=== PATIENT | male | born 1950 | race Caucasian/White ===

== ENCOUNTER 2024-09-19 15:19 | Inpatient (IN) ==
[2024-09-19 16:29] LABS: Basophils # (auto) 0.04 K/uL (0.00-0.20); Basophils % (auto) 0.5 %; Eosinophils # (auto) 0.13 K/uL (0.00-0.50); Eosinophils % (auto) 1.6 %; Hematocrit (blood only) 38.5 % (42.0-52.0); Hemoglobin 12.5 g/dl (14.0-18.0); Immature Granulocytes # (auto) 0.03 K/uL (0.01-0.20); Immature Granulocytes % (auto) 0.4 %; Lymphocytes # (auto) 1.09 K/uL (1.20-3.40); Lymphocytes % (auto) 13.5 %; Mean Corpuscular Hgb Conc 32.5 g/dL (32.0-36.0); Mean Corpuscular Volume 86.1 fL (80.0-100.0); Mean Platelet Volume 10.4 fL (9.4-12.4); Monocytes # (auto) 0.91 K/uL (0.11-0.59); Monocytes % (auto) 11.3 %; Neutrophils # (auto) 5.88 K/uL (1.40-6.50); Neutrophils % (auto) 72.7 %; Platelet Count 258 K/uL (130-400); RDW Coefficient of Variation 14.2 % (11.5-14.5); RDW Standard Deviation 43.7 fL (36.4-46.3); Red Blood Count 4.47 M/uL (4.70-6.10); White Blood Count 8.08 K/ul (4.8-10.8)
--- NOTE | 2024-09-19 16:41 | XRay Report ---
EXAM: Radiograph of the Chest 1 View INDICATION: Dyspnea. TECHNIQUE: Frontal view of the chest. COMPARISON: No relevant prior studies available. FINDINGS: Lungs and pleural spaces: Shallow inspiration with minimal atelectasis in the right lung base. No consolidation or pulmonary edema. No pleural effusion or pneumothorax. Heart: Shape and configuration within normal limits allowing for technique. Mediastinum: Normal contour. Bones/joints: No fracture, erosion or dislocation. Soft tissues: No abnormality noted. No radiopaque foreign body noted. Upper abdomen: No abnormality noted. IMPRESSION: No acute cardiopulmonary disease. ACT 112: Negative or not required by law. Electronically signed by Anay Lawrence 09-19-2024 4:41 PM
[2024-09-19 16:48] LABS: Albumin Globulin Ratio 1.3 (0.9-2); Albumin Level 4.4 gm/dl (3.4-5.0); Bilirubin,Total 0.6 mg/dl (0.2-1.0); Calcium 9.8 mg/dl (8.6-10.3); Creatinine Clr Calc Pharmacy 59.4 ml/min; Globulin 3.5 gm/dl (2.5-4.0); Total Protein 7.9 gm/dl (6.0-8.3)
[2024-09-19 16:51] LABS: Troponin I High Sensitivity 4.9 pg/ml (0-20)
[2024-09-19 16:55] LABS: INR 1.1 (0.9-1.1); Partial Thromboplastin Ratio 1.2; Partial Thromboplastin Time 31 Seconds (21-31); Prothrombin Time 11.4 Seconds (9.0-12.0)
[2024-09-19 17:40] LABS: Adenovirus PCR Not Detected (NotDetected); Bordetella parapertussis PCR Not Detected (NotDetected); Bordetella pertussis PCR Not Detected (NotDetected); Chlamydia pneumoniae PCR Not Detected (NotDetected); Coronavirus 229E PCR Not Detected (NotDetected); Coronavirus CoV-2 (COVID19)PCR Not Detected (NotDetected); Coronavirus HKU1 PCR Not Detected (NotDetected); Coronavirus NL63 PCR Not Detected (NotDetected); Coronavirus OC43PCR Not Detected (NotDetected); Human Metapneumovirus PCR Not Detected (NotDetected); Influenza A PCR Not Detected (NotDetected); Influenza B PCR Not Detected (NotDetected); Mycoplasma pneumoniae PCR Not Detected (NotDetected); Parainfluenza Virus 1 PCR Not Detected (NotDetected); Parainfluenza Virus 2 PCR Not Detected (NotDetected); Parainfluenza Virus 3 PCR Not Detected (NotDetected); Parainfluenza Virus 4 PCR Not Detected (NotDetected); Respiratory Syncytial VirusPCR Not Detected (NotDetected); Rhinovirus/Enterovirus PCR Not Detected (NotDetected)
[2024-09-19 17:59] LABS: Appearance Urine Clear (Clear); Bilirubin Urine Negative (Negative); Blood Urine Negative (Negative); Color Urine Yellow; Glucose Urine UA Trace (Negative); Ketones Urine Negative (Negative); Leukocyte Esterase Urine Negative (Negative); Nitrite Urine Negative (Negative); Protein Urine Negative (Negative); Specific Gravity Urine 1.011 (1.000-1.030); Urobilinogen Urine Negative (Negative); pH Urine 5.5 (4.5-7.5)
[2024-09-19 18:17] LABS: D Dimer 1160 ug/L FEU (0-500)
--- NOTE | 2024-09-19 18:26 | Emergency Department Note ---
History of Present Illness General Chief complaint: Leg Injury/Pain Stated complaint: LT LEG, PAIN, LT HIP PAIN, MAYBE PE Time Seen by Provider: 09/19/24 16:23 History of Present Illness Provider complaint: Right lower extremity pain shortness of breath Onset (ago): week(s) 1 73-year-old male presents emergency department for right lower extremity pain. Patient reports he has been having right lower extremity pain and swelling. He states this is a chronic thing however is been getting worse in the last week. He states he feels "like there is lactic acid buildup in there". Patient reports no trauma. He reports no excessive usage of his legs or repetitive movements or exercises. He reports no hematuria or dysuria. Patient does report some dyspnea on exertion. No chest pain. Patient reportedly has a history of a DVT. Home Medications Medication Instructions Recorded Confirmed Type atorvastatin 10 mg tablet 10 mg PO HS 01/24/19 09/19/24 History duloxetine 60 mg capsule,delayed 60 mg PO BID 01/24/19 09/19/24 History release glipizide 5 mg tablet 5 mg PO BID 01/24/19 09/19/24 History aspirin 81 mg chewable tablet 81 mg PO DAILY 09/19/24 09/19/24 History (Aspirin Childrens) bumetanide 1 mg tablet 1 mg PO DAILY 09/19/24 09/19/24 History diclofenac sodium 50 mg 50 mg PO DAILY 09/19/24 09/19/24 History tablet,delayed release insulin glargine-yfgn 100 unit/mL 32 unit subcut DAILY 09/19/24 09/19/24 History subcutaneous solution (Semglee (insulin glargine-yfgn)) metolazone 2.5 mg tablet 2.5 mg PO DAILY 09/19/24 09/19/24 History Allergies Allergy/AdvReac Type Severity Reaction Status Date / Time No Known Allergies Allergy Verified 09/19/24 21:31 Past Med/Surg History Problem List (Updated 09/19/24 @ 22:30 by Taran Berg DO) Leg edema Venous (peripheral) insufficiency Left leg pain Dyspnea on exertion Medical History Osteoarthritis Diabetes mellitus, type 2 Abnormal EKG Peripheral neuropathy Atrial fibrillation A FIB EPISODE IN THE PAST Hypertension Hyperlipidemia Surgical History History of arthroscopy RT KNEE X 2 LEFT KNEE X 2 Broken jaw REPAIR Social History Smoking Status: Never smoker Hx Alcohol Use: No Hx Substance Use: No Current Living Situation: Other Current Living Situation Comment: [facility] Feels Safe at Home: Yes Physical Exam Vital Signs Vital Signs - 24 hr 09/19/24 15:27 09/19/24 15:50 09/19/24 16:17 Temperature 36.4 C L Temperature Source Temporal Artery Scan Pulse Rate 104 H 101 H 96 H Pulse Rate [Apical] Pulse Rhythm [Apical] Pulse Strength [Apical] Respiratory Rate 18 21 Respiratory Effort / Characteristics Non-Labored Spontaneous Respiratory Depth Normal Respiratory Pattern Regular Blood Pressure 124/68 Blood Pressure [Left Arm] Blood Pressure Mean 86 Blood Pressure Mean [Left Arm] Blood Pressure Position [Left Arm] Pulse Oximetry 100 96 Oxygen Delivery Method Room Air Room Air Sepsis Recent Fever Within 48 Hours No Sepsis New/Unexplained Change in Mental Status N/A Sepsis Action Taken by Nursing No Action Required 09/19/24 17:19 09/19/24 19:00 09/19/24 19:50 Temperature Temperature Source Pulse Rate 125 H Pulse Rate [Apical] 94 H 95 H Pulse Rhythm [Apical] Regular Pulse Strength [Apical] Normal Respiratory Rate 22 18 Respiratory Effort / Characteristics Non-Labored Non-Labored Respiratory Depth Normal Respiratory Pattern Regular Regular Blood Pressure Blood Pressure [Left Arm] 149/92 H 148/84 H Blood Pressure Mean Blood Pressure Mean [Left Arm] 111 105 Blood Pressure Position [Left Arm] Sitting Pulse Oximetry 99 97 Oxygen Delivery Method Room Air Room Air Sepsis Recent Fever Within 48 Hours Sepsis New/Unexplained Change in Mental Status Sepsis Action Taken by Nursing 09/19/24 20:30 09/19/24 20:30 09/19/24 21:30 Temperature Temperature Source Pulse Rate 82 95 H Pulse Rate [Apical] 84 Pulse Rhythm [Apical] Pulse Strength [Apical] Respiratory Rate 22 20 Respiratory Effort / Characteristics Non-Labored Respiratory Depth Normal Respiratory Pattern Regular Blood Pressure 157/86 H Blood Pressure [Left Arm] 153/84 H Blood Pressure Mean 117 Blood Pressure Mean [Left Arm] 107 Blood Pressure Position [Left Arm] Pulse Oximetry 100 96 Oxygen Delivery Method Room Air Room Air Sepsis Recent Fever Within 48 Hours Sepsis New/Unexplained Change in Mental Status Sepsis Action Taken by Nursing 09/19/24 22:15 09/19/24 22:22 Temperature Temperature Source Pulse Rate 96 H Pulse Rate [Apical] 91 H Pulse Rhythm [Apical] Pulse Strength [Apical] Respiratory Rate 20 18 Respiratory Effort / Characteristics Non-Labored Respiratory Depth Normal Respiratory Pattern Regular Blood Pressure 148/85 H Blood Pressure [Left Arm] 148/85 H Blood Pressure Mean Blood Pressure Mean [Left Arm] 106 Blood Pressure Position [Left Arm] Pulse Oximetry 98 98 Oxygen Delivery Method Room Air Room Air Sepsis Recent Fever Within 48 Hours Sepsis New/Unexplained Change in Mental Status Sepsis Action Taken by Nursing Physical Exam GENERAL: Patient is surrounded by correctional officers and handcuffs and ankle cuffs. HENT: Exam performed. - Head: Normocephalic and atraumatic. - Right Ear: External ear normal. No mastoid erythema - Left Ear: External ear normal. No mastoid erythema - Mouth/Throat: The oropharynx is clear and moist. No trismus in the jaw. No dental abscesses or uvula swelling. No oropharyngeal exudate or tonsillar abscesses. EYES: Conjunctivae and EOM are normal. Pupils are equal, round, and reactive to light. Right eye exhibits no discharge. Left eye exhibits no discharge. No scleral icterus. NECK: Normal range of motion. Neck supple. No JVD present. CV: Normal rate, regular rhythm, normal heart sounds and intact distal pulses. Palpable radial pulses bue. PULM/CHEST: Effort normal and breath sounds normal. No respiratory distress. No stridor. He has no wheezes. He has no rales. ABD: The abdomen is soft. There is no tenderness. There is no rebound, no guarding. MUSC/SKEL: 1+ edema of the right lower extremity 2+ edema of the left lower extremity. Compartments of the bilateral lower extremities are soft. Stasis dermatitis bilaterally. Right lower extremity has palpable DP and PT pulses. Left lower extremity has signal present in the DP and PT pulses. NEURO: He is alert and oriented to person, place, and time. He has normal strength. No cranial nerve deficit or sensory deficit. Coordination and gait normal. GCS eye subscore is 4. GCS verbal subscore is 5. GCS motor subscore is 6. Cerebellar tests wnl. SKIN: Skin is warm and dry. He is not diaphoretic. PSYCH: He has a normal mood and affect. Behavior is normal. Judgment and thought content normal. Course Course 1623: The patient was evaluated in room B5. A complete history and physical exam was performed Cardiac monitoring: An order was placed for continuous cardiac monitoring. The monitor shows a rate of 90 with sinus rhythm interpreted by me 1954: Patient had a 9 beat run of V. tach. 2013: Spoke with Dr. Keller from cardiology. He stated to check the patient's magnesium and replete his electrolytes as needed. He states no amiodarone at this time. 2100: Vital signs stable.Labs are significant for a potassium of 3. Magnesium 1.3. Magnesium will be repleted in the emergency department and then potassium will be repleted. D-dimer was elevated. CT of the chest negative for PE. Ultrasound viewed by me showed no DVT. [facility]. Administered Medications Magnesium Sulfate/Dextrose (Magnesium Sulfate / D5w) 1 gm in 100 mls @ 100 mls/hr IV Q1H CANDY Stop: 09/19/24 22:57 Last Admin: 09/19/24 22:12 Dose: 100 mls/hr Documented By: Infusion: 09/19/24 22:09 Dose: Infused Documented By: Admin: 09/19/24 21:09 Dose: 100 mls/hr Documented By: CHRISTA Discontinued Medications Ioversol (Optiray 320 100ml) 118 ml IV ONCE ONE Stop: 09/19/24 18:39 Last Admin: 09/19/24 18:39 Dose: 118 ml Documented By: BOLA Medical Decision Making Laboratory Data Attestation: I reviewed the patient's lab results. 09/19/24 16:01 09/19/24 16:01 Lab Results 09/19/24 09/19/24 09/19/24 Range/Units 16:01 16:44 16:51 WBC 8.08 (4.8-10.8) K/ul RBC 4.47 L (4.70-6.10) M/uL Hgb 12.5 L (14.0-18.0) g/dl Hct 38.5 L (42.0-52.0) % MCV 86.1 (80.0-100.0) fL MCH 28.0 (25.0-34.0) pg MCHC 32.5 (32.0-36.0) g/dL RDW Std Deviation 43.7 (36.4-46.3) fL RDW Coeff of Joselin 14.2 (11.5-14.5) % Plt Count 258 (130-400) K/uL MPV 10.4 (9.4-12.4) fL Immature Gran % (Auto) 0.4 % Neut % (Auto) 72.7 % Lymph % (Auto) 13.5 % Braxton % (Auto) 11.3 % Eos % (Auto) 1.6 % Baso % (Auto) 0.5 % Neut # (Auto) 5.88 (1.40-6.50) K/uL Lymph # (Auto) 1.09 L (1.20-3.40) K/uL Braxton # (Auto) 0.91 H (0.11-0.59) K/uL Eos # (Auto) 0.13 (0.00-0.50) K/uL Baso # (Auto) 0.04 (0.00-0.20) K/uL Immature Gran # (Auto) 0.03 (0.01-0.20) K/uL PT 11.4 (9.0-12.0) Seconds INR 1.1 (0.9-1.1) APTT 31 (21-31) Seconds PTT Ratio 1.2 D-Dimer 1160 H* (0-500) ug/L FEU Sodium 138 (136-145) mmol/L Potassium 3.0 L (3.5-5.1) mmol/L Chloride 96 L (98-107) mmol/L Carbon Dioxide 33 H (21-32) mmol/L Anion Gap 9 (3-11) BUN 34 H (6-23) mg/dl Creatinine 1.36 (0.6-1.4) mg/dl Est Cr Clr Drug Dosing 59.4 ml/min eGFR 55.29 BUN/Creatinine Ratio 25.0 H (10-20) Glucose 158 H (70-99(Fasting)) mg/dl Calcium 9.8 (8.6-10.3) mg/dl Magnesium 1.3 L (1.7-2.4) mg/dl Total Bilirubin 0.6 (0.2-1.0) mg/dl AST 16 (13-39) U/L ALT 13 (7-52) U/L Alkaline Phosphatase 82 (34-104) U/L Total Creatine Kinase 131 (30-223) U/L Troponin I High Sens 4.9 (0-20) pg/ml B-Natriuretic Peptide (0-100) pg/ml Total Protein 7.9 (6.0-8.3) gm/dl Albumin 4.4 (3.4-5.0) gm/dl Globulin 3.5 (2.5-4.0) gm/dl Albumin/Globulin Ratio 1.3 (0.9-2) Urine Color Yellow Urine Appearance Clear (Clear) Urine pH 5.5 (4.5-7.5) Ur Specific [place] 1.011 (1.000-1.030) Urine Protein Negative (Negative) Urine Glucose (UA) Trace H (Negative) Urine Ketones Negative (Negative) Urine Blood Negative (Negative) Urine Nitrite Negative (Negative) Urine Bilirubin Negative (Negative) Urine Urobilinogen Negative (Negative) Ur Leukocyte Esterase Negative (Negative) Adenovirus (PCR) Not Detected (NotDetected) B. pertussis DNA (PCR) Not Detected (NotDetected) B.parapertussis DNA PCR Not Detected (NotDetected) C. pneumoniae DNA (PCR) Not Detected (NotDetected) Coronavirus OC43 (PCR) Not Detected (NotDetected) Coronavirus HKU1 (PCR) Not Detected (NotDetected) Coronavirus 229E (PCR) Not Detected (NotDetected) SARS-CoV-2 (PCR) Not Detected (NotDetected) Coronavirus NL63 (PCR) Not Detected (NotDetected) Human Metapneumovir PCR Not Detected (NotDetected) Influenza Type A (PCR) Not Detected (NotDetected) Influenza Type B (PCR) Not Detected (NotDetected) M. pneumoniae (PCR) Not Detected (NotDetected) Parainfluenza 1 (PCR) Not Detected (NotDetected) Parainfluenza 2 (PCR) Not Detected (NotDetected) Parainfluenza 3 (PCR) Not Detected (NotDetected) Parainfluenza 4 (PCR) Not Detected (NotDetected) RSV (PCR) Not Detected (NotDetected) Entero/Rhino (PCR) Not Detected (NotDetected) 09/19/24 Range/Units 17:27 WBC (4.8-10.8) K/ul RBC (4.70-6.10) M/uL Hgb (14.0-18.0) g/dl Hct (42.0-52.0) % MCV (80.0-100.0) fL MCH (25.0-34.0) pg MCHC (32.0-36.0) g/dL RDW Std Deviation (36.4-46.3) fL RDW Coeff of Joselin (11.5-14.5) % Plt Count (130-400) K/uL MPV (9.4-12.4) fL Immature Gran % (Auto) % Neut % (Auto) % Lymph % (Auto) % Braxton % (Auto) % Eos % (Auto) % Baso % (Auto) % Neut # (Auto) (1.40-6.50) K/uL Lymph # (Auto) (1.20-3.40) K/uL Braxton # (Auto) (0.11-0.59) K/uL Eos # (Auto) (0.00-0.50) K/uL Baso # (Auto) (0.00-0.20) K/uL Immature Gran # (Auto) (0.01-0.20) K/uL PT (9.0-12.0) Seconds INR (0.9-1.1) APTT (21-31) Seconds PTT Ratio D-Dimer (0-500) ug/L FEU Sodium (136-145) mmol/L Potassium (3.5-5.1) mmol/L Chloride (98-107) mmol/L Carbon Dioxide (21-32) mmol/L Anion Gap (3-11) BUN (6-23) mg/dl Creatinine (0.6-1.4) mg/dl Est Cr Clr Drug Dosing ml/min eGFR BUN/Creatinine Ratio (10-20) Glucose (70-99(Fasting)) mg/dl Calcium (8.6-10.3) mg/dl Magnesium (1.7-2.4) mg/dl Total Bilirubin (0.2-1.0) mg/dl AST (13-39) U/L ALT (7-52) U/L Alkaline Phosphatase (34-104) U/L Total Creatine Kinase (30-223) U/L Troponin I High Sens (0-20) pg/ml B-Natriuretic Peptide 25 (0-100) pg/ml Total Protein (6.0-8.3) gm/dl Albumin (3.4-5.0) gm/dl Globulin (2.5-4.0) gm/dl Albumin/Globulin Ratio (0.9-2) Urine Color Urine Appearance (Clear) Urine pH (4.5-7.5) Ur Specific [place] (1.000-1.030) Urine Protein (Negative) Urine Glucose (UA) (Negative) Urine Ketones (Negative) Urine Blood (Negative) Urine Nitrite (Negative) Urine Bilirubin (Negative) Urine Urobilinogen (Negative) Ur Leukocyte Esterase (Negative) Adenovirus (PCR) (NotDetected) B. pertussis DNA (PCR) (NotDetected) B.parapertussis DNA PCR (NotDetected) C. pneumoniae DNA (PCR) (NotDetected) Coronavirus OC43 (PCR) (NotDetected) Coronavirus HKU1 (PCR) (NotDetected) Coronavirus 229E (PCR) (NotDetected) SARS-CoV-2 (PCR) (NotDetected) Coronavirus NL63 (PCR) (NotDetected) Human Metapneumovir PCR (NotDetected) Influenza Type A (PCR) (NotDetected) Influenza Type B (PCR) (NotDetected) M. pneumoniae (PCR) (NotDetected) Parainfluenza 1 (PCR) (NotDetected) Parainfluenza 2 (PCR) (NotDetected) Parainfluenza 3 (PCR) (NotDetected) Parainfluenza 4 (PCR) (NotDetected) RSV (PCR) (NotDetected) Entero/Rhino (PCR) (NotDetected) Imaging Data Attestation: I personally reviewed and interpreted this imaging study as follows: My Impression: Chest x-ray negative. Airway clear. No pneumothorax. No consolidation. No cardiomegaly or cephalization.. No free air under the diaphragm. No fractures of the skeletal structures. Ultrasound bilateral lower extremities: No DVT Radiologist's Impression: Chest X-Ray 09/19/24 16:17 EXAM: Radiograph of the Chest 1 View INDICATION: Dyspnea. TECHNIQUE: Frontal view of the chest. COMPARISON: No relevant prior studies available. FINDINGS: Lungs and pleural spaces: Shallow inspiration with minimal atelectasis in the right lung base. No consolidation or pulmonary edema. No pleural effusion or pneumothorax. Heart: Shape and configuration within normal limits allowing for technique. Mediastinum: Normal contour. Bones/joints: No fracture, erosion or dislocation. Soft tissues: No abnormality noted. No radiopaque foreign body noted. Upper abdomen: No abnormality noted. IMPRESSION: No acute cardiopulmonary disease. ACT 112: Negative or not required by law. Electronically signed by Anay Lawrence 09-19-2024 4:41 PM Venous Doppler Study 09/19/24 17:07 Exam(s): US VENOUS BILATERAL LOWER EXTREMITIES EXAM: US Duplex Bilateral Lower Extremities Veins CLINICAL HISTORY: Reason for exam: ro dvt. TECHNIQUE: Real-time duplex ultrasound scan of the bilateral lower extremity veins integrating B-mode two-dimensional vascular structure, Doppler spectral analysis, color flow Doppler imaging and compression. COMPARISON: No relevant prior studies available. FINDINGS: Right deep veins: Unremarkable. No DVT in the right common femoral, femoral, proximal deep femoral or popliteal veins. The veins demonstrate normal color flow, are normally compressible, with normal phasic flow and/or augmentation response. Right superficial veins: Unremarkable. No thrombus in the visualized right great saphenous vein. Left deep veins: Unremarkable. No DVT in the left common femoral, femoral, proximal deep femoral or popliteal veins. The veins demonstrate normal color flow, are normally compressible, with normal phasic flow and/or augmentation response. Left superficial veins: Unremarkable. No thrombus in the visualized left great saphenous vein. Soft tissues: No acute abnormality. No popliteal cyst. IMPRESSION: No evidence of deep venous thrombosis. Electronically signed by: Saeed Polo M.D. 09/19/24 22:16 PM Chest CTA 09/19/24 18:17 EXAM: CT Angiography Chest With Intravenous Contrast INDICATION: Increased shortness of breath. History of DVT. TECHNIQUE: Axial computed tomographic angiography images of the chest with intravenous contrast. Sagittal and coronal reformatted images were created and reviewed. This CT exam was performed using one or more of the following dose reduction techniques: automated exposure control, adjustment of the mA and/or kV according to patient size, and/or use of iterative reconstruction technique. MIP reconstructed images were created and reviewed. CONTRAST: 118ml of Optiray 320 was administered intravenously. COMPARISON: No relevant prior studies available. FINDINGS: Pulmonary arteries: No abnormality noted. No pulmonary embolism. Aorta: No acute change noted. No thoracic aortic aneurysm or dissection. Great vessels of aortic arch: Normal variant aberrant right subclavian artery. Lungs and pleural spaces: There is mild lower lobe airway thickening and central peribronchial groundglass opacity. There is linear atelectasis in the right middle lobe. No significant effusion. Heart: No abnormality noted. No cardiomegaly. No significant pericardial effusion. No evidence of RV dysfunction. Bones/joints: Degenerative changes noted throughout the spine. No acute osseous abnormality seen. Soft tissues: No abnormality noted. Lymph nodes: No abnormality noted. No enlarged lymph nodes. Kidneys and ureters: Small hypodense nodule right kidney likely a cyst. No further assessment required. IMPRESSION: No pulmonary embolus or aortic dissection. ACT 112: Negative or not required by law. Electronically signed by Anay Lawrence 09-19-2024 7:09 PM ECG Data Attestation: I personally reviewed and interpreted this ECG as follows: Indication: + SOB/dyspnea Rate (beats per minute): 94 Rhythm: + normal sinus ECG Intervals/blocks: + First degree AV block and + Normal QT-c ECG ST segments: + Normal ST segments ECG Findings: + LVH Additional Comments: QRS 78 MDM Narrative 1623: The patient was evaluated in room B5. A complete history and physical exam was performed Cardiac monitoring: An order was placed for continuous cardiac monitoring. The monitor shows a rate of 90 with sinus rhythm interpreted by 1954: Patient had a 9 beat run of V. tach. 2013: Spoke with Dr. Keller from cardiology. He stated to check the patient's magnesium and replete his electrolytes as needed. He states no amiodarone at this time. 2100: Vital signs stable.Labs are significant for a potassium of 3. Magnesium 1.3. Magnesium will be repleted in the emergency department and then potassium will be repleted. D-dimer was elevated. CT of the chest negative for PE. Ultrasound viewed by me showed no DVT. [facility] Impression & Plan Hypomagnesemia, Hypokalemia, V-tach Discharge Plan Visit Data Chief Complaint: Leg Injury/Pain Stated Complaint: LT LEG, PAIN, LT HIP PAIN, MAYBE PE ED Provider: Nabil Avila Discharge Problem: Hypomagnesemia, Hypokalemia, V-tach Patient Disposition: Admitted As Inpatient Discharge Instructions Interventions: ED Discharge Assessment Last Done: 09/19/24 22:22 Forms Stand Alone Forms: [facility] Prescriptions Prescriptions: No Action atorvastatin 10 mg Tablet 10 mg PO HS glipizide 5 mg Tablet 5 mg PO BID duloxetine 60 mg Capsule,Delayed Release(Dr/Ec) 60 mg PO BID aspirin [Aspirin Childrens] 81 mg Tablet,Chewable 81 mg PO DAILY metolazone 2.5 mg Tablet 2.5 mg PO DAILY insulin glargine-yfgn [Semglee(insulin glargine-yfgn)] 100 unit/mL Solution 32 unit SUBCUT DAILY bumetanide 1 mg Tablet 1 mg PO DAILY diclofenac sodium 50 mg Tablet,Delayed Release (Dr/Ec) 50 mg PO DAILY Referrals Referrals: Inessa LEVINE [Primary Care Provider] -
[2024-09-19] MEDS: OPTIRAY 320 100ml IV ONE (18:39)
--- NOTE | 2024-09-19 19:09 | CT Scan Report ---
EXAM: CT Angiography Chest With Intravenous Contrast INDICATION: Increased shortness of breath. History of DVT. TECHNIQUE: Axial computed tomographic angiography images of the chest with intravenous contrast. Sagittal and coronal reformatted images were created and reviewed. This CT exam was performed using one or more of the following dose reduction techniques: automated exposure control, adjustment of the mA and/or kV according to patient size, and/or use of iterative reconstruction technique. MIP reconstructed images were created and reviewed. CONTRAST: 118ml of Optiray 320 was administered intravenously. COMPARISON: No relevant prior studies available. FINDINGS: Pulmonary arteries: No abnormality noted. No pulmonary embolism. Aorta: No acute change noted. No thoracic aortic aneurysm or dissection. Great vessels of aortic arch: Normal variant aberrant right subclavian artery. Lungs and pleural spaces: There is mild lower lobe airway thickening and central peribronchial groundglass opacity. There is linear atelectasis in the right middle lobe. No significant effusion. Heart: No abnormality noted. No cardiomegaly. No significant pericardial effusion. No evidence of RV dysfunction. Bones/joints: Degenerative changes noted throughout the spine. No acute osseous abnormality seen. Soft tissues: No abnormality noted. Lymph nodes: No abnormality noted. No enlarged lymph nodes. Kidneys and ureters: Small hypodense nodule right kidney likely a cyst. No further assessment required. IMPRESSION: No pulmonary embolus or aortic dissection. ACT 112: Negative or not required by law. Electronically signed by Anay Lawrence 09-19-2024 7:09 PM
[2024-09-19 20:33] LABS: Magnesium 1.3 mg/dl (1.7-2.4)
[2024-09-19] MEDS ORDERED: POTASSIUM CHLORIDE 10 MEQ TABCR PO STA (20:57)
[2024-09-19] MEDS: MAGNESIUM SULFATE / D5W 1 GM/100 ML BAG IV SCH (21:09)
--- NOTE | 2024-09-19 21:55 | History & Physical Report ---
Date of Service September 19, 2024 Assessment & Plan (1) Dyspnea on exertion: (2) Left leg pain: (3) Diabetes mellitus, type 2: (4) Hypertension: (5) Hyperlipidemia: (6) Peripheral neuropathy: (7) Venous (peripheral) insufficiency: (8) Osteoarthritis: (9) Leg edema: (10) Atrial fibrillation: Plan 73 yo male PMHx cardiomegaly, T2DM on insulin, HLD, HTN, PVD, venous insufficiency, osteoarthritis, neuropathy who was in his usual state of health until one week ago is admitted with LLE pain and CAMARA. #Dyspnea on exertion CTA negative for PE Had run of Vtach in ED Mg and K low on admission - repleted, repeat labs in am Troponin negative Case discussed with Dr. Keller - no further management needed tonight if patient remains hemodynamically stable Cardiology consult placed Echo with bubble study ordered No history of AR, CHF but significant PVD History of afib - pt states this is paroxysmal, not on anticoagulation, would consider starting if not contraindicated #Left leg pain Has chronic leg pain/arthritis but says this is different from baseline LE dopplers performed, no evidence of DVT CK normal In setting of chronic venous stasis/PVD would consider vascular consult Patient on Bumex and metolazone - will continue Bumex, hold metolazone in setting of electrolyte abnormalities #T2DM Hold home glipizide Insulin ISS Glargine 18U BID #HTN Not currently on medication besides diuretics #HLD Cont atorvastatin #Peripheral neuropathy/arthritis Cont duloxetine Cont diclofenac - Cr acceptable FENGI: heart health/DM2 Code status: full DVT prophylaxis: lovenox Isolation: none Disposition: med-tele History of Present Illness Primary Care Provider: ABNER Wylie 73 yo male PMHx cardiomegaly, T2DM on insulin, HLD, HTN, PVD, venous insufficiency, osteoarthritis, neuropathy who was in his usual state of health until one week ago is admitted with LLE pain and CAMARA. Over the last week the patient states that he has had progressive LLE pain, primarily in the thigh that he describes as "lactic acid buildup" and cramping. He is able to ambulate normally. He has also noted that he has had increasing CAMARA with ambulation of distances of 30-40 feet. He denies chest pain during these episodes, he states that he just becomes "winded." At the time of our encounter he denies CP, SOB, abdominal pain, nausea, vomiting, lightheadedness, dizziness, and diarrhea. ED course: Labs revealed low sodium and mag - these were repleted CTA performed was negative for acute PE LE dopplers were performed - no acute DVT present Allergies Allergy/AdvReac Type Severity Reaction Status Date / Time No Known Allergies Allergy Verified 09/19/24 21:31 Home Medications Medication Instructions Recorded Confirmed Type atorvastatin 10 mg tablet 10 mg PO HS 01/24/19 09/19/24 History duloxetine 60 mg capsule,delayed 60 mg PO BID 01/24/19 09/19/24 History release glipizide 5 mg tablet 5 mg PO BID 01/24/19 09/19/24 History aspirin 81 mg chewable tablet 81 mg PO DAILY 09/19/24 09/19/24 History (Aspirin Childrens) bumetanide 1 mg tablet 1 mg PO DAILY 09/19/24 09/19/24 History diclofenac sodium 50 mg 50 mg PO DAILY 09/19/24 09/19/24 History tablet,delayed release insulin glargine-yfgn 100 unit/mL 32 unit subcut DAILY 09/19/24 09/19/24 History subcutaneous solution (Semglee (insulin glargine-yfgn)) metolazone 2.5 mg tablet 2.5 mg PO DAILY 09/19/24 09/19/24 History Past Med/Surg History Problem List Leg edema Venous (peripheral) insufficiency Left leg pain Dyspnea on exertion Medical History Osteoarthritis Diabetes mellitus, type 2 Abnormal EKG Peripheral neuropathy Atrial fibrillation A FIB EPISODE IN THE PAST Hypertension Hyperlipidemia Surgical History History of arthroscopy RT KNEE X 2 LEFT KNEE X 2 Broken jaw REPAIR Social History Smoking Status: Never smoker Hx Alcohol Use: No Hx Substance Use: No Current Living Situation: Other Current Living Situation Comment: [facility] Feels Safe at Home: Yes Review of Systems Review of Systems: reviewed, per HPI Physical Exam Physical Exam: Constitutional: age appropriate, no acute distress HEENT: NCAT, no conjunctival injection CV: regular rhythm, no murmur appreciated, extremities well-perfused, +trace edema b/l LE Resp: CTABL, no wheezes/rales/rhonchi appreciated, no increased work of breathing GI: non-distended MSK: no gross deformities appreciated Skin: warm, dry, no rash appreciated, venous stasis discoloration L>R in b/l LE - states this is his baseline Neuro: alert, oriented, no focal neurologic deficit appreciated Results & Data Results & Data Vital Signs (Past 12 Hours) Vital Signs Temp Pulse Pulse Resp BP BP Pulse Ox 09/19/24 21:30 95 H 20 157/86 H 96 09/19/24 20:30 82 09/19/24 20:30 84 22 153/84 H 100 09/19/24 19:50 125 H 09/19/24 19:00 95 H 18 148/84 H 97 09/19/24 17:19 94 H 22 149/92 H 99 09/19/24 16:17 96 H 21 96 09/19/24 15:50 101 H 09/19/24 15:27 36.4 C L 104 H 18 124/68 100 O2 Del Method 09/19/24 21:30 Room Air 09/19/24 20:30 09/19/24 20:30 Room Air 09/19/24 19:50 09/19/24 19:00 Room Air 09/19/24 17:19 Room Air 09/19/24 16:17 Room Air 09/19/24 15:50 09/19/24 15:27 Room Air Code Status & VTE Plan VTE Prophylaxis Plan VTE Prophylaxis will be ordered: Yes Supervising Physician Co-Signing Physician Notes Patient seen and examined, chart reviewed, case discussed with Dr. Berg and I agree with the assessment and plan as above. In brief, patient is a 73yo male, currently incarcerated, presenting with LE discomfort and edema a well as CAMARA. Patient with reported brief run of NSVT x 9 beats in the ER On exam he is resting comfortably, NAD Skin - chronic venous stasis changes present on bilateral LE, do not appear to be infected HEENT- MMM, Neck supple Heart - +S1/S2, regular with ectopy, no m/r/g Lungs - CTA, no rales/rhonchi/wheezes Abd - +BS, soft, NT/ND Ext- chronic venous stasis changes present Labs and images reviewed [id number]=[id number] K=3 Mg=1.3 Assessment/plan NSVT - noted in the ER. Electrolytes being repleted (Mg x 2gm, KCl 40mEq ordered again) Check 2D echo Telemetry monitoring - may need outpatient monitoring Remainder as above Resident Activity Tracking Resident Involvement: Resident Care Provided Care Provided: Adult Hospital Medicine (3) Diabetes mellitus, type 2 Diabetes mellitus complication detail: with polyneuropathy Diabetes mellitus complication status: with neurologic complications Diabetes mellitus residential insulin use: with residential use Qualified Code(s): E11.42 - Type 2 diabetes mellitus with diabetic polyneuropathy; Z79.4 - [facility] (current) use of insulin (4) Hypertension Hypertension type: primary hypertension Qualified Code(s): I10 - Essential (primary) hypertension (5) Hyperlipidemia Hyperlipidemia type: unspecified Qualified Code(s): E78.5 - Hyperlipidemia, unspecified (6) Peripheral neuropathy Peripheral neuropathy type: polyneuropathy associated with underlying disease Qualified Code(s): G63 - Polyneuropathy in diseases classified elsewhere (8) Osteoarthritis Osteoarthritis location: multiple joints Osteoarthritis type: primary Qualified Code(s): M15.0 - Primary generalized (osteo)arthritis (10) Atrial fibrillation Atrial fibrillation type: paroxysmal Qualified Code(s): I48.0 - Paroxysmal atrial fibrillation
--- NOTE | 2024-09-19 22:17 | Ultrasound Report ---
Exam(s): US VENOUS BILATERAL LOWER EXTREMITIES EXAM: US Duplex Bilateral Lower Extremities Veins CLINICAL HISTORY: Reason for exam: ro dvt. TECHNIQUE: Real-time duplex ultrasound scan of the bilateral lower extremity veins integrating B-mode two-dimensional vascular structure, Doppler spectral analysis, color flow Doppler imaging and compression. COMPARISON: No relevant prior studies available. FINDINGS: Right deep veins: Unremarkable. No DVT in the right common femoral, femoral, proximal deep femoral or popliteal veins. The veins demonstrate normal color flow, are normally compressible, with normal phasic flow and/or augmentation response. Right superficial veins: Unremarkable. No thrombus in the visualized right great saphenous vein. Left deep veins: Unremarkable. No DVT in the left common femoral, femoral, proximal deep femoral or popliteal veins. The veins demonstrate normal color flow, are normally compressible, with normal phasic flow and/or augmentation response. Left superficial veins: Unremarkable. No thrombus in the visualized left great saphenous vein. Soft tissues: No acute abnormality. No popliteal cyst. IMPRESSION: No evidence of deep venous thrombosis. Electronically signed by: Saeed Polo M.D. 09/19/24 22:16 PM
[2024-09-19] MEDS ORDERED: MAGNESIUM HYDROXIDE SUSP 30 ML UDC PO PRN (23:23)
[2024-09-19] MEDS ORDERED: DEXTROSE 50% 50 ML SYRINGE IV PRN (23:23)
[2024-09-19] MEDS ORDERED: GLUCOSE 10 TAB/TUBE PO PRN (23:23)
[2024-09-19] MEDS ORDERED: CARBOHYDRATES FOR HYPOGLYCEMIA PO PRN (23:23)
[2024-09-19] MEDS ORDERED: POLYETHYLENE (MIRALAX) 17 GM PACK PO PRN (23:23)
[2024-09-19] MEDS ORDERED: ALUMINUM/MAGNESIUM SUSP 30 ML UDC PO PRN (23:23)
[2024-09-19] MEDS ORDERED: GLUCOSE 40% GEL 15 GM TUBE PO PRN (23:23)
[2024-09-19] MEDS ORDERED: ONDANSETRON INJ 2 MG/ML 2 ML VIAL IV PRN (23:23)
[2024-09-19] MEDS ORDERED: ACETAMINOPHEN 325 MG TAB PO PRN (23:23)
[2024-09-19] MEDS ORDERED: GLUCAGON FOR INJ 1 MG VIAL SQ PRN (23:23)
--- NOTE | 2024-09-19 23:58 | Billing Data ---
Date of Service September 19, 2024 Coding Level of Care Code 92337 INT INP/OBS CARE
[2024-09-20] MEDS: POTASSIUM CHLORIDE CRTAB 20 MEQ TABCR PO STA (00:32)
[2024-09-20] MEDS: POTASSIUM CHLORIDE 10 MEQ TABCR PO ONE (02:57)
[2024-09-20 06:26] LABS: Basophils # (auto) 0.04 K/uL (0.00-0.20); Basophils % (auto) 0.4 %; Eosinophils # (auto) 0.15 K/uL (0.00-0.50); Eosinophils % (auto) 1.6 %; Hematocrit (blood only) 37.5 % (42.0-52.0); Hemoglobin 12.6 g/dl (14.0-18.0); Immature Granulocytes # (auto) 0.02 K/uL (0.01-0.20); Immature Granulocytes % (auto) 0.2 %; Lymphocytes # (auto) 1.22 K/uL (1.20-3.40); Lymphocytes % (auto) 13.1 %; Mean Corpuscular Hemoglobin 28.3 pg (25.0-34.0); Mean Corpuscular Hgb Conc 33.6 g/dL (32.0-36.0); Mean Corpuscular Volume 84.3 fL (80.0-100.0); Mean Platelet Volume 10.7 fL (9.4-12.4); Monocytes # (auto) 0.87 K/uL (0.11-0.59); Monocytes % (auto) 9.4 %; Neutrophils % (auto) 75.3 %; Platelet Count 264 K/uL (130-400); RDW Coefficient of Variation 14.1 % (11.5-14.5); RDW Standard Deviation 43.4 fL (36.4-46.3); Red Blood Count 4.45 M/uL (4.70-6.10)
[2024-09-20 07:04] LABS: Albumin Globulin Ratio 1.1 (0.9-2); Albumin Level 3.7 gm/dl (3.4-5.0); Calcium 9.5 mg/dl (8.6-10.3); Creatinine Clr Calc Pharmacy 75.4 ml/min; Globulin 3.5 gm/dl (2.5-4.0); Magnesium 1.6 mg/dl (1.7-2.4); Potassium 3.1 mmol/L (3.5-5.1); Total Protein 7.2 gm/dl (6.0-8.3)
[2024-09-20 07:15] LABS: Estimated Average Glucose 177 mg/dl; Hemoglobin A1C 7.8 % (4.5-5.6)
[2024-09-20] MEDS: ASPIRIN 81 MG ECTAB PO SCH (08:34)
[2024-09-20] MEDS: BUMETANIDE 1 MG TAB PO SCH (08:35)
[2024-09-20] MEDS: DULoxetine HCL 60 MG CAP PO SCH (08:35)
[2024-09-20] MEDS: ENOXAPARIN INJ 40 MG/0.4 ML SYR SQ SCH (08:35)
[2024-09-20] MEDS: DICLOFENAC SODIUM 25 MG TABDR PO SCH (08:35)
[2024-09-20] MEDS: LANTUS PER UNIT CHARGE SQ SCH (08:41)
[2024-09-20] MEDS: INSULIN ASPART PER UNIT CHARGE SC SCH (08:42)
--- NOTE | 2024-09-20 08:50 | Electrocardiogram Report ---
Test Reason : Blood Pressure : */* mmHG Vent. Rate : 94 BPM Atrial Rate : 94 BPM P-R Int : 242 ms QRS Dur : 78 ms QT Int : 372 ms P-R-T Axes : 46 -35 24 degrees QTcB Int : 465 ms Sinus rhythm with 1st degree A-V block Left anterior fascicular block Minimal voltage criteria for LVH, may be normal variant ( R in aVL ) Possible Old Anteroseptal infarct Abnormal ECG No previous ECGs available Confirmed by Pan Keller [id number]) on 09/20/2024 8:50:42 AM Referred By: Inessa LEVINE Confirmed By: Pan Keller
--- NOTE | 2024-09-20 08:56 | Hospitalist Progress Note ---
Date of Service September 20, 2024 Assessment & Plan (1) Dyspnea on exertion: Plan: Presented with LLE pain and CAMARA x 1 week - CXR unremarkable, CTA negative for PE, venous Doppler negative for DVT - Troponin negative - Had 9 beat run of Vtach in ED - suspect secondary to electrolyte derangements - Hypokalemia and hypomagnesemia persist despite repletion > Mag and potassium repleted. Monitor with AM labs - No history of ME, CHF but significant PVD - History of afib - pt states this is paroxysmal, not on anticoagulation - EKG shows NSR with 1st degree AV block - Reviewed telemetry -- NSR in 90s - Echo with bubble study: EF>70%, no interarterial shunt, hyperdynamic LV with mild dynamic LV outflow tract obstruction - Cardiology consulted, appreciate recommendations > Recommend discontinuing diuretics and using compression stockings. Loss of mild progressive lower extremity edema to avoid volume depletion electrolyte derangement > If using PRN diuretic for abrupt weight gain, also prescribe oral K and mag supplements to be taken with diuretic (2) Left leg pain: Plan: Has chronic leg pain/arthritis but says this is different from baseline - Venous Doppler negative for DVT - CK normal - Patient on Bumex and metolazone - cardiology recommends DISCONTINUING diuretics in setting of euvolemia to mild hypovolemia - Suspect lumbar radiculopathy or hip arthritis related (3) Diabetes mellitus, type 2: Plan: Hold home glipizide Glargine 18U BID SSI, adjust as needed: --Goal BSG Range: Low 100 mg/dL, High 140 mg/dL --Correction Factor: 25 mg/dL/unit --Carbohydrate ratio = 8 g/unit --BSGs ACHS if eating, q6h if npo A1c 7.8% (4) Hypertension: Plan: Not currently on medication besides diuretics - Blood pressures stable Plan Repleted potassium and magnesium Reviewed telemetry Discontinued diuretics Chronic stable issues: Hyperlipidemia: Continue atorvastatin Peripheral neuropathy/arthritis: Continue duloxetine and diclofenac, Cr acceptable VTE PPx: Lovenox CODE STATUS: Full code Admission and Anticipated Discharge Date Admission Date: September 19, 2024 Subjective Patient seen and evaluated at bedside with correctional guards present. He reports feeling well at this time. He states his CAMARA began about 1 week ago, denies any precipitating factors. He notes his LLE has a chronic dull achy pain, with intermittent sharp cramping. We discussed repleting his electrolyte abnormalities and his imaging results so far. We also discussed potentially changing his diuretic regimen. Patient was cooperative and respectful throughout visit. He denies any additional complaints or concerns at this time. Physical Exam Physical Exam: General: No acute distress, nondiaphoretic, well-developed, well-nourished. Skin: Venous stasis discoloration L>R in lower extremities bilaterally. No edema noted. Cardiac: Regular rate and rhythm without murmurs gallops or rubs. Pulm: Clear to auscultation bilaterally without wheezes, rales or rhonchi. No respiratory distress. 95% on room air. Abdominal: Soft, nontender, nondistended. Bowel sounds present. Neuro: A&O x3. No focal neurological deficits. Results & Data Results & Data Vital Signs (Past 12 Hours) Vital Signs Temp Pulse Pulse Pulse Resp BP BP 09/20/24 08:00 09/20/24 07:57 97.7 F 97 H 18 134/80 09/20/24 07:00 103 H 09/20/24 04:16 98.2 F 103 H 18 144/84 H 09/19/24 23:40 97 H 09/19/24 23:15 99.3 F 97 H 18 146/82 H 09/19/24 22:22 96 H 18 148/85 H 09/19/24 22:15 91 H 20 148/85 H 09/19/24 21:30 95 H 20 157/86 H Pulse Ox O2 Del Method 09/20/24 08:00 Room Air 09/20/24 07:57 95 Room Air 09/20/24 07:00 09/20/24 04:16 94 Room Air 09/19/24 23:40 09/19/24 23:15 96 Room Air 09/19/24 22:22 98 Room Air 09/19/24 22:15 98 Room Air 09/19/24 21:30 96 Room Air Laboratory Results Reviewed CBC Reviewed chemistries Reviewed UA Reviewed respiratory biofire Diagnostic Findings Reviewed CXR Reviewed chest CTA Reviewed venous dopplers Reviewed echocardiogram Interpretation summary Left ventricle is hyperdynamic. Left ventricular EF=> 70%. Mild dynamic left ventricular outflow tract obstruction. The left ventricular wall motion is normal. There is mild concentric left ventricular hypertrophy. The right ventricular cavity is small. The right ventricular systolic function is normal. Vena cava not visualized, likely reduced diameter. No significant valvular disease. Injection of contrast documented no interarterial shunt. PG Care Time/CCT Total # of Minutes Spent Total Time Spent with Patient: Total time spent is greater than 50% in coordination of care (as documented) at patient's floor/unit and/or counseling patient: Coding Level of Care Code 74699 SUB INP/OBS CARE 3/50MIN Diagnoses Dyspnea on exertion R06.09 Left leg pain M79.605 Type 2 diabetes mellitus with diabetic polyneuropathy, with long-term current use of insulin E11.42; Z79.4 Diabetes mellitus complication detail: with polyneuropathy Diabetes mellitus complication status: with neurologic complications Diabetes mellitus intermodal truck driver insulin use: with intermodal truck driver use Primary hypertension I10 Hypertension type: primary hypertension (3) Diabetes mellitus, type 2 Diabetes mellitus complication detail: with polyneuropathy Diabetes mellitus complication status: with neurologic complications Diabetes mellitus residential insulin use: with intermodal truck driver use Qualified Code(s): E11.42 - Type 2 diabetes mellitus with diabetic polyneuropathy; Z79.4 - [facility] (current) use of insulin (4) Hypertension Hypertension type: primary hypertension Qualified Code(s): I10 - Essential (primary) hypertension
[2024-09-20] MEDS: POTASSIUM CHLORIDE / WTR 10 MEQ/100 ML PLCT IV SCH (09:11)
[2024-09-20] MEDS: POTASSIUM CHLORIDE CRTAB 20 MEQ TABCR PO SCH (09:11)
[2024-09-20] MEDS: MAGNESIUM SULFATE / D5W 1 GM/100 ML BAG IV SCH (09:12)
--- NOTE | 2024-09-20 11:44 | Cardiology Consultation ---
Date of Consultation September 20, 2024 Assessment & Plan (1) Nonsustained ventricular tachycardia: (2) Venous (peripheral) insufficiency: (3) Dyspnea on exertion: (4) Hypokalemia: (5) Hypomagnesemia: (6) Left leg pain: Plan 73-year-old man with no cardiac history on chronic diuretics for leg edema who presented with leg pain but was admitted due to history of recent decline in exercise tolerance and a single 9 beat episode of ventricular tachycardia while in the ER. He currently appears euvolemic (based on neck veins) to mildly hypovolemic (based on hyperdynamic LV with dynamic LVOT obstruction and tachycardic response to upright position/minor activity such as walking to the bathroom) with no evidence of leg edema, as such would discontinue his diuretics. By history he has no orthopnea or PND, his chest x-ray and chest CT showed no pulmonary edema, his BNP is normal, thus no evidence of current or recent heart failure. Would allow some mild permissive leg edema to avoid volume depletion and electrolyte derangement from chronic high-dose diuretics, could use compression stockings and perhaps intermittent/PRN diuretic use for recurrent leg edema if associated with any abrupt weight gain (suggesting generalized volume overload rather than localized fluid redistribution). Most certainly his transient/minor ventricular dysrhythmia was caused or exacerbated by hypokalemia/hypomagnesemia, agree with IV electrolyte replacement. Could add oral potassium/magnesium supplements as well, would also prescribe oral potassium/magnesium supplements to be taken in the future along with diuretics (if and when diuretics resume). No evidence of myocardial ischemia, cardiomyopathy, or any other acute or chronic cardiac issue which would likely predispose him to dysrhythmia. Telemetry is benign overnight and likely will remain benign upon the correction of his electrolyte abnormalities. Suspect his recent decline in exercise tolerance is related to his metabolic/electrolyte derangements. His leg pain seems to be either lumbar radiculopathy or hip arthritis related, excellent pulses and capillary refill way against peripheral arterial disease. Will continue to follow during his current hospitalization. History of Present Illness Reason for Consultation: CAMARA, 9beat run V tach Requesting Physician: Abad Vallejo MD Attending Physician: Abad Vallejo MD History of Present Illness 73-year-old man, resident of [facility], with no cardiac history who was admitted 09/19/2024 after presenting with with left leg pain who had a 9 beat run of ventricular tachycardia and recent decline in exercise tolerance. About 5 years ago he was hospitalized at [facility] for unclear reasons, subsequently he was placed on daily diuretics for leg edema, he denied any history of heart failure or other cardiac problems. He has noted some increased fatigue and decreased exercise tolerance in recent weeks or months, but he denies any orthopnea, PND, chest pain, subjective palpitations (other than a brief fluttering in the ER during his V. tach episode), recent weight gain, or any other potentially cardiac complaints other than chronic leg edema. No recent change in his diuretic dose or diet, he avoids added salt but is not on a sodium restricted diet. His leg edema is essentially resolved currently, his only complaint is chronic left leg discomfort. He had back surgery several years ago for sciatica. His current pain does occur at rest and has a positional component, radiates around the left hip toward the anterior medial aspect of his left thigh, worse with ambulation. Aside from his leg discomfort, no somatic complaints at the time of my evaluation. Telemetry overnight showed sinus rhythm with occasional sinus tachycardia (up to 140 bpm when he walked to the bathroom), no ventricular ectopy or ventricular tachycardia noted. Allergies Allergy/AdvReac Type Severity Reaction Status Date / Time No Known Allergies Allergy Verified 09/19/24 21:31 Home Medications Medication Instructions Recorded Confirmed Type atorvastatin 10 mg tablet 10 mg PO HS 01/24/19 09/19/24 History duloxetine 60 mg capsule,delayed 60 mg PO BID 01/24/19 09/19/24 History release glipizide 5 mg tablet 5 mg PO BID 01/24/19 09/19/24 History aspirin 81 mg chewable tablet 81 mg PO DAILY 09/19/24 09/19/24 History (Aspirin Childrens) bumetanide 1 mg tablet 1 mg PO DAILY 09/19/24 09/19/24 History diclofenac sodium 50 mg 50 mg PO DAILY 09/19/24 09/19/24 History tablet,delayed release insulin glargine-yfgn 100 unit/mL 32 unit subcut DAILY 09/19/24 09/19/24 History subcutaneous solution (Semglee (insulin glargine-yfgn)) metolazone 2.5 mg tablet 2.5 mg PO DAILY 09/19/24 09/19/24 History Patient History Medical History Osteoarthritis Diabetes mellitus, type 2 Abnormal EKG Peripheral neuropathy Atrial fibrillation A FIB EPISODE IN THE PAST Hypertension Hyperlipidemia Surgical History History of arthroscopy RT KNEE X 2 LEFT KNEE X 2 Broken jaw REPAIR Social History Smoking Status: Never smoker Hx Alcohol Use: No Hx Substance Use: No Preferred Language: Welsh Communication Ability: Effective Fieldwork Coordinator Required: No Beliefs That Will Affect Care: None Current Living Situation: Other Current Living Situation Comment: [facility] Feels Safe at Home: Yes Assistive Devices: None Physical Exam Physical Exam: No distress. Afebrile. BP normotensive. Pulse 98 bpm and regular without ectopy. Respirations 18 and unlabored. Skin: no ecchymoses or generalized lesions. HEENT: unremarkable. Neck: JVP at the clavicle at 90 degrees, no carotid bruits. Lungs: clear bilaterally. Cardiac: regular rhythm, normal S1-2, no murmur. Abdomen: benign. Extremities: Pigmentary stasis changes pretibial region, no current edema (skin is wrinkled, suggesting prior edema), brisk posterior tibial pulses, excellent pedal capillary refill (1 to 2 seconds). Neurologic: normal affect and conversation, nonfocal. Results & Data Vital Signs (Past 12 Hours) Vital Signs Temp Pulse Pulse Resp BP Pulse Ox O2 Del Method 09/20/24 08:00 Room Air 09/20/24 07:57 97.7 F 97 H 18 134/80 95 Room Air 09/20/24 07:00 103 H 09/20/24 04:16 98.2 F 103 H 18 144/84 H 94 Room Air Laboratory Results Hemoglobin 12.6 with normal white count platelet count. Initial potassium 3.0, 3.1 today, BUN 27, creatinine 1.04, initial magnesium 1.3 up to 1.6 today. Hemoglobin A1c 7.8%. Normal transaminases. BNP 25. Diagnostic Findings ECG showed sinus rhythm with first-degree AV block, left anterior fascicular block, minimal voltage for LVH, possible old anteroseptal infarct. No prior study available. Chest x-ray unremarkable. Chest CT with no pulmonary embolism or other significant pathology. Lower extremity venous Dopplers negative for DVT. Echocardiogram today showed hyperdynamic LV function (EF greater than 70%) with mild dynamic left ventricular outflow tract obstruction, decreased RV size, and diminished IVC diameter, all suggestive of volume depletion. PG Care Time/CCT Total # of Minutes Spent Total Time Spent with Patient: Total time spent is greater than 50% in coordination of care (as documented) at patient's floor/unit and/or counseling patient: Coding Level of Care Code 58770 IN/OBS CONSULT LVL 4,60M Diagnoses Nonsustained ventricular tachycardia I47.29 Venous (peripheral) insufficiency I87.2 Dyspnea on exertion R06.09 Hypokalemia E87.6 Hypomagnesemia E83.42 Left leg pain M79.605
--- NOTE | 2024-09-20 12:06 | XCELERA ---
[id number]
[2024-09-20] MEDS: ATORVASTATIN 10 MG TAB PO SCH (20:24)
[2024-09-21 06:23] LABS: Basophils # (auto) 0.03 K/uL (0.00-0.20); Basophils % (auto) 0.4 %; Eosinophils # (auto) 0.18 K/uL (0.00-0.50); Eosinophils % (auto) 2.1 %; Hematocrit (blood only) 36.4 % (42.0-52.0); Hemoglobin 12.1 g/dl (14.0-18.0); Immature Granulocytes # (auto) 0.02 K/uL (0.01-0.20); Immature Granulocytes % (auto) 0.2 %; Lymphocytes # (auto) 1.41 K/uL (1.20-3.40); Lymphocytes % (auto) 16.7 %; Mean Corpuscular Hemoglobin 28.5 pg (25.0-34.0); Mean Corpuscular Hgb Conc 33.2 g/dL (32.0-36.0); Mean Corpuscular Volume 85.6 fL (80.0-100.0); Mean Platelet Volume 11.1 fL (9.4-12.4); Monocytes # (auto) 0.85 K/uL (0.11-0.59); Monocytes % (auto) 10.1 %; Neutrophils # (auto) 5.96 K/uL (1.40-6.50); Neutrophils % (auto) 70.5 %; Platelet Count 250 K/uL (130-400); RDW Coefficient of Variation 14.4 % (11.5-14.5); RDW Standard Deviation 44.8 fL (36.4-46.3); Red Blood Count 4.25 M/uL (4.70-6.10); White Blood Count 8.45 K/ul (4.8-10.8)
[2024-09-21 06:45] LABS: Albumin Globulin Ratio 1.1 (0.9-2); Albumin Level 3.6 gm/dl (3.4-5.0); BUN Creatinine Ratio 24.2 (10-20); Bilirubin,Total 0.9 mg/dl (0.2-1.0); Calcium 9.1 mg/dl (8.6-10.3); Creatinine Clr Calc Pharmacy 59.4 ml/min; Globulin 3.3 gm/dl (2.5-4.0); Magnesium 1.7 mg/dl (1.7-2.4); Potassium 3.8 mmol/L (3.5-5.1); Total Protein 6.9 gm/dl (6.0-8.3)
[2024-09-21 07:41] VITALS: RESP 16; O2SAT 94
--- NOTE | 2024-09-21 10:12 | Cardiology Progress Note ---
Date of Service September 21, 2024 Assessment & Plan (1) Nonsustained ventricular tachycardia: (2) Venous (peripheral) insufficiency: (3) Dyspnea on exertion: (4) Hypokalemia: (5) Hypomagnesemia: (6) Left leg pain: Plan As noted in consultation, would have him remain off diuretics for now, if leg edema recurs could use occasional/PRN diuretic with concurrent potassium/magnesium supplement. Recommend low-sodium diet upon his return to halfway. Could explore venous ablation for his chronic venous insufficiency as a future outpatient procedure. His episodic sinus tachycardia may still be related to some degree of volume depletion, if so this should paola now that he is off diuretics. No further ventricular dysrhythmias. His leg pain seems to be either lumbar radiculopathy or hip arthritis related, excellent pulses and capillary refill weigh against peripheral arterial disease. Admission and Anticipated Discharge Date Admission Date: September 19, 2024 Subjective His only ongoing somatic implant is left leg pain. He did note brief tachypalpitations this morning, resolved without intervention. He denies chest pain, dyspnea, or orthostatic lightheadedness. His diuretic (bumetanide) was discontinued as of this morning (last dose yesterday). Telemetry showed only sinus rhythm, with occasional PVCs and brief episodes of sinus tachycardia (up to 130 bpm). No ventricular dysrhythmias subsequent to the single 9 beat run of ventricular tachycardia in the ER 2 days ago. Physical Exam Physical Exam: No distress. Afebrile. BP normotensive. Pulse 105 bpm and regular without ectopy. Respirations 16 and unlabored. Skin: no ecchymoses or generalized lesions. HEENT: unremarkable. Neck: JVP at the clavicle at 90 degrees, no carotid bruits. Lungs: clear bilaterally. Cardiac: regular rhythm, normal S1-2, no murmur. Abdomen: benign. Extremities: Pigmentary stasis changes pretibial region, no current edema (skin is wrinkled, suggesting prior edema), brisk posterior tibial pulses, excellent pedal capillary refill (1 to 2 seconds). Neurologic: normal affect and conversation, nonfocal. Results & Data Vital Signs (Past 12 Hours) Vital Signs Temp Pulse Pulse Resp BP Pulse Ox O2 Del Method 09/21/24 08:00 Room Air 09/21/24 07:40 98.4 F 105 H 16 134/81 94 Room Air 12/08/24 07:00 98 H 09/21/24 03:45 97.7 F 96 H 18 107/64 93 Room Air 09/21/24 03:30 Room Air 09/21/24 03:30 90 09/20/24 23:35 97.9 F 94 H 16 108/64 97 Room Air PG Care Time/CCT Total # of Minutes Spent Total Time Spent with Patient: Total time spent is greater than 50% in coordination of care (as documented) at patient's floor/unit and/or counseling patient: Coding Level of Care Code 56223 SUB INP/OBS CARE 2/35MIN Diagnoses Nonsustained ventricular tachycardia I47.29 Venous (peripheral) insufficiency I87.2 Dyspnea on exertion R06.09 Hypokalemia E87.6 Hypomagnesemia E83.42 Left leg pain M79.605
[2024-09-21 10:58] VITALS: TEMP 98.2
[2024-09-21 11:11] VITALS: BP 134/67; PULSE 91
--- NOTE | 2024-09-21 11:33 | Discharge Summary ---
Discharge Summary Date of Service September 21, 2024 Principal Dx & Hospital Course #1 = Principal Diagnosis (1) Dyspnea on exertion: Presented with LLE pain and CAMARA x 1 week - CXR unremarkable, CTA negative for PE, venous Doppler negative for DVT - Troponin negative - No history of SC, CHF but significant PVD - History of afib - pt states this is paroxysmal, not on anticoagulation - Had 9 beat run of Vtach in ED - suspect secondary to electrolyte derangements - Hypokalemia and hypomagnesemia repleted and augmented appropriately - EKG shows NSR with 1st degree AV block - Reviewed telemetry -- NSR in 90s - Echo with bubble study: EF>70%, no interarterial shunt, hyperdynamic LV with mild dynamic LV outflow tract obstruction - Cardiology consulted, appreciate recommendations > Recommend discontinuing diuretics and using compression stockings. Allow some mild progressive lower extremity edema to avoid volume depletion electrolyte derangement > Use PRN diuretic for abrupt weight gain, with concurrent oral K and mag supplements to be taken with diuretic (2) Left leg pain: Has chronic leg pain/arthritis but says this is different from baseline - Venous Doppler negative for DVT - CK normal - Patient on Bumex and metolazone - cardiology recommends DISCONTINUING diuretics in setting of euvolemia to mild hypovolemia - Suspect lumbar radiculopathy or hip arthritis related - Recommend following up with spine surgeon for ongoing symptoms - Use Tylenol or ibuprofen as needed - Consider venous ablation for chronic venous insufficiency outpatient (3) Diabetes mellitus, type 2: Hold home glipizide while inpatient Glargine 18U BID SSI, adjust as needed A1c 7.8% Resume home regimen on discharge (4) Hypertension: Not currently on medication besides diuretics Blood pressures stable Plan Chronic stable issues: Hyperlipidemia: Continue atorvastatin Peripheral neuropathy/arthritis: Continue duloxetine and diclofenac, Cr acceptable VTE PPx: Lovenox CODE STATUS: Full code Notes For Next Care Provider Medication Changes From Visit Discontinue daily diuretics Use PRN diuretic for abrupt weight gain with concurrent potassium and magnesium oral supplementation Tylenol or ibuprofen as needed for leg pain Admission HPI Per Admitting Provider 73 yo male PMHx cardiomegaly, T2DM on insulin, HLD, HTN, PVD, venous insufficiency, osteoarthritis, neuropathy who was in his usual state of health until one week ago is admitted with LLE pain and CAMARA. Over the last week the patient states that he has had progressive LLE pain, primarily in the thigh that he describes as "lactic acid buildup" and cramping. He is able to ambulate normally. He has also noted that he has had increasing CAMARA with ambulation of distances of 30-40 feet. He denies chest pain during these episodes, he states that he just becomes "winded." At the time of our encounter he denies CP, SOB, abdominal pain, nausea, vomiting, lightheadedness, dizziness, and diarrhea. ED course: Labs revealed low sodium and mag - these were repleted CTA performed was negative for acute PE LE dopplers were performed - no acute DVT present Discharge Exam General: No acute distress, nondiaphoretic, well-developed, well-nourished. Skin: Venous stasis discoloration L>R in lower extremities bilaterally. No edema noted. Cardiac: Regular rate and rhythm without murmurs gallops or rubs. Pulm: Clear to auscultation bilaterally without wheezes, rales or rhonchi. No respiratory distress. 94% on room air. Abdominal: Soft, nontender, nondistended. Bowel sounds present. Neuro: A&O x3. No focal neurological deficits. Discharge Plan Discharge Items [facility] Reason For Visit: LLE PAIN, DYSPNEA ON EXERTION Discharge Diagnosis: Dyspnea on exertion, electrolyte derangements now replete, left leg pain Activity: Resume your previous activity Non-emergency contact: Primary Care Provider Call non-emergency contact if: you have any medication questions and your symptoms worsen Follow-up/Referrals: SCI,Ricardo [Primary Care Provider] - Diet: Carb Consistent or DM2, Heart Healthy and Low Sodium (2gm) Addtl Attending Provider Instructions: FOR SCI RICARDO: CXR unremarkable, CTA negative for PE, venous Doppler negative for DVT, troponin negative, CK normal. Echo showed EF > 70%, no interarterial shunt, hyperdynamic LV with mild dynamic LV outflow track obstruction. Hypokalemia and hypomagnesemia repleted and augmented appropriately. Recommend discontinuing scheduled diuretics and using compression stockings. Allow some mild progressive lower extremity edema to avoid volume depletion electrolyte derangement. Use as needed diuretic for abrupt weight gain. Provide potassium and magnesium supplementation with diuretic. Recommend low-sodium diet. Use Tylenol 650 mg Q6H PRN or ibuprofen 600 mg Q8H PRN for leg pain. Recommend follow-up with spine surgeon to reevaluate ongoing lumbar radiculopathy. Consider venous ablation for chronic venous insufficiency outpatient. Pending Studies at Discharge: No Stand-Alone Forms: My [facility] Skilled Items Patient informed of condition?: Yes Discharge Level of Care: Other Communicable Disease: No Discharge Prognosis: Stable Lines: None Urinary Catheter: No Medications and DC Order Prescriptions: New bumetanide 1 mg tablet 1 mg PO DAILY PRN (Reason: edema) Qty: 30 0RF potassium chloride 20 mEq tablet extended release 20 meq PO UD Qty: 30 0RF Rx Instructions: Give concurrently with diuretic magnesium 200 mg tablet 200 mg PO UD Qty: 30 0RF Rx Instructions: Give concurrently with diuretic acetaminophen 650 mg tablet extended release 650 mg PO Q6H PRN (Reason: pain) Qty: 30 0RF ibuprofen 600 mg tablet 600 mg PO Q8H PRN (Reason: pain) Qty: 30 0RF Continued atorvastatin 10 mg Tablet 10 mg PO HS glipizide 5 mg Tablet 5 mg PO BID duloxetine 60 mg Capsule,Delayed Release(Dr/Ec) 60 mg PO BID aspirin [Aspirin Childrens] 81 mg Tablet,Chewable 81 mg PO DAILY insulin glargine-yfgn [Semglee(insulin glargine-yfgn)] 100 unit/mL Solution 32 unit SUBCUT DAILY diclofenac sodium 50 mg Tablet,Delayed Release (Dr/Ec) 50 mg PO DAILY Discontinued metolazone 2.5 mg Tablet 2.5 mg PO DAILY bumetanide 1 mg Tablet 1 mg PO DAILY Discharge Orders: Discharge Order (Routine); Ordered 09/21/24 Ordered By: Kristie Harper/Other Patient Handouts: Managing Type 2 Diabetes, CAD, Medicine for Pain, ED Leg Swelling in Both Legs Admission Data Admit Date/Time: 09/19/24 21:50 Attending Provider: Abad Vallejo Admit Provider: Taran Berg Primary Care Provider: Ricardo LEVINE Other Providers: Suzanne Dunn; Pan Keller Other Interventions: Discharge Summary Assessment (RN) Last Done: 09/21/24 11:08 Hospital Stay Data Consultations 09/19/24 20:57 ED Decision to Admit Stat 09/19/24 23:23 Consult Cardiology Routine Diagnostic Imagining Performed Chest X-Ray 09/19/24 16:17 EXAM: Radiograph of the Chest 1 View INDICATION: Dyspnea. TECHNIQUE: Frontal view of the chest. COMPARISON: No relevant prior studies available. FINDINGS: Lungs and pleural spaces: Shallow inspiration with minimal atelectasis in the right lung base. No consolidation or pulmonary edema. No pleural effusion or pneumothorax. Heart: Shape and configuration within normal limits allowing for technique. Mediastinum: Normal contour. Bones/joints: No fracture, erosion or dislocation. Soft tissues: No abnormality noted. No radiopaque foreign body noted. Upper abdomen: No abnormality noted. IMPRESSION: No acute cardiopulmonary disease. ACT 112: Negative or not required by law. Electronically signed by Anay Lawrence 09-19-2024 4:41 PM Venous Doppler Study 09/19/24 17:07 Exam(s): US VENOUS BILATERAL LOWER EXTREMITIES EXAM: US Duplex Bilateral Lower Extremities Veins CLINICAL HISTORY: Reason for exam: ro dvt. TECHNIQUE: Real-time duplex ultrasound scan of the bilateral lower extremity veins integrating B-mode two-dimensional vascular structure, Doppler spectral analysis, color flow Doppler imaging and compression. COMPARISON: No relevant prior studies available. FINDINGS: Right deep veins: Unremarkable. No DVT in the right common femoral, femoral, proximal deep femoral or popliteal veins. The veins demonstrate normal color flow, are normally compressible, with normal phasic flow and/or augmentation response. Right superficial veins: Unremarkable. No thrombus in the visualized right great saphenous vein. Left deep veins: Unremarkable. No DVT in the left common femoral, femoral, proximal deep femoral or popliteal veins. The veins demonstrate normal color flow, are normally compressible, with normal phasic flow and/or augmentation response. Left superficial veins: Unremarkable. No thrombus in the visualized left great saphenous vein. Soft tissues: No acute abnormality. No popliteal cyst. IMPRESSION: No evidence of deep venous thrombosis. Electronically signed by: Saeed Polo M.D. 09/19/24 22:16 PM Chest CTA 09/19/24 18:17 EXAM: CT Angiography Chest With Intravenous Contrast INDICATION: Increased shortness of breath. History of DVT. TECHNIQUE: Axial computed tomographic angiography images of the chest with intravenous contrast. Sagittal and coronal reformatted images were created and reviewed. This CT exam was performed using one or more of the following dose reduction techniques: automated exposure control, adjustment of the mA and/or kV according to patient size, and/or use of iterative reconstruction technique. MIP reconstructed images were created and reviewed. CONTRAST: 118ml of Optiray 320 was administered intravenously. COMPARISON: No relevant prior studies available. FINDINGS: Pulmonary arteries: No abnormality noted. No pulmonary embolism. Aorta: No acute change noted. No thoracic aortic aneurysm or dissection. Great vessels of aortic arch: Normal variant aberrant right subclavian artery. Lungs and pleural spaces: There is mild lower lobe airway thickening and central peribronchial groundglass opacity. There is linear atelectasis in the right middle lobe. No significant effusion. Heart: No abnormality noted. No cardiomegaly. No significant pericardial effusion. No evidence of RV dysfunction. Bones/joints: Degenerative changes noted throughout the spine. No acute osseous abnormality seen. Soft tissues: No abnormality noted. Lymph nodes: No abnormality noted. No enlarged lymph nodes. Kidneys and ureters: Small hypodense nodule right kidney likely a cyst. No further assessment required. IMPRESSION: No pulmonary embolus or aortic dissection. ACT 112: Negative or not required by law. Electronically signed by Anay Lawrence 09-19-2024 7:09 PM Pending Results Patient Have Any Pending Studies at Discharge: No Discharge Instructions Given to Patient (Per Discharging Provider) FOR SCI RICARDO: CXR unremarkable, CTA negative for PE, venous Doppler negative for DVT, troponin negative, CK normal. Echo showed EF > 70%, no interarterial shunt, hyperdynamic LV with mild dynamic LV outflow track obstruction. Hypokalemia and hypomagnesemia repleted and augmented appropriately. Recommend discontinuing scheduled diuretics and using compression stockings. Allow some mild progressive lower extremity edema to avoid volume depletion electrolyte derangement. Use as needed diuretic for abrupt weight gain. Provide potassium and magnesium supplementation with diuretic. Recommend low-sodium diet. Use Tylenol 650 mg Q6H PRN or ibuprofen 600 mg Q8H PRN for leg pain. Recommend follow-up with spine surgeon to reevaluate ongoing lumbar radiculopathy. Consider venous ablation for chronic venous insufficiency outpatient. Total Time Total Time Spent Total Time Spent (In Minutes): Greater than 30 minutes spent completing this discharge process including direct patient care, medication reconciliation, documentation, review of labs and images, and coordination of care. Coding Level of Care Code 07440 INP/OBS DISCH >30 MIN Diagnoses Dyspnea on exertion R06.09 Left leg pain M79.605 Type 2 diabetes mellitus with diabetic polyneuropathy, with long-term current use of insulin E11.42; Z79.4 Diabetes mellitus mcfp insulin use: with mcfp use Diabetes mellitus complication status: with neurologic complications Diabetes mellitus complication detail: with polyneuropathy Primary hypertension I10 Hypertension type: primary hypertension
--- NOTE | 2024-09-22 10:16 | Electrocardiogram Report ---
Test Reason : Blood Pressure : */* mmHG Vent. Rate : 90 BPM Atrial Rate : 90 BPM P-R Int : 226 ms QRS Dur : 86 ms QT Int : 384 ms P-R-T Axes : 43 -36 41 degrees QTcB Int : 469 ms Sinus rhythm with 1st degree A-V block Left axis deviation Possible Old Anteroseptal infarct (cited on or before 19-Sep-2024) Abnormal ECG When compared with ECG of 19-Sep-2024 16:42, No significant change Confirmed by Pan Keller ([id number]) on 09/22/2024 10:16:17 AM Referred By: Inessa SCI Confirmed By: Pan Keller
== END 2024-09-21 13:30 | DRG 310 ==
LOC: ED 15:19 → 2W 21:50 → SUATTDRO 21:50 → 2W 22:22

== ENCOUNTER 2025-02-06 10:14 | Inpatient (IN) ==
--- NOTE | 2025-02-06 11:06 | Emergency Department Note ---
Impression & Plan Cellulitis, Leukocytosis ED Provider Note NAME: BRANDAN [id number] DORA AGE: 74 SEX: M : 1950 ARRIVES VIA: Walk-In INFORMANT: [Patient] ED PROVIDER(S): [Andrea Loera MD] CHIEF COMPLAINT: Infection HISTORY OF PRESENT ILLNESS: The patient is a 74-year-old male with diabetes. He states that today, he took off his compression stocking on the left leg and saw erythema, warmth and increased swelling. He was seen by the medical staff at the [facility] and sent to the hospital for evaluation. The patient does have some leg pain, there is some increased leg swelling, he has not had fever. No cough or congestion, no vomiting or diarrhea, no chest pain. PMHx/PSHx/Social Hx: See Below PHYSICAL EXAM: GENERAL: Patient is in no acute distress. HEENT: No acute trauma, normocephalic atraumatic, mucous membranes moist, no nasal congestion. NECK: No stridor, no adenopathy, no meningismus, trachea is midline. LUNGS: Clear to auscultation bilaterally, no wheeze, no rhonchi, breath sounds equal. HEART: Without murmurs gallops or rubs, regular rate and rhythm. ABDOMEN: Soft, nontender, no peritonitis. EXTREMITIES: No cyanosis. Patient has significant left-sided lower extremity edema. There is erythema from the toes to just above the knee, there is erythema extending up the medial aspect of the left thigh. No drainage. NEUROLOGIC: Oriented x 3, no acute motor or sensory deficits, no focal weakness. SKIN: No jaundice, no diaphoresis. DIFFERENTIAL DIAGNOSIS: Cellulitis, DVT, electrolyte imbalance, anemia, among others. EMERGENCY DEPARTMENT PROCEDURES: MEDICAL DECISION MAKING: There is a significant leukocytosis at 22,000, this would be consistent with infection. A very subtle anemia was seen. No issue with the platelet count. A bandemia was present on the CBC differential. No coagulopathy. No renal failure or significant electrolyte abnormality. Lactic acid level was not elevated making severe sepsis less likely. Left leg ultrasound did not show findings of DVT. Procalcitonin level was elevated consistent with a bacterial source for his infection. MRSA nasal screen was negative. On exam, the patient did have a cellulitis of the left lower extremity with some streaking up to his left groin. He was not febrile or toxic. The patient was given IV vancomycin, he received IV Zosyn. The patient has cellulitis and is going to require hospitalization and IV antibiotic therapy. I spoke with the patient and the fdc staff, the on-call hospitalist was consulted. Case management has been involved Prior/Outside records/notes reviewed: Outpatient fdc notes describing his presentation, their concerns and the need for hospital evaluation. Imaging/x-ray results per my interpretation: Chronic Medical/Social conditions affecting care: Currently incarcerated. Care/Management discussed with: Case management, the on-call hospitalist. Level of care consideration(s): After review of the information above and other included data: --I believe the patient requires escalation of care to admission DISPOSITION: Admission Past Med/Surg History Problem List (Updated 02/06/25 @ 17:09 by Andrea Loera MD) Leukocytosis (Acute) Cellulitis (Acute) Left leg cellulitis Nonsustained ventricular tachycardia Leg edema Venous (peripheral) insufficiency Left leg pain Dyspnea on exertion Medical History Hypomagnesemia Hypokalemia Osteoarthritis Diabetes mellitus, type 2 Abnormal EKG Peripheral neuropathy Atrial fibrillation A FIB EPISODE IN THE PAST Hypertension Hyperlipidemia Surgical History History of arthroscopy RT KNEE X 2 LEFT KNEE X 2 Broken jaw REPAIR Social History Smoking Status: Former smoker Hx Alcohol Use: No Hx Substance Use: No Preferred Language: Azerbaijani Communication Ability: Effective Portable Canteen Operator Required: No Beliefs That Will Affect Care: None Current Living Situation: Other Current Living Situation Comment: [facility] Feels Safe at Home: Yes Assistive Devices: None Allergies Allergies Allergy/AdvReac Type Severity Reaction Status Date / Time No Known Allergies Allergy Verified 02/06/25 15:02 Home Meds Home Medications Medication Instructions Recorded Confirmed atorvastatin 10 mg tablet 10 mg PO HS 01/24/19 02/06/25 duloxetine 60 mg capsule,delayed 60 mg PO BID 01/24/19 02/06/25 release glipizide 5 mg tablet 5 mg PO BID 01/24/19 02/06/25 aspirin 81 mg chewable tablet 81 mg PO DAILY 09/19/24 02/06/25 (Aspirin Childrens) diclofenac sodium 50 mg 50 mg PO DAILY 09/19/24 02/06/25 tablet,delayed release insulin glargine-yfgn 100 unit/mL 32 unit subcut DAILY 09/19/24 02/06/25 subcutaneous solution (Semglee (insulin glargine-yfgn)) ferrous sulfate 324 mg (65 mg 324 mg PO Q OTHER DAY 02/06/25 02/06/25 iron) tablet,delayed release insulin regular human 100 unit/mL 1 sliding scale dose subcut 02/06/25 02/06/25 injection solution (Novolin R USEASDIRECTD Regular U-100 Insulin) Results & Data (ED) Vital Signs Vital Signs - 24 hr 02/06/25 10:27 02/06/25 11:30 02/06/25 11:43 Temperature 37.0 C Temperature Source Temporal Artery Scan Pulse Rate 108 H 100 H 100 H Respiratory Rate 18 28 H Respiratory Effort / Characteristics Non-Labored Spontaneous Respiratory Depth Normal Respiratory Pattern Regular Blood Pressure 127/76 153/87 H Blood Pressure Mean 93 99 Pulse Oximetry 100 97 Oxygen Delivery Method Room Air Sepsis Recent Fever Within 48 Hours No Sepsis New/Unexplained Change in Mental Status N/A Sepsis Action Taken by Nursing No Action Required Home Medications Current Medication List: was personally reviewed by me Laboratory Data Attestation: I reviewed the patient's lab results. 02/06/25 11:08 02/06/25 11:53 Lab Results 02/06/25 02/06/25 02/06/25 Range/Units 11:08 11:47 11:53 WBC 22.89 H (4.8-10.8) K/ul RBC 4.97 (4.70-6.10) M/uL Hgb 13.8 L (14.0-18.0) g/dl Hct 40.8 L (42.0-52.0) % MCV 82.1 (80.0-100.0) fL MCH 27.8 (25.0-34.0) pg MCHC 33.8 (32.0-36.0) g/dL RDW Std Deviation 46.0 (36.4-46.3) fL RDW Coeff of Joselin 15.4 H (11.5-14.5) % Plt Count 199 (130-400) K/uL MPV 11.0 (9.4-12.4) fL Immature Gran % (Auto) 1.0 % Neut % (Auto) 89.1 % Lymph % (Auto) 2.4 % Cloud % (Auto) 7.0 % Eos % (Auto) 0.2 % Baso % (Auto) 0.3 % Neut # (Auto) 20.39 H (1.40-6.50) K/uL Lymph # (Auto) 0.54 L (1.20-3.40) K/uL Cloud # (Auto) 1.61 H (0.11-0.59) K/uL Eos # (Auto) 0.05 (0.00-0.50) K/uL Baso # (Auto) 0.07 (0.00-0.20) K/uL Immature Gran # (Auto) 0.23 H (0.01-0.20) K/uL PT Cancelled 11.4 INR Cancelled 1.1 APTT Cancelled 36 H PTT Ratio Cancelled 1.3 Sodium TNP 133 L Potassium TNP 3.8 Chloride 98 (98-107) mmol/L Carbon Dioxide 29 (21-32) mmol/L Anion Gap TNP BUN 24 H (6-23) mg/dl Creatinine 1.15 (0.6-1.4) mg/dl Est Cr Clr Drug Dosing 68.8 ml/min eGFR 67.20 BUN/Creatinine Ratio 20.9 H (10-20) Glucose 156 H (70-99(Fasting)) mg/dl Lactate 2.0 (0.4-2.0) mmol/L Calcium 9.1 (8.6-10.3) mg/dl Magnesium TNP 1.8 Total Bilirubin 1.3 H (0.2-1.0) mg/dl AST TNP 41 H ALT 48 (7-52) U/L Alkaline Phosphatase 89 (34-104) U/L Total Protein 7.6 (6.0-8.3) gm/dl Albumin 3.7 (3.4-5.0) gm/dl Globulin 3.9 (2.5-4.0) gm/dl Albumin/Globulin Ratio 0.9 (0.9-2) Procalcitonin Cancelled 1.69 H Nasal Screen MRSA (PCR) Negative (Negative) Administered Medications Sodium Chloride (Nss) 1,000 mls @ 80 mls/hr IV .[id number] [facility] Stop: 02/07/25 01:19 Last Admin: 02/06/25 14:39 Dose: 80 mls/hr Documented By: JUANA Piperacillin Sod/Tazobactam Sod (Zosyn) 4.5 gm in 100 mls @ 25 mls/hr IV Q8H [facility]; Protocol Stop: 02/13/25 16:29 Last Admin: 02/06/25 16:27 Dose: 25 mls/hr Documented By: JUANA Discontinued Medications Piperacillin Sod/Tazobactam Sod (Zosyn) 4.5 gm in 100 mls @ 200 mls/hr IV NOW ONE Stop: 02/06/25 11:13 Last Infusion: 02/06/25 11:59 Dose: Infused Documented By: Admin: 02/06/25 11:21 Dose: 200 mls/hr Documented By: JUANA Vancomycin HCl 2,500 mg/ (Sodium Chloride) 550 mls @ 200 mls/hr IV NOW ONE Stop: 02/06/25 14:27 Last Infusion: 02/06/25 16:27 Dose: Infused Documented By: Admin: 02/06/25 13:12 Dose: 200 mls/hr Documented By: Imaging Data Radiologist's Impression: Venous Doppler Study 02/06/25 10:45 LEFT LOWER EXTREMITY VENOUS DOPPLER CLINICAL HISTORY: Left lower extremity pain and swelling. COMPARISON STUDY: Bilateral lower extremity venous Doppler ultrasound September 19, 2024. TECHNIQUE: Sonography of the deep venous system of the left lower extremity was performed. Compression and augmentation were evaluated. FINDINGS: The left common femoral, superficial femoral and popliteal veins were compressible. Augmentation was normal. Flow was shown within the deep calf vessels. Prominent left inguinal lymph node contains a fatty hilum and is elongated. This is likely benign. Left calf edema is noted. IMPRESSION: 1. No evidence of deep venous thrombus within the left lower extremity. 2. Left calf edema. ACT 112: Negative or not required by law. Electronically signed by: Honorio Santa M.D. 02/06/2025 1:22 PM Discharge Plan Visit Data Chief Complaint: Infection Stated Complaint: EDEMA, REDNESS, WARM TO TOUCH AND PAIN IN LT LEG ED Provider: Andrea Loera Discharge Problem: Cellulitis, Leukocytosis Patient Disposition: Admitted As Inpatient Condition: Fair Discharge Instructions Interventions: ED Discharge Assessment Last Done: 02/06/25 14:30 Discharge Problem: Cellulitis Qualifiers: Site of cellulitis: extremity Site of cellulitis of extremity: lower extremity Laterality: left Qualified Code(s): L03.116 - Cellulitis of left lower limb Leukocytosis Qualifiers: Leukocytosis type: unspecified Qualified Code(s): D72.829 - Elevated white blood cell count, unspecified
[2025-02-06] MEDS: PIPERACILLIN/TAZOBACTAM 4.5 GM/100 ML BAG IV ONE (11:21)
[2025-02-06 11:30] LABS: Hematocrit (blood only) 40.8 % (42.0-52.0); Hemoglobin 13.8 g/dl (14.0-18.0); Mean Corpuscular Hemoglobin 27.8 pg (25.0-34.0); Mean Corpuscular Hgb Conc 33.8 g/dL (32.0-36.0); Mean Corpuscular Volume 82.1 fL (80.0-100.0); Platelet Count 199 K/uL (130-400); RDW Coefficient of Variation 15.4 % (11.5-14.5); Red Blood Count 4.97 M/uL (4.70-6.10); White Blood Count 22.89 K/ul (4.8-10.8)
[2025-02-06] MEDS ORDERED: VANCOMYCIN CONSULT ACTIVE PRN (11:43)
[2025-02-06 11:46] LABS: Basophils # (auto) 0.07 K/uL (0.00-0.20); Basophils % (auto) 0.3 %; Eosinophils # (auto) 0.05 K/uL (0.00-0.50); Eosinophils % (auto) 0.2 %; Immature Granulocytes # (auto) 0.23 K/uL (0.01-0.20); Lymphocytes # (auto) 0.54 K/uL (1.20-3.40); Lymphocytes % (auto) 2.4 %; Monocytes # (auto) 1.61 K/uL (0.11-0.59); Neutrophils # (auto) 20.39 K/uL (1.40-6.50); Neutrophils % (auto) 89.1 %
[2025-02-06 11:55] LABS: Alanine Aminotransferase 48 U/L (7-52); Albumin Globulin Ratio 0.9 (0.9-2); Albumin Level 3.7 gm/dl (3.4-5.0); Alkaline Phosphatase 89 U/L (34-104); BUN Creatinine Ratio 20.9 (10-20); Bilirubin,Total 1.3 mg/dl (0.2-1.0); Blood Urea Nitrogen 24 mg/dl (6-23); Calcium 9.1 mg/dl (8.6-10.3); Carbon Dioxide 29 mmol/L (21-32); Chloride 98 mmol/L (98-107); Creatinine Clr Calc Pharmacy 68.8 ml/min; Globulin 3.9 gm/dl (2.5-4.0); Glucose 156 mg/dl (70-99(Fasting)); Total Protein 7.6 gm/dl (6.0-8.3)
[2025-02-06] MEDS ORDERED: POLYETHYLENE (MIRALAX) 17 GM PACK PO PRN (12:26)
[2025-02-06 12:36] LABS: INR 1.1 (0.9-1.1); Partial Thromboplastin Ratio 1.3; Partial Thromboplastin Time 36 Seconds (21-31); Prothrombin Time 11.4 Seconds (9.0-12.0)
[2025-02-06 12:38] LABS: Magnesium 1.8 mg/dl (1.7-2.4); Potassium 3.8 mmol/L (3.5-5.1)
--- NOTE | 2025-02-06 12:44 | History & Physical Report ---
Date of Service February 06, 2025 Assessment & Plan (1) Left leg cellulitis: (2) Diabetes mellitus, type 2: (3) Hyperlipidemia: Plan This is a 74 year old gentleman with past medical history of Type 2 diabetes, lower extremity edema who presented to the emergency department from [facility] on 02/06/2025 with left lower extremity cellulitis. While in the emergency department he was found to have leukocytosis with a WBC of 22.89. His sodium was mildly low at 133, creatinine WNL. His total bilirubin was mildly elevated at 1.3, AST mildly elevated at 41. Procalcitonin elevated at 1.69. MRSA screen was pending. Blood cultures were obtained and pending. Left lower extremity DVT ordered and pending. He was given Vancomycin and Zosyn in the ED. #Left leg cellulitis Left leg w/ erythema & edema. Warm to touch. streaking up interior leg up to groin region. CBC w/ WBC of 22.89, Procal elevated at 1.69 BC pending, LLE US pending. s/p Vancomycin & Zosyn in ED MRSA screen pending Continue Vanco & Zosyn upon admission. AM CBC, BMP, Procal #Type 2 DM Outpatient regimen: Glipizide BID, Glargine 32 units daily. Hold Glipizide while inpatient SSI coverage, adjust as needed Consult pharmacy to aide with glycemic management. A1c 7.8 in 09/2024, update in AM Chronic conditions: Mental health: Duloxetine HLD: statin Code: full DVT prophylaxis: pending LLE US results Case discussed w/ Dr. Cook at time of admission. History of Present Illness [facility] a 74 year [facility] gentleman with past medical history of Type 2 diabetes, lower extremity edema who presented to the emergency department from [facility] on 02/06/2025 with left lower extremity cellulitis. The patient was seen and examined. Shelter guards present. He states that this morning he took his compression stocking off and noticed that his left lower leg was severely swollen and red. He also states that it was painful and tender to touch. He went to the [facility] at the present and the nurse had recommended that he report to the ER for further evaluation. He states that about 6 to 7 m onths ago he had a similar issue with his left lower leg and was treated for course of cellulitis. Prior to this he had been doing well. He denies any fevers or chills recently. He states that he does have lower extremity edema baseline but his left leg is more swollen than usual. He denies any nausea, vomiting, chest pain, shortness of breath, changes in bowel habits. He denies any urinary complaints. While in the emergency department he was found to have leukocytosis with a WBC of 22.89. His sodium was mildly low at 133, creatinine WNL. His total bilirubin was mildly elevated at 1.3, AST mildly elevated at 41. Procalcitonin elevated at 1.69. MRSA screen was pending. Blood cultures were obtained and pending. Left lower extremity DVT ordered and pending. He was given Vancomycin and Zosyn in the ED. Allergies Allergy/AdvReac Type Severity Reaction Status Date / Time No Known Allergies Allergy Verified 09/19/24 21:31 Home Medications Medication Instructions Recorded Confirmed Type atorvastatin 10 mg tablet 10 mg PO HS 01/24/19 09/19/24 History duloxetine 60 mg capsule,delayed 60 mg PO BID 01/24/19 09/19/24 History release glipizide 5 mg tablet 5 mg PO BID 01/24/19 09/19/24 History aspirin 81 mg chewable tablet 81 mg PO DAILY 09/19/24 09/19/24 History (Aspirin Childrens) diclofenac sodium 50 mg 50 mg PO DAILY 09/19/24 09/19/24 History tablet,delayed release insulin glargine-yfgn 100 unit/mL 32 unit subcut DAILY 09/19/24 09/19/24 History subcutaneous solution (Semglee (insulin glargine-yfgn)) acetaminophen 650 mg 650 mg PO Q6H PRN pain #30 tabs 09/21/24 Rx tablet,extended release bumetanide 1 mg tablet 1 mg PO DAILY PRN edema #30 tabs 09/21/24 Rx ibuprofen 600 mg tablet 600 mg PO Q8H PRN pain #30 tabs 09/21/24 Rx magnesium 200 mg tablet 200 mg PO UD #30 tabs 09/21/24 Rx potassium chloride 20 mEq 20 meq PO UD #30 tabs 09/21/24 Rx tablet,extended release Past Med/Surg History Problem List (Updated 02/06/25 @ 12:57 by Natalee Eugene PA-C) Left leg cellulitis Nonsustained ventricular tachycardia Leg edema Venous (peripheral) insufficiency Left leg pain Dyspnea on exertion Medical History Osteoarthritis Diabetes mellitus, type 2 Abnormal EKG Peripheral neuropathy Atrial fibrillation A FIB EPISODE IN THE PAST Hypertension Hyperlipidemia Surgical History History of arthroscopy RT KNEE X 2 LEFT KNEE X 2 Broken jaw REPAIR Social History Smoking Status: Never smoker Hx Alcohol Use: No Hx Substance Use: No Preferred Language: Vincentian Communication Ability: Effective Union Laborer Required: No Beliefs That Will Affect Care: None Current Living Situation: Other Current Living Situation Comment: [facility] Feels Safe at Home: Yes Assistive Devices: None Physical Exam Constitutional: WD/WN, vitals as above Eyes: PERRL, conjunctivae normal, anicteric sclerae ENMT: external ear and nose normal, oropharynx normal Respiratory: normal respiratory effort, lungs clear to auscultation Cardiovascular: RRR, no murmur, no edema Gastrointestinal (Abdomen): normal bowel sounds, soft, nontender, no hepatosplenomegaly Skin: +erythema, warmth, edema to LLE. Erythem a streaking on interior of leg up to groin. No erythema noted in region/abdomen. Neurologic: PERRL, EOMI, accommodation nl, no face palsy, no dysarthria Psychiatric: A+Ox3, euthymic affect Results & Data Results & Data Vital Signs (Past 12 Hours) Vital Signs Temp Pulse Resp BP Pulse Ox O2 Del Method 02/06/25 11:43 100 H 02/06/25 10:27 37.0 C 108 H 18 127/76 100 Room Air Supervising Physician Co-Signing Physician Notes I have personally seen, evaluated and examined the patient. I have also personally discussed the management of the patient with the resident physician/PRITI and I agree with the exam findings documented in the history and physical examination and the documented assessment and plan unless otherwise stated below. Brief Exam: In general very pleasant 74-year-old male was alert oriented x 3 at time of exam. His only complaint is his left leg pain. He is accompanied by 2 armed guards at the time my evaluation. HEENT: Normocephalic atraumatic. Heart: Regular rate and rhythm I do not appreciate a murmur ectopy or rub. Lungs: Clear bilaterally. Abdomen: Soft nontender with positive bowel sounds no pressure organomegaly. Extremities: Intact no clubbing cyanosis or edema with the exception of the left lower extremity. He has profound edema and erythema of the left lower extremity extending from the toes up to his groin area. Is tender to the touch is warm to the touch. But neurovascularly the extremities intact. Neurologically: Alert and oriented x 3 with no focal deficit on exam very pleasant to interact with. Assessment/plan: As described above. Will continue the vancomycin and Zosyn currently for broad-spectrum coverage of both MRSA and Pseudomonas given his diabetes mellitus and the extent of the cellulitis. Ultrasound of the lower extremities pending at the time of this dictation to rule out DVT. Certainly if positive will anticoagulate the patient. Blood cultures have been obtained. We do feel this patient will need at least 2 to 3 days of IV antibiotics prior to converting to oral antibiotics given the extent and degree of his cellulitis. Please refer to orders for further planning. PG Care Time/CCT Total # of Minutes Spent Total Time Spent with Patient: Total time spent is greater than 50% in coordination of care (as documented) at patient's floor/unit and/or counseling patient: Coding Level of Care Code 18876 INT INP/OBS CARE MIN Diagnoses Left leg cellulitis L03.116 Type 2 diabetes mellitus with diabetic polyneuropathy, with long-term current use of insulin E11.42; Z79.4 Diabetes mellitus complication detail: with polyneuropathy Diabetes mellitus complication status: with neurologic complications Diabetes mellitus correction insulin use: with shredder operator use Hyperlipidemia, unspecified hyperlipidemia type E78.5 Hyperlipidemia type: unspecified (2) Diabetes mellitus, type 2 Diabetes mellitus complication detail: with polyneuropathy Diabetes mellitus complication status: with neurologic complications Diabetes mellitus shredder operator insulin use: with shredder operator use Qualified Code(s): E11.42 - Type 2 diabetes mellitus with diabetic polyneuropathy; Z79.4 - assisted (current) use of insulin (3) Hyperlipidemia Hyperlipidemia type: unspecified Qualified Code(s): E78.5 - Hyperlipidemia, unspecified
[2025-02-06] MEDS ORDERED: PHARMACY GLYCEMIC MGMT CONSULT PRN (12:55)
[2025-02-06] MEDS: VANCOMYCIN HCL 2,500 MG in SODIUM CHLORIDE 0.9% 500 ML IV ONE (13:12)
--- NOTE | 2025-02-06 13:23 | Ultrasound Report ---
LEFT LOWER EXTREMITY VENOUS DOPPLER CLINICAL HISTORY: Left lower extremity pain and swelling. COMPARISON STUDY: Bilateral lower extremity venous Doppler ultrasound September 19, 2024. TECHNIQUE: Sonography of the deep venous system of the left lower extremity was performed. Compressi on and augmentation were evaluated. FINDINGS: The left common femoral, superficial femoral and popliteal veins were compressible. Augmen tation was normal. Flow was shown within the deep calf vessels. Prominent left inguinal lymph node co ntains a fatty hilum and is elongated. This is likely benign. Left calf edema is noted. IMPRESSION: 1. No evidence of deep venous thrombus within the left lower extremity. 2. Left calf edema. ACT 112: Negative or not required by law. Electronically signed by: Honorio Santa M.D. 02/06/2025 1:22 PM
--- NOTE | 2025-02-06 14:23 | Pharmacy Report ---
Pharmacy Glycemic Short Note 2 - Date of Service February 06, 2025 - Glycemic Short BSG Results (Last 24 hours): 02/06/25 11:08 Glucose 156 H OUTPATIENT ANTIDIABETIC REGIMEN: * Semglee 32 units SQ daily * glipizide 5mg po BID HBA1c: 7.8% on 09-20-24, updated value ordered for 02/07 ASSESSMENT: * 74year old male admitted today for LLE cellulitis. Pharmacy has been consulted for glycemic management while he is admitted. * BSG was 156mg/dL on admit. A weight based bolus insulin regimen with a stress of ~2 has been ordered. No additional basal insulin will be ordered today, but need will be reassessed tomorrow morning. PLAN FOR INPATIENT GLYCEMIC CONTROL: * Hold outpatient diabetes medications * Basal insulin * no additional today--reassess tomorrow morning * Bolus insulin * NovoLog per scale ACHS or Q6hrs while NPO * Goal Range: Low 110 mg/dL - High 140 mg/dL * Correction Factor: 25 mg/dL/unit * Nutritional / Prandial insulin per carb ratio of 1 unit per 10 grams CHO consumed
--- OUTSIDE RECORDS SUMMARY | 2025-02-06 14:31 | External Medical Summary | Continuity of Care Document ---
Author Name Unknown Organization [facility] [address] [place], [place] [id number] Care Team Providers Care Fraternity House Cook Name Role Phone Jaqueline Jesus Primary Care Physician [phone] [id number] Date(s): 12/24/24 - 12/24/24 [facility] [address] [facility] [address], [address] [place] [address] [phone] Encounter Diagnosis Edema of leg(Discharge Diagnosis) - 12/24/24 Discharge Disposition: Home or Self Care Attending Physician: MD Holley Eugene J Referring Physician: MARCELLO Jesus Taylor Marie Encounter Type: Clinic Allergies, Adverse Reactions, Alerts No Known Allergies Assessment and Plan Extracted from: Title:Clinical Document Author:MARCELLO Gan Lynn Date:12/24/24 I OUTPATIENT NOTE Name: BRANDAN THOMAS Patient Number: [id number] : 1950 Date of Service: 12/24/2024 Chief Complaint: _New patient consultation for bilateral lower extremity edema, possible PAD HPI: _Mr. Thomas is an incarcerated middle-age male presents to Dr. Holley's vascular surgery clinic today as a new patient in consultation for severe bilateral extremity edema and possible PAD. Patient states that he has had severe edema in the bilateral lower extremities for a number of years. He feels that is getting worse over time. There are times that the skin will actually open and ooze out watery fluid, and even develop ulcerations. When that happens, the infirmmorrow will use Unna boots on his leg until the wounds heal. He has been prescribed compression stockings, but states that he is unable to get them on his legs due to the size of his legs even in the morning. He states the swelling does go down slightly by morning, but not much. He has been using Quique wrap's to his feet and legs to keep the swelling down the best he can. He states that he has a reddish/purple discoloration of the bilateral lower extremities which has been chronic for many years. He states that his legs feel heavy and achy, worse at the end of the day than in the morning. He denies headache, fever, chest pain, shortness of breath, abdominal pain, nausea, vomiting, rest pain, claudication, nonhealing wounds or ulcers recently, other complaints. He did state that he has had 2 arthroscopic knee surgeries in the right knee, and 1 in the left. He denies any trauma to the lower extremities, or major surgeries. He denies any known history of CHF. Review of systems: A total of 14 systems were reviewed and are negative aside from what is related in his HPI. Imaging: Venous imaging of the bilateral extremities demonstrated no DVT. Arterial imaging demonstrated mild distal disease, but multiphasic flow otherwise. Current Home Meds: (Last Updated 12/24 08:06) DULoxetine (DULoxetine 60 mg oral delayed release capsule) 60 mg PO bid acetaminophen (acetaminophen 650 mg oral tablet, extended release) 650 mg PO q8h aspirin (aspirin 81 mg oral tablet, chewable) 81 mg PO Daily atorvastatin (atorvastatin 10 mg oral tablet) 10 mg PO Daily cyanocobalamin (Vitamin B12 100 mcg oral tablet) 100 mcg PO Daily diclofenac (diclofenac sodium 50 mg oral delayed release tablet) 50 mg PO Daily PRN: as needed for pain docusate (docusate sodium 100 mg oral capsule) 100 mg PO Daily PRN: as needed for constipation ferrous sulfate (ferrous sulfate 324 mg (65 mg elemental iron) oral delayed release tablet) 324 mg PO Daily glipiZIDE (glipiZIDE 5 mg oral tablet) 5 mg PO bid ibuprofen (ibuprofen 200 mg oral tablet) PRN: as needed for pain 3 tab PO q6h insulin glargine (insulin glargine 100 units/mL subcutaneous solution) 32 unit subQ Daily insulin regular (NovoLIN R FlexPen 100 units/mL injectable solution) per sliding scale at 7 am and 4 pm Allergies and Sensitivities: NKA Past Medical History: Problems: Edema of leg Type 2 diabetes mellitus Hypercholesterolemia Anemia Depression Anxiety Surgical history: Positive for tonsillectomy, jaw fracture repair, and arthroscopic knee surgeries Family history: Positive for coronary disease, hypertension, diabetes. Social history: Patient is a lifelong non-smoker. He denies alcohol or illicit drug use. He is currently [facility] local [facility]. OBJECTIVE Vitals: Last Updated 12/24/24 08:18 Date Temp BP Location Pulse RR SpO2 Pain 12/24/24 166/78 Right Arm 12/24/24 172/92 Left Arm 97 97 0 Vital Signs are the last 3 documented. No Orthostatic Data Available Height and Weight: Last Updated 12/24/24 08:15 Date BMI Wt(kg) Wt(lb) Method Ht(cm) (ft-in) Method 12/24/24 99.79 220 Standing Scale Heights and Weights are the last 3 documented. Physical Exam Constitutional: In general patient is a obese but healthy-appearing well- nourished well-developed middle-age male in no distress. Is alert and oriented but in focal deficits. Carotids do not demonstrate a bruit. Trachea is midline. Heart is regular with an occasional PVC. Lungs are decreased but clear. Abdomen is protuberant due to body habitus but is soft and nontender with normoactive bowel sounds in 4 quadrants. Brachial and radial pulses are +3. Femoral pulse are +3. Lower EXTR distal pulses are +3. He has brisk capillary refill and no sign of distal ischemia. His bilateral lower extremities do demonstrate +4 pitting edema with thin skin and skin changes consistent with chronic venous insufficiency including venous stasis. There are no open ulcerations presently. He has a few scattered varicosities. Edema does continue onto his feet bilaterally. ASSESSMENT: _ PLAN: _ 1 ) _edema bilateral lower extremities, The swelling in his bilateral lower extremities was consistent with venous insufficiency, but there may be some element of lymphedema as well. Both diagnoses are treated similarly in a conservative fashion with elevation of the legs when he is able, regular exercise such as ambulation, and wearing at least knee-high graduated compression therapy. Patient does have severe difficulty in getting the compression stockings on his legs in the morning, and for this reason we recommend that he consider a zippered stockings versus using a Lymphapress machine, depending on availability at this facility. This was discussed at length with the patient. He does not appear to have any significant peripheral arterial disease by physical exam. At this point patient will return here on an as-needed basis. Unfortunately there are no indications for surgical intervention presently, nor are there surgical options from which the patient would benefit. Thank you for letting us participate in the care of this patient. I have personally spent _37__ minutes performing [id number] and [id number]-face activities on this date of service. Time does not include separately reported services. Activities Include: x__ review of the medical record _x_ obtaining a history x__ physical exam/evaluation __ review labs x__ review radiology reports _x_ counseling/educating patient/family/caregiver __ discussion/referral to other healthcare professional _x_ documenting care in the medical record __ independent interpretation of results _x_ communication of results to patient/family/caregiver _x_ coordination of care Medications acetaminophen 650 mg oral tablet, extended release Start: 12/23/24 3:40:00 PM EDT, 1 tab, PO, q8h Start Date: 12/23/24 Status: Ordered Repeat number: 1 aspirin 81 mg oral tablet, chewable Start: 12/23/24 3:43:00 PM EDT, 1 tab, PO, Daily Start Date: 12/23/24 Status: Ordered Repeat number: 1 atorvastatin 10 mg oral tablet Start: 12/23/24 3:42:00 PM EDT, 1 tab, PO, Daily Start Date: 12/23/24 Status: Ordered Repeat number: 1 diclofenac sodium 50 mg oral delayed release tablet Start: 12/23/24 3:47:00 PM EDT, 1 tab, PO, Daily, PRN: as needed for pain Start Date: 12/23/24 Status: Ordered Repeat number: 1 docusate sodium 100 mg oral capsule Start: 12/24/24 8:05:00 AM EDT, 1 cap, PO, Daily, PRN: as needed for constipation Start Date: 12/24/24 Status: Ordered Repeat number: 1 DULoxetine 60 mg oral delayed release capsule Start: 12/23/24 3:43:00 PM EDT, 1 cap, PO, bid Start Date: 12/23/24 Status: Ordered Repeat number: 1 ferrous sulfate 324 mg (65 mg elemental iron) oral delayed release tablet Start: 12/24/24 8:05:00 AM EDT, 1 tab, PO, Daily Start Date: 12/24/24 Status: Ordered Repeat number: 1 glipiZIDE 5 mg oral tablet Start: 12/23/24 3:42:00 PM EDT, 1 tab, PO, bid Start Date: 12/23/24 Status: Ordered Repeat number: 1 ibuprofen 200 mg oral tablet Start: 12/23/24 3:41:00 PM EDT, See Instructions, 3 tab PO q6h, PRN: as needed for pain Start Date: 12/23/24 Status: Ordered Repeat number: 1 insulin glargine 100 units/mL subcutaneous solution Start: 12/23/24 3:43:00 PM EDT, 32 unit =, subQ, Daily Start Date: 12/23/24 Status: Ordered Repeat number: 1 NovoLIN R FlexPen 100 units/mL injectable solution Start: 12/24/24 8:04:00 AM EDT, per sliding scale at 7 am and 4 pm Start Date: 12/24/24 Status: Ordered Repeat number: 1 Vitamin B12 100 mcg oral tablet Start: 12/24/24 8:05:00 AM EDT, 1 tab, PO, Daily Start Date: 12/24/24 Status: Ordered Repeat number: 1 Mental Status 12/24/24 Barriers to Learning one year None evide nt Mandatory Health Literacy Documentation Yes Health Literacy Communication Barriers N ever Primary Language Samoan Problem List Condition Confirmation Course Effective Dates Status Health St atus Informant Edema of leg Confirmed Active Diagnosis Diagnosis Type Effective Dates Health Status Cl inical Service Informant Edema of leg Discharge Diagnosis 12/24/24 Vital Signs Most recent to oldest [Reference Range]: 1 2 Patient Weight 99.79 kg (12/24/24 8:15 AM) Heart Rate 97 bpm (12/24/24 8:15 AM) Blood Pressure 166/78mmHg (12/24/24 8:18 AM) 172/92mmHg (12/24/24 8:15 AM) BP Location # 1 Right Arm (12/24/24 8:18 AM) Left Arm (12/24/24 8:15 AM) Social History Social History Type Response Smoking Status Never smoked cigaret radha Sex Sex Representation Male (finding) [facility] Outpt Note * MARCELLO Gan Lynn: PERFORM Event Display: [facility] Outpt Note Authored Date: [id number] [facility] OUTPATIENT NOTE Name: BRANDAN THOMAS Patient Number: [id number] : 1950 Date of Service: 12/24/2024 Chief Complaint: _New patient consultation for bilateral lower extremity edema, possible PAD HPI: _Mr. Thomas is an incarcerated middle-age male presents to Dr. Holley's vascular surgery clinic today as a new patient in consultation for severe bilateral extremity edema and possible PAD. Patient states that he has had severe edema in the bilateral lower extremities for a number of years.He feels that is getting worse over time. There are times that the skin will actually open and oozeout watery fluid, and even develop ulcerations. When that happens, [facility] use Unna boots on his leg until the wounds heal. He has been prescribed compression stockings, but states that heis unable to get them on his legs due to the size of his legs even in the morning. He states the swelling does go down slightly by morning, but not much. He has been using Quique wrap's to his feet and legs to keep the swelling down the best he can. He states that he has a reddish/purple discolorationof the bilateral lower extremities which has been chronic for many years. He states that his legs feel heavy and achy, worse at the end of the day than in the morning. He denies headache, fever, chest pain, shortness of breath, abdominal pain, nausea, vomiting, rest pain, claudication, nonhealing wounds or ulcers recently, other complaints. He did state that he has had 2 arthroscopic knee surgeries in the right knee, and 1 in the left. He denies any trauma to the lower extremities, or major surgeries. He denies any known history of CHF. Review of systems: A total of 14 systems were reviewed and are negative aside from what is related in his HPI. Imaging: Venous imaging of the bilateral extremities demonstrated no DVT. Arterial imaging demonstrated mild distal disease, but multiphasic flow otherwise. Current Home Meds: (Last Updated 12/24 08:06) DULoxetine (DULoxetine 60 mg oral delayed release capsule) 60 mg PO bid acetaminophen (acetaminophen 650 mg oral tablet, extended release) 650 mg PO q8h aspirin (aspirin 81 mg oral tablet, chewable) 81 mg PO Daily atorvastatin (atorvastatin 10 mg oral tablet) 10 mg PO Daily cyanocobalamin (Vitamin B12 100 mcg oral tablet) 100 mcg PO Daily diclofenac (diclofenac sodium 50 mg oral delayed release tablet) 50 mg PO Daily PRN: as needed for pain docusate (docusate sodium 100 mg oral capsule) 100 mg PO Daily PRN: as needed for constipation ferrous sulfate (ferrous sulfate 324 mg (65 mg elemental iron) oral delayed release tablet) 324 mg PO Daily glipiZIDE (glipiZIDE 5 mg oral tablet) 5 mg PO bid ibuprofen (ibuprofen 200 mg oral tablet) PRN: as needed for pain 3 tab PO q6h insulin glargine (insulin glargine 100 units/mL subcutaneous solution) 32 unit subQ Daily insulin regular (NovoLIN R FlexPen 100 units/mL injectable solution) per sliding scale at 7 am and 4 pm Allergies and Sensitivities: NKA Past Medical History: Problems: Edema of leg Type 2 diabetes mellitus Hypercholesterolemia Anemia Depression Anxiety Surgical history: Positive for tonsillectomy, jaw fracture repair, and arthroscopic knee surgeries Family history: Positive for coronary disease, hypertension, diabetes. Social history: Patient is a lifelong non-smoker. He denies alcohol or illicit drug use. He is currently incarcerated at local senior care. OBJECTIVE Vitals: Last Updated 12/24/24 08:18 Date Temp BP Location Pulse RR SpO2 Pain 12/24/24 166/78 Right Arm 12/24/24 172/92 Left Arm 97 97 0 Vital Signs are the last 3 documented. No Orthostatic Data Available Height and Weight: Last Updated 12/24/24 08:15 Date BMI Wt(kg) Wt(lb) Method Ht(cm) (ft-in) Method 12/24/24 99.79 220 Standing Scale Heights and Weights are the last 3 documented. Physical Exam Constitutional: In general patient is a obese but healthy-appearing well- nourished well-developed middle-age male in no distress. Is alert and oriented but in focal deficits. Carotids do not demonstrate a bruit. Trachea is midline. Heart is regular with an occasional PVC. Lungs are decreased but clear. Abdomen is protuberant due to body habitus but is soft and nontender with normoactive bowel sounds in 4 quadrants. Brachial and radial pulses are +3. Femoral pulse are +3. Lower EXTR distal pulses are +3. He has brisk capillary refill and no sign of distal ischemia. His bilateral lower extremities do demonstrate +4 pitting edema with thin skin and skin changes consistent with chronic venous in sufficiency including venous stasis. There are no open ulcerations presently. He has a few scattered varicosities. Edema does continue onto his feet bilaterally. ASSESSMENT: _ PLAN: _ 1 ) _edema bilateral lower extremities, The swelling in his bilateral lower extremities was consistent with venous insufficiency, but theremay be some element of lymphedema as well. Both diagnoses are treated similarly in a conservative fashion with elevation of the legs when he is able, regular exercise such as ambulation, and wearing at least knee-high graduated compression therapy. Patient does have severe difficulty in getting thecompression stockings on his legs in the morning, and for this reason we recommend that he considera zippered stockings versus using a Lymphapress machine, depending on availability at this facility. This was discussed at length with the patient. He does not appear to have any significant peripheral arterial disease by physical exam. At this point patient will return here on an as-needed basis. Unfortunately there are no indications for surgical intervention presently, nor are there surgical options from which the patient would benefit. Thank you for letting us participate in the care of this patient. I have personally spent _37__ minutes performing [id number] and yuf-[id number]-face activities on this date of service. Time does not include separately reported services. Activities Include: x__ review of the medical record _x_ obtaining a history x__ physical exam/evaluation __ review labs x__ review radiology reports _x_ counseling/educating patient/family/caregiver __ discussion/referral to other healthcare professional _x_ documenting care in the medical record __ independent interpretation of results _x_ communication of results to patient/family/caregiver _x_ coordination of care Electronic Signature on File CC: Sam Mason MD [address] [id number] * Electronically Reviewed/Signed by: Virgen Gan PA-C Author Signature Dt/Tm:12/24/2024 11:09 AM [facility] [place] [address], [address] [place] [address] [place] Patient Care team information Care Team Personnel Name: MARCELLO Gan Lynn Position: Physician Public Welfare Director Exempt - Vasc Surg Member Role: Lifetime Relationship Address: [facility] [address] [place] [address] [place] Telecom: [phone] Name: MARCELLO Jesus, Jaqueline Hyde Position: Referring Member Role: Primary Care Provider Address: [facility] [address] [place] [address] [place] [address] Telecom: [phone] Care Team Related Persons Name: [facility] Insurance Providers Guarantor name: PASCUAL Health Plan Information #: 1 Payer: [employer] Member Number: [id number] Policy Number: NA Group Number: NA Health Plan Information #: 2 Payer: [employer] Member Number: [id number] Policy Number: NA Group Number: NA Health Plan Information #: 3 Payer: SELF PAY Member Number: NA Policy Number: NA Group Number: NA
[2025-02-06] MEDS: SODIUM CHLORIDE 0.9% 1,000 ML IV SCH (14:39)
--- NOTE | 2025-02-06 14:43 | Pharmacy Report ---
Pharmacy PK ABX Note - Date of Service February 06, 2025 - Assessment and Plan Assessment 74 year old M receiving VANCOMYCIN/ZOSYN for treatment of left leg cellulitis. Pertinent microbiologic data includes: Blood cultures pending WBC 22, procal 1.69. Plan Vancomycin * Loading dose: 2500 mg IV x 1 * Maintenance dose: 1000 mg IV every 12 hours * Regimen is predicted to achieve target AUC/TEZ of 400-600 mg/L.hr * Random level 02/08 @ 1100 Pharmacy will continue to follow and will adjust dose/frequency as necessary. Thank you. Pharmacy has transitioned to AUC monitoring for vancomycin. AUC/TEZ is the preferred PK/PD target and is associated with decreased risk of nephrotoxicity compared to traditional trough targets.
[2025-02-06] MEDS: PIPERACILLIN/TAZOBACTAM 4.5 GM/100 ML BAG IV SCH (16:27)
[2025-02-06] MEDS: INSULIN ASPART PER UNIT CHARGE SC SCH (20:21)
[2025-02-06] MEDS: DULoxetine HCL 60 MG CAP PO SCH (20:51)
[2025-02-06] MEDS: ATORVASTATIN 10 MG TAB PO SCH (20:51)
[2025-02-06] MEDS: ENOXAPARIN INJ 40 MG/0.4 ML SYR SQ SCH (20:51)
[2025-02-07] MEDS: VANCOMYCIN HCL 1,000 MG/270 ML BAG IV SCH (00:02)
[2025-02-07 06:24] LABS: Hematocrit (blood only) 35.8 % (42.0-52.0); Hemoglobin 11.8 g/dl (14.0-18.0); Mean Corpuscular Hemoglobin 27.6 pg (25.0-34.0); Mean Corpuscular Volume 83.8 fL (80.0-100.0); Mean Platelet Volume 11.3 fL (9.4-12.4); Platelet Count 191 K/uL (130-400); RDW Coefficient of Variation 15.4 % (11.5-14.5); RDW Standard Deviation 47.3 fL (36.4-46.3); Red Blood Count 4.27 M/uL (4.70-6.10); White Blood Count 17.73 K/ul (4.8-10.8)
[2025-02-07 07:00] LABS: BUN Creatinine Ratio 17.3 (10-20); Calcium 8.4 mg/dl (8.6-10.3); Creatinine Clr Calc Pharmacy 62.3 ml/min; Potassium 3.3 mmol/L (3.5-5.1)
[2025-02-07 07:22] LABS: Estimated Average Glucose 148 mg/dl; Hemoglobin A1C 6.8 % (4.5-5.6)
[2025-02-07] MEDS: DICLOFENAC SODIUM 25 MG TABDR PO SCH (08:02)
[2025-02-07] MEDS: ASPIRIN 81 MG CHEW PO SCH (08:02)
[2025-02-07] MEDS: LANTUS PER UNIT CHARGE SC SCH (08:05)
--- NOTE | 2025-02-07 08:53 | Hospitalist Progress Note ---
Date of Service February 07, 2025 Assessment & Plan (1) Left leg cellulitis: (2) Diabetes mellitus, type 2: (3) Hyperlipidemia: Plan This is a 74 year old gentleman with past medical history of Type 2 diabetes, hyperlipidemia, venous insufficiency, lower extremity edema, depression/anxiety. He presented to the ED from [facility] on 02/06/2025 with left lower extremity cellulitis, with associated warmth, erythema and edema, and streaking into groin region. He had a significant leukocytosis of 22 and procalcitonin of 1.6 venous Doppler was negative for DVT. Started on vancomycin and Zosyn on admission. MRSA screen negative. Erythema reducing, now extends from toes to knee without streaking into groin; no perineal involvement. #Left leg cellulitis Leukocytosis improving but remains elevated at 17, procalcitonin remains elevated at 1.9 Blood cultures pending Transitioned antibiotics to Ancef 2 g IV Q8H Trend CBC, procal with AM labs #Hypokalemia Mild at 3.3, repleted with KCl 40 mEq p.o. x 1 Repeat BMP in AM #Type 2 DM Outpatient regimen: Glipizide BID, Glargine 32 units daily Pharmacy glycemic consult in place and managing A1c 6.8% (improved from 7.8% in 09/2024) #Hyperlipidemia - Continue atorvastatin 10 mg HS #Anxiety/depression - Continue duloxetine 60 mg BID DVT prophylaxis: Lovenox 40 mg Dispo: Anticipated needing a few days of IV antibiotics prior to transition to oral antibiotics. Repleted potassium Discontinued Vancomycin and Zosyn Started Ancef IV Admission and Anticipated Discharge Date Admission Date: February 06, 2025 Subjective Patient seen and evaluated at bedside with 2 senior care guards present. He reports feeling ok at this time. He notes that overnight he had some sharp stabbing pains in his LLE, which resolved after medication. He denies any pain in his LLE at this time. He notes this cellulitis infection began a few days ago, denies an inciting event to his knowledge. His erythema has reduced from his groin to his knee. He denies any nausea, vomiting, diarrhea, fever, or chills. We discussed adjusting his antibiotics and that he will likely remain inpatient for a few days due to needing multiple days worth of IV antibiotics. Patient wa s pleasant and respectful throughout our encounter. No additional complaints or concerns at this time. Physical Exam Physical Exam: General: No acute distress, nondiaphoretic, well-developed, well-nourished. Pleasant and respectful. Skin: Left foot with 4+ pitting edema. LLE with 3+ pitting edema. LLE with warmth and erythema extending from his toes to his knee. No erythema, streaking, noted proximal to the L knee; no groin or perineal involvement. No lymphangitis, abscess formation, crepitus noted. Cardiac: Mildly tachycardic rate in 90s and regular rhythm without murmurs gallops or rubs. Pulm: Clear to auscultation bilaterally without wheezes, rales or rhonchi. Normal respiratory effort. 93% on room air. Abdominal: Soft, nontender, nondistened. Bowel sounds present. Neuro: A&O x3. No focal neurological deficits. Results & Data Results & Data Vital Signs (Past 12 Hours) Vital Signs Temp Pulse Pulse Resp BP Pulse Ox O2 Del Method 02/07/25 08:13 98.6 F 96 H 18 129/81 95 Room Air 02/07/25 04:21 99.5 F 100 H 18 135/75 95 Room Air 02/06/25 23:56 99.7 F H 56 L 18 127/72 98 Room Air 02/06/25 22:00 110 H 02/06/25 20:55 Room Air Laboratory Results Reviewed CBC with differential Reviewed BMP, chemistries Reviewed blood cultures Diagnostic Findings Reviewed venous Doppler Venous Doppler Study 02/06/25 10:45 LEFT LOWER EXTREMITY VENOUS DOPPLER CLINICAL HISTORY: Left lower extremity pain and swelling. COMPARISON STUDY: Bilateral lower extremity venous Doppler ultrasound September 19, 2024. TECHNIQUE: Sonography of the deep venous system of the left lower extremity was performed. Compression and augmentation were evaluated. FINDINGS: The left common femoral, superficial femoral and popliteal veins were compressible. Augmentation was normal. Flow was shown within the deep calf vessels. Prominent left inguinal lymph node contains a fatty hilum and is elongated. This is likely benign. Left calf edema is noted. IMPRESSION: 1. No evidence of deep venous thrombus within the left lower extremity. 2. Left calf edema. ACT 112: Negative or not required by law. Electronically signed by: Honorio Santa M.D. 02/06/2025 1:22 PM PG Care Time/CCT Total # of Minutes Spent Total Time Spent with Patient: Total time spent is greater than 50% in coordination of care (as documented) at patient's floor/unit and/or counseling patient: Coding Level of Care Code 56096 SUB INP/OBS CARE 350MIN Diagnoses Left leg cellulitis L03.116 Type 2 diabetes mellitus with diabetic polyneuropathy, with long-term current use of insulin E11.42; Z79.4 Diabetes mellitus complication detail: with polyneuropathy Diabetes mellitus complication status: with neurologic complications Diabetes mellitus penitentiary insulin use: with penitentiary use Hyperlipidemia, unspecified hyperlipidemia type E78.5 Hyperlipidemia type: unspecified (2) Diabetes mellitus, type 2 Diabetes mellitus complication detail: with polyneuropathy Diabetes mellitus complication status: with neurologic complications Diabetes mellitus termite control servicer insulin use: with penitentiary use Qualified Code(s): E11.42 - Type 2 diabetes mellitus with diabetic polyneuropathy; Z79.4 - [facility] (current) use of insulin (3) Hyperlipidemia Hyperlipidemia type: unspecified Qualified Code(s): E78.5 - Hyperlipidemia, unspecified
[2025-02-07] MEDS ORDERED: INSULIN GLARGINE YFGN SQ SCH (09:00)
[2025-02-07] MEDS ORDERED: [UNRECOGNIZED DRUG - OTHER] SQ SCH (09:00)
[2025-02-07] MEDS: POTASSIUM CHLORIDE CRTAB 20 MEQ TABCR PO STA (10:06)
[2025-02-08 06:41] LABS: Basophils # (auto) 0.02 K/uL (0.00-0.20); Basophils % (auto) 0.2 %; Eosinophils # (auto) 0.37 K/uL (0.00-0.50); Eosinophils % (auto) 3.5 %; Hematocrit (blood only) 36.8 % (42.0-52.0); Hemoglobin 12.2 g/dl (14.0-18.0); Immature Granulocytes # (auto) 0.14 K/uL (0.01-0.20); Immature Granulocytes % (auto) 1.3 %; Lymphocytes # (auto) 1.06 K/uL (1.20-3.40); Lymphocytes % (auto) 10.2 %; Mean Corpuscular Hemoglobin 27.7 pg (25.0-34.0); Mean Corpuscular Hgb Conc 33.2 g/dL (32.0-36.0); Mean Corpuscular Volume 83.6 fL (80.0-100.0); Mean Platelet Volume 10.8 fL (9.4-12.4); Monocytes # (auto) 0.72 K/uL (0.11-0.59); Monocytes % (auto) 6.9 %; Neutrophils # (auto) 8.13 K/uL (1.40-6.50); Neutrophils % (auto) 77.9 %; Platelet Count 215 K/uL (130-400); RDW Coefficient of Variation 15.5 % (11.5-14.5); RDW Standard Deviation 47.3 fL (36.4-46.3); White Blood Count 10.44 K/ul (4.8-10.8)
[2025-02-08 07:03] LABS: BUN Creatinine Ratio 24.4 (10-20); Calcium 8.3 mg/dl (8.6-10.3); Creatinine Clr Calc Pharmacy 64.3 ml/min; Potassium 3.4 mmol/L (3.5-5.1)
[2025-02-08] MEDS: POTASSIUM CHLORIDE CRTAB 20 MEQ TABCR PO STA (08:55)
--- NOTE | 2025-02-08 09:52 | Hospitalist Progress Note ---
Date of Service February 08, 2025 Assessment & Plan (1) Left leg cellulitis: (2) Diabetes mellitus, type 2: (3) Hyperlipidemia: Plan This is a 74 year old gentleman with past medical history of Type 2 diabetes, hyperlipidemia, venous insufficiency, lower extremity edema, depression/anxiety. He presented to the ED from [facility] on 02/06/2025 with left lower extremity cellulitis, with associated warmth, erythema and edema, and streaking into groin region. He had a significant leukocytosis of 22 and procalcitonin of 1.6 venous Doppler was negative for DVT. Started on vancomycin and Zosyn on admission. MRSA screen negative. #Left leg cellulitis Unfortunately when antibiotics were adjusted by pharmacy 02/07, the Ancef was not started. Discussed with pharmacy 02/08 and Ancef now started Continue Ancef 2 g IV Q8H Despite lapse in antibiotics, leukocytosis now resolved Blood cultures negative x 24 hours Trend CBC, procal with AM labs #Hypokalemia Mild at 3.4, repleted with KCl 20 mEq p.o. x 1 Repeat BMP in AM #Type 2 DM Outpatient regimen: Glipizide BID, Glargine 32 units daily Pharmacy glycemic consult in place and managing A1c 6.8% (improved from 7.8% in 09/2024) #Hyperlipidemia - Continue atorvastatin 10 mg HS #Anxiety/depression - Continue duloxetine 60 mg BID DVT prophylaxis: Lovenox 40 mg Dispo: Anticipate discharge in the next 24-72 hours Repleted potassium Discussed case with pharmacy Admission and Anticipated Discharge Date Admission Date: February 06, 2025 Subjective Patient seen and evaluated at bedside with 2 guards present. He reports feeling well overall. He reports "some twinges of sharp pain overnight" in his LLE but denies pain at this time. He denies N, V, D, headache, abdominal pain. No additional complaints or concerns at this time. Physical Exam Physical Exam: General: No acute distress, nondiaphoretic, well-developed, well-nourished. Pleasant and respectful. Skin: Left foot with 4+ pitting edema. LLE with 3+ pitting edema. LLE with warmth and erythema extending from his toes to his mid-yost. No erythema, streaking, noted proximal to the L mid-yost; no groin or perineal involvement. No lymphangitis, abscess formation, crepitus noted. Cardiac: Regular rate and rhythm without murmurs gallops or rubs. Pulm: Clear to auscultation bilaterally without wheezes, rales or rhonchi. Normal respiratory effort. 97% on room air. Abdominal: Soft, nontender, nondistened. Bowel sounds present. Neuro: A&O x3. No focal neurological deficits. Results & Data Results & Data Vital Signs (Past 12 Hours) Vital Signs Temp Pulse Pulse Resp BP Pulse Ox O2 Del Method 02/08/25 07:36 97.5 F L 73 18 129/81 97 Room Air 02/08/25 07:09 68 02/08/25 03:39 97.3 F L 72 18 154/85 H 97 Room Air 02/08/25 02:48 97 H 02/07/25 23:24 98.2 F 92 H 18 148/83 H 97 Room Air Laboratory Results Reviewed CBC with differential Reviewed BMP, procalcitonin Reviewed blood cultures PG Care Time/CCT Total # of Minutes Spent Total Time Spent with Patient: Total time spent is greater than 50% in coordination of care (as documented) at patient's floor/unit and/or counseling patient: Coding Level of Care Code 27732 SUB INP/OBS CARE 3/50MIN Diagnoses Left leg cellulitis L03.116 Type 2 diabetes mellitus with diabetic polyneuropathy, with long-term current use of insulin E11.42; Z79.4 Diabetes mellitus complication detail: with polyneuropathy Diabetes mellitus complication status: with neurologic complications Diabetes mellitus technician terminal and repeater insulin use: with technician terminal and repeater use Hyperlipidemia, unspecified hyperlipidemia type E78.5 Hyperlipidemia type: unspecified (2) Diabetes mellitus, type 2 Diabetes mellitus complication detail: with polyneuropathy Diabetes mellitus complication status: with neurologic complications Diabetes mellitus intermediate insulin use: with technician terminal and repeater use Qualified Code(s): E11.42 - Type 2 diabetes mellitus with diabetic polyneuropathy; Z79.4 - medical terminologist (current) use of insulin (3) Hyperlipidemia Hyperlipidemia type: unspecified Qualified Code(s): E78.5 - Hyperlipidemia, unspecified
[2025-02-08] MEDS ORDERED: VANCOMYCIN LEVEL ONE (11:00)
[2025-02-08] MEDS: ceFAZolin 2000MG 2,000 MG/15 ML SYR IV SCH (11:49)
[2025-02-09 07:04] LABS: Hematocrit (blood only) 37.3 % (42.0-52.0); Hemoglobin 12.4 g/dl (14.0-18.0); Mean Corpuscular Hemoglobin 27.6 pg (25.0-34.0); Mean Corpuscular Hgb Conc 33.2 g/dL (32.0-36.0); Mean Corpuscular Volume 83.1 fL (80.0-100.0); Mean Platelet Volume 10.7 fL (9.4-12.4); Platelet Count 282 K/uL (130-400); RDW Coefficient of Variation 15.4 % (11.5-14.5); Red Blood Count 4.49 M/uL (4.70-6.10); White Blood Count 11.61 K/ul (4.8-10.8)
[2025-02-09 07:22] LABS: BUN Creatinine Ratio 25.5 (10-20); Calcium 8.4 mg/dl (8.6-10.3); Creatinine Clr Calc Pharmacy 74.3 ml/min; Potassium 3.6 mmol/L (3.5-5.1)
--- NOTE | 2025-02-09 08:51 | Hospitalist Progress Note ---
Date of Service February 09, 2025 Assessment & Plan (1) Left leg cellulitis: (2) Diabetes mellitus, type 2: (3) Hyperlipidemia: Plan This is a 74 year old gentleman with past medical history of Type 2 diabetes, hyperlipidemia, venous insufficiency, lower extremity edema, depression/anxiety. He presented to the ED from [facility] on 02/06/2025 with left lower extremity cellulitis, with associated warmth, erythema and edema, and streaking into groin region. He had a significant leukocytosis of 22 and procalcitonin of 1.6 venous Doppler was negative for DVT. Started on vancomycin and Zosyn on admission. MRSA screen negative. Unfortunately when antibiotics were adjusted by pharmacy on 02/07, the Ancef was not started. Discussed with pharmacy on 02/08 and Ancef was started. #Left leg cellulitis Blood cultures negative x 48 hours Continue Ancef 2 g IV Q8H Minor increase in leukocytosis - ?from lapse in antibiotics - monitor in AM. Afebrile. LLE appears unchanged from 02/08 CRP elevated at 23.36 - Trend CRP in AM #Nausea/Vomiting New onset nausea with vomiting began evening of 02/08. Nausea resolves with Zofran. Abdominal exam benign Start Protonix 40 mg BID, Famotidine 20 mg BID IV fluids with NSS @ 125/hr #Type 2 DM Outpatient regimen: Glipizide BID, Glargine 32 units daily Pharmacy glycemic consult in place and managing A1c 6.8% (improved from 7.8% in 09/2024) #Hypokalemia - repleted orally and augmented appropriately; K now WNL at 3.6 #Hyperlipidemia - Continue atorvastatin 10 mg HS #Anxiety/depression - Continue duloxetine 60 mg BID DVT prophylaxis: Lovenox 40 mg Dispo: No improvement in appearance of cellulitis compared to yesterday 02/08. Now with associated nausea and vomiting. Anticipate discharge in the next 24-48 hours if cellulitis improves and N/V resolves. Started Protonix, Famotidine Started IV fluids Admission and Anticipated Discharge Date Admission Date: February 06, 2025 Subjective Patient seen and evaluated at bedside with 2 guards present. He reports having multiple episodes of emesis since last night - he estimates ~ 5 episodes. He has been feeling nauseated since last night but denies abdominal pain or diarrhea. He also reports that the tenderness in his LLE has improved, but feels the swelling is the same. He denies nausea at this time, stating he received Zofran recently. He denies having an appetite at this time. He denies headache, shortness of breath, chest pain. He asked for a jerson tiara but denied any further needs at this time. Physical Exam Physical Exam: General: No acute distress, nondiaphoretic, well-developed, well-nourished. Pleasant and respectful. Skin: Left foot with 4+ pitting edema. LLE with 3+ pitting edema. LLE with warmth and erythema extending from his toes to his mid-yost. No erythema, streaking, noted proximal to the L mid-yost; no groin or perineal involvement. No lymphangitis, abscess formation, crepitus noted. Scaling of LE noted bilaterally. Appears unchanged from yesterday 02/08. Cardiac: Regular rate and rhythm without murmurs gallops or rubs. Pulm: Clear to auscultation bilaterally without wheezes, rales or rhonchi. Normal respiratory effort. 94% on room air. Abdominal: Soft, nontender, nondistened. Bowel sounds present. Neuro: A&O x3. No focal neurological deficits. Results & Data Results & Data Vital Signs (Past 12 Hours) Vital Signs Temp Pulse Pulse Resp BP BP Pulse Ox 02/09/25 08:08 97.7 F 97 H 20 159/80 H 97 02/09/25 07:24 96 H 02/09/25 04:05 97.7 F 92 H 18 173/83 H 95 02/08/25 23:36 98.1 F 78 20 183/92 H 94 02/08/25 23:00 101 H O2 Del Method 02/09/25 08:08 Room Air 02/09/25 07:24 02/09/25 04:05 Room Air 02/08/25 23:36 Room Air 02/08/25 23:00 Laboratory Results Reviewed CBC Reviewed BMP Reviewed blood cultures PG Care Time/CCT Total # of Minutes Spent Total Time Spent with Patient: Total time spent is greater than 50% in coordination of care (as documented) at patient's floor/unit and/or counseling patient: Coding Level of Care Code 02177 SUB INP/OBS CARE 3/50MIN Diagnoses Left leg cellulitis L03.116 Type 2 diabetes mellitus with diabetic polyneuropathy, with long-term current use of insulin E11.42; Z79.4 Diabetes mellitus complication detail: with polyneuropathy Diabetes mellitus complication status: with neurologic complications Diabetes mellitus shelter insulin use: with shelter use Hyperlipidemia, unspecified hyperlipidemia type E78.5 Hyperlipidemia type: unspecified (2) Diabetes mellitus, type 2 Diabetes mellitus complication detail: with polyneuropathy Diabetes mellitus complication status: with neurologic complications Diabetes mellitus shelter insulin use: with shelter use Qualified Code(s): E11.42 - Type 2 diabetes mellitus with diabetic polyneuropathy; Z79.4 - custodial (current) use of insulin (3) Hyperlipidemia Hyperlipidemia type: unspecified Qualified Code(s): E78.5 - Hyperlipidemia, unspecified
--- NOTE | 2025-02-09 10:38 | Pharmacy Report ---
Pharmacy Glycemic Short Note 2 - Date of Service February 09, 2025 - Glycemic Short BSG Results (Last 24 hours): 02/08/25 02/08/25 02/08/25 11:50 16:59 20:11 Glucose POC Glucose 131 H 135 H 118 H 02/09/25 02/09/25 06:41 07:59 Glucose 197 H POC Glucose 187 H OUTPATIENT ANTIDIABETIC REGIMEN: * Semglee 32 units SQ daily * glipizide 5mg po BID HBA1c: 7.8% on 09-20-24, updated value ordered for 02/07 ASSESSMENT: 02/09: * Edward received 37 units of insulin yesterday (25 were basal) * Fasting BSG this AM elevated, yesterday fasting was below goal range, no changes to basal insulin at this time, will continue to trend * No changes to NovoLog at this time, he continues on Ancef. 02/06: * 74year old male admitted today for LLE cellulitis. Pharmacy has been consulted for glycemic management while he is admitted. * BSG was 156mg/dL on admit. A weight based bolus insulin regimen with a stress of ~2 has been ordered. No additional basal insulin will be ordered today, but need will be reassessed tomorrow morning. PLAN FOR INPATIENT GLYCEMIC CONTROL: * Hold outpatient diabetes medications * Basal insulin * Lantus 25 units SQ QAM * Bolus insulin * NovoLog per scale ACHS or Q6hrs while NPO * Goal Range: Low 110 mg/dL - High 140 mg/dL * Correction Factor: 30 mg/dL/unit * Nutritional / Prandial insulin per carb ratio of 1 unit per 10 grams CHO consumed
[2025-02-09] MEDS: ONDANSETRON INJ 2 MG/ML 2 ML VIAL IV PRN (11:12)
[2025-02-09] MEDS: SODIUM CHLORIDE 0.9% 1,000 ML IV SCH (15:04)
[2025-02-09 15:14] LABS: C Reactive Protein 23.36 mg/dl (0-0.5)
[2025-02-09] MEDS: FAMOTIDINE 20 MG TAB PO SCH (21:12)
[2025-02-09] MEDS: PANTOprazole 40 MG TAB PO SCH (21:13)
[2025-02-10 06:30] LABS: Hematocrit (blood only) 33.6 % (42.0-52.0); Mean Corpuscular Hemoglobin 27.8 pg (25.0-34.0); Mean Corpuscular Hgb Conc 32.7 g/dL (32.0-36.0); Mean Corpuscular Volume 84.8 fL (80.0-100.0); Mean Platelet Volume 11.1 fL (9.4-12.4); Platelet Count 288 K/uL (130-400); RDW Coefficient of Variation 15.5 % (11.5-14.5); RDW Standard Deviation 47.9 fL (36.4-46.3); Red Blood Count 3.96 M/uL (4.70-6.10); White Blood Count 10.77 K/ul (4.8-10.8)
[2025-02-10 06:49] LABS: BUN Creatinine Ratio 24.2 (10-20); C Reactive Protein 16.23 mg/dl (0-0.5); Creatinine Clr Calc Pharmacy 86.9 ml/min; Potassium 3.7 mmol/L (3.5-5.1)
--- NOTE | 2025-02-10 07:17 | Hospitalist Progress Note ---
Date of Service February 10, 2025 Assessment & Plan (1) Left leg cellulitis: (2) Diabetes mellitus, type 2: (3) Hyperlipidemia: Plan This is a 74 year old gentleman with past medical history of Type 2 diabetes, hyperlipidemia, venous insufficiency, lower extremity edema, depression/anxiety. He presented to the ED from [facility] on 02/06/2025 with left lower extremity cellulitis, with associated warmth, erythema and edema, and streaking into groin region. He had a significant leukocytosis of 22 and procalcitonin of 1.6 venous Doppler was negative for DVT. Started on vancomycin and Zosyn on admission. MRSA screen negative. Unfortunately when antibiotics were adjusted by pharmacy on 02/07, the Ancef was not started. Discussed with pharmacy on 02/08 and Ancef was started. #Left leg cellulitis Initially on Vanco/Zosyn--> de-escalated to Ancef (noting gap on 02/07-02/08 and worsened appearance on 02/09). No hx MRSA that he is aware of Continues on Ancef WBC improved on repeat as well as on exam Blood cultures remain NGTD CRP 23.36--> 16.23 Elevation extremity ordered Continue to monitor w/ markings Lasix 40mg PO x 1 to assist with edema (?reports baseline diuretic use, will need to confirm w/ med rec), IVF @ 125cc/hr has been discontinued Monitor for another 24hr IV abx, if continued improvement can consider dc on Keflex to complete course #Nausea/Vomiting New onset nausea with vomiting PM 02/08, resolved with zofran and reported benign abd exam but had been ordered protonix 40mg BID, pepcid BID and IVF @ 125cc/hr Will continue PPI/H2 lisa however tolerating PO and IVF have been DISCONTINUED Antiemetics available, colace BID added and will check KUB to eval for stool burden as do not see any documented BM since admission in system Monitor #Type 2 DM A1c 6.8, improved from prior 7.8. On Glipizide BID, Glargine 32 units daily as outpatient and pharmacy consulted and managing while inpatient and BSGs have been acceptable #Hypokalemia Repleted orally and augmented appropriately; K now WNL at 3.6 and additional PO x 1 w/ lasix 40mg PO for edema #Hyperlipidemia Continue atorvastatin 10 mg HS #Anxiety/depression Continue duloxetine 60 mg BID DVT prophylaxis: Lovenox 40 mg Dispo: continued inpatient stay on IV abx for another ~24 hrs, if significant improvement consider dc on Keflex in next 24-48 hrs and blood cxs have been negative Admission and Anticipated Discharge Date Admission Date: February 06, 2025 Supervising Physician Co-Signing Physician Notes The patient was not seen by me. The chart was reviewed. Case discussed with KEN Simmons. Agree with assessment and plan Subjective Eval this morning, less nausea, no further vomiting. Ate some eggs this morning. Cellulitis improving but discussed continued IV abx, no hx MRSA that he is aware of. Does have some increased edema on exam today, discussed ?water pill at baseline. Do not see on medication list, will order lasix PO x 1, monitor response. Possible dc tomorrow. Physical Exam 2 Physical Exam: General: 74yo male sitting up in bed, 2 guards in room HEENT: head atraumatic, normocephalic, mmm Resp: even/unlabored, slight diminished in the bases but no wheezing/rales, 96% on RA CV: NSR on telemetry, no significant m/r/g, 3+ pitting edema to LLE, less on the RLE. Erythema/cellulitis appears improved (see below), pulses present, cap refill acceptable GI: +BS, +distension but soft/nontender MSK/Neuro: nonfocal, moves extremities as able Skin: LLE cellulitis within markings, less warmth/tenderness, IMPROVED from yesterday, no active drainage but does have some scaling/dryness Psych: AOx3, cooperative with exam Results & Data Results & Data Vital Signs (Past 12 Hours) Vital Signs Temp Pulse Pulse Resp BP Pulse Ox O2 Del Method 02/10/25 06:55 85 02/10/25 02:52 36.6 C 90 18 177/94 H 96 Room Air 02/10/25 00:18 90 02/09/25 22:31 36.5 C 84 18 161/80 H 98 Room Air 02/09/25 20:06 36.5 C 88 18 170/90 H 97 Room Air Laboratory Results 02/10/25 05:19 02/10/25 05:19 CRP 16.23 PG Care Time/CCT Total # of Minutes Spent Total Time Spent with Patient: Total time spent is greater than 50% in coordination of care (as documented) at patient's floor/unit and/or counseling patient: Coding Level of Care Code 38872 SUB INP/OBS CARE 350MIN Diagnoses Left leg cellulitis L03.116 Type 2 diabetes mellitus with diabetic polyneuropathy, with long-term current use of insulin E11.42; Z79.4 Diabetes mellitus complication detail: with polyneuropathy Diabetes mellitus complication status: with neurologic complications Diabetes mellitus exterminator helper insulin use: with nursing home use Hyperlipidemia, unspecified hyperlipidemia type E78.5 Hyperlipidemia type: unspecified (2) Diabetes mellitus, type 2 Diabetes mellitus complication detail: with polyneuropathy Diabetes mellitus complication status: with neurologic complications Diabetes mellitus nursing home insulin use: with exterminator helper use Qualified Code(s): E11.42 - Type 2 diabetes mellitus with diabetic polyneuropathy; Z79.4 - termite control representative (current) use of insulin (3) Hyperlipidemia Hyperlipidemia type: unspecified Qualified Code(s): E78.5 - Hyperlipidemia, unspecified
[2025-02-10] MEDS: LANTUS PER UNIT CHARGE SC SCH (08:52)
[2025-02-10] MEDS: POTASSIUM CHLORIDE CRTAB 20 MEQ TABCR PO STA (09:50)
[2025-02-10] MEDS: FUROSEMIDE 40 MG TAB PO ONE (09:51)
[2025-02-10] MEDS: DOCUSATE SODIUM 100 MG CAP PO SCH (11:36)
--- NOTE | 2025-02-11 07:42 | Hospitalist Progress Note ---
Date of Service February 11, 2025 Assessment & Plan (1) Left leg cellulitis: (2) Diabetes mellitus, type 2: (3) Hyperlipidemia: Plan 74 year old gentleman with past medical history of Type 2 diabetes, hyperlipidemia, venous insufficiency, lower extremity edema, depression/anxiety presented to the ED from [facility] on 02/06/2025 with left lower extremity cellulitis, with associated warmth, erythema and edema, and streaking into groin region. Significant leukocytosis w/ WBC 22k, procal 1.6 on admission. Venous Doppler US NEGATIVE for DVT Started on vancomycin and Zosyn on admission. MRSA screen negative. Unfortunately when antibiotics were adjusted by pharmacy on 02/07, the Ancef was not started. Discussed with pharmacy on 02/08 and Ancef was started. #Left leg cellulitis WBC 10.7k, afebrile. CRP 23.36--> 16.23. Blood cultures negative x 5 days. Blood cultures negative x 5 days. Remains on Ancef however and obtained CT for further eval given not much change CT L tib/fib w/ Extensive dermal thickening with subcutaneous edema throughout the lower leg, ankle and imaged hindfoot. Differential considerations include cellulitis, venous stasis or lymphedema but no fluid/abscess noted Does have small fluid collection at knee, will check lyme as well If not having improvement on AM exam, may need to broaden coverage given DM to cover for pseudomonas. No hx MRSA and MRSA screening nares negative Did discuss w/ admitting PA and reports significant improvement compared to admission but was on Vanco/Zosyn Continue elevation, pain control as needed, diuretics ---Lasix 40mg PO x 1 on 02/10, review prior dc summary September was on 2.5mg metolazone and bumex 1mg daily but ECHO w/ LVOT obstruction and were discontinued w/ instruction to take bumex for weight gain and weight 103kg from 98kg at that time and resumed bumex 1mg BID and would avoid further IVF given +JVD on exam Monitor exam/labs on repeat, will monitor procal/inflammatory markers to ensure continued improvement. If improvement w/ diuretics can dc on Keflex but as discussed if worsening will need broader coverage #Nausea/Vomiting New onset nausea with vomiting PM 02/08, resolved with zofran and reported benign abd exam but had been ordered protonix 40mg BID, pepcid BID and IVF @ 125cc/hr Will continue PPI/H2 lisa however tolerating PO and IVF have been DISCONTINUED given volume status KUB not obstruction, moving his bowels Antiemetics available, ?2nd to hepatic congestion/volume overload, monitor response w/ diuretics Edema/weight gain - suspect 2nd to cellulitis above but also recently OFF his metolazone/bumex since September w/ evidence for need for diuretics on exam. Avoid aggressive IVF/bumex resumed as given lasix day prior and will monitor response. Again has LVOT but does have neck vein distension on exam and suspect benefit for edema as well. Monitor response/adjustment as needed #Type 2 DM A1c 6.8, improved from prior 7.8. On Glipizide BID, Glargine 32 units daily as outpatient and pharmacy consulted and managing while inpatient and BSGs have been acceptable #Hypokalemia replaced/normalized and staying replete however will order 20meq w/ bumex BID as above #Hyperlipidemia Continue atorvastatin 10 mg HS #Anxiety/depression Continue duloxetine 60 mg BID DVT prophylaxis: Lovenox 40 mg SQ daily Dispo: continued inpatient stay on IV abx, CT obtained as above. Possible need to escalate abx broader coverage if not improved w/ additional diuretics. Check lyme w/ joint effusion for completeness Admission and Anticipated Discharge Date Admission Date: February 06, 2025 Supervising Physician Co-Signing Physician Notes The patient was not seen by me. The chart was reviewed. Case discussed with KEN Simmons. Agree with assessment and plan Subjective Eval this morning, had some emesis last evening. Discussed diuretics, weight gain and edema. Nausea this morning but no further vomiting. KUB w/o obstruction and reports moving his bowels. +JVD on exam but labs not yet back but discussed he feels full in abdomen and suspect from being off diuretics. Erythema/cellulitis does NOT appear much improved, jessi plan for additional imaging for evaluation. No CP/SOB at this time. Afebrile. Questions/concerns addressed at this time. Physical Exam 2 Physical Exam: General: 74yo male sitting up in bed, 2 guards in room HEENT: head atraumatic, normocephalic, mmm, +hepatojugular reflex Resp: even/unlabored, slight diminished in the bases but no wheezing/rales, 96% on RA CV: NSR on telemetry, no significant m/r/g, 3+ pitting edema to LLE, less on the RLE. Erythema/cellulitis appears UNCHANGED, pulses present but diminished but acceptable cap refill GI: +BS, +distension but soft/nontender MSK/Neuro: nonfocal, moves extremities as able Skin: LLE cellulitis within markings but remains RED/erythematous (unchanged, +warmth), less tenderness/stable, no active drainage. +scaling/dryness Psych: AOx3, cooperative with exam Results & Data Results & Data Vital Signs (Past 12 Hours) Vital Signs Temp Pulse Pulse Resp BP BP Pulse Ox 02/11/25 07:00 83 02/11/25 03:31 36.6 C 97 H 18 158/74 H 92 02/10/25 23:36 36.8 C 90 16 181/86 H 96 02/10/25 22:50 84 02/10/25 20:00 36.6 C 83 18 171/82 H 97 O2 Del Method 02/11/25 07:00 02/11/25 03:31 Room Air 02/10/25 23:36 Room Air 02/10/25 22:50 02/10/25 20:00 Room Air Laboratory Results 02/11/25 10:48 02/11/25 10:48 Mag 1.7 Diagnostic Findings KUB X-Ray 02/11/25 08:38 KUB HISTORY: n/v COMPARISON STUDY: None FINDINGS: 3 supine views of the abdomen are nonspecific. There is no evidence of bowel obstruction. There is no gastric distention. Stool burden is not pronounced. The properitoneal fat lines are maintained. Psoas margins are sharp. There are no concerning calcifications. There is severe degenerative disc disease at L2-3. IMPRESSION: No acute findings in the abdomen. ACT 112: Negative or not required by law. The above report was generated using voice recognition software. It may contain grammatical, syntax or spelling errors. Electronically signed by: Luisana Perera M.D. 02/11/2025 10:[address] 02/11/25 10:42 CT tib/fib LT wo/w con HISTORY: 74 years-old Male cellulitis, worsening, eval deeper infection/other acute soft tissue infection of the left lower leg COMPARISON: None TECHNIQUE: Multiple axial CT images of the left tibia and fibula were obtained with and without IV contrast. A dose lowering technique was used consistent with the principals of VINNIE. FINDINGS: Chondrocalcinosis with severe osteoarthritis of the knee. Moderate osteoarthritis of the ankle and hindfoot. No acute fracture, dislocation or osseous erosion. Moderate to extensive cutaneous thickening with subcutaneous edema. Arterial calcifications. Small joint effusion of the knee with synovial thickening. No discrete fluid collections. Tendons and ligaments are not well seen by CT. IMPRESSION: 1. Extensive dermal thickening with subcutaneous edema throughout the lower leg, ankle and imaged hindfoot. Differential considerations include cellulitis, venous stasis or lymphedema. 2. No discrete fluid collections. 3. No acute osseous abnormality. 4. Severe osteoarthritis of the knee with chondrocalcinosis and joint effusion. ACT 112: Negative or not required by law. The above report was generated using voice recognition software. It may contain grammatical, syntax or spelling errors. Electronically signed by: Aureliano Brambila M.D. 02/11/2025 1:23 PM PG Care Time/CCT Total # of Minutes Spent Total Time Spent with Patient: Total time spent is greater than 50% in coordination of care (as documented) at patient's floor/unit and/or counseling patient: Coding Level of Care Code 01706 SUB INP/OBS CARE 3/50MIN Diagnoses Left leg cellulitis L03.116 Type 2 diabetes mellitus with diabetic polyneuropathy, with long-term current use of insulin E11.42; Z79.4 Diabetes mellitus complication detail: with polyneuropathy Diabetes mellitus complication status: with neurologic complications Diabetes mellitus nursing home insulin use: with intermodal customer service use Hyperlipidemia, unspecified hyperlipidemia type E78.5 Hyperlipidemia type: unspecified (2) Diabetes mellitus, type 2 Diabetes mellitus complication detail: with polyneuropathy Diabetes mellitus complication status: with neurologic complications Diabetes mellitus intermodal customer service insulin use: with intermodal customer service use Qualified Code(s): E11.42 - Type 2 diabetes mellitus with diabetic polyneuropathy; Z79.4 - watermelon inspector (current) use of insulin (3) Hyperlipidemia Hyperlipidemia type: unspecified Qualified Code(s): E78.5 - Hyperlipidemia, unspecified
[2025-02-11] MEDS: ACETAMINOPHEN 325 MG TAB PO PRN (08:39)
[2025-02-11] MEDS: BUMETANIDE 1 MG TAB PO SCH ×2 (09:10→20:51)
--- NOTE | 2025-02-11 10:27 | XRay Report ---
KUB HISTORY: n/v COMPARISON STUDY: None FINDINGS: 3 supine views of the abdomen are nonspecific. There is no evidence of bowel obstruction. T here is no gastric distention. Stool burden is not pronounced. The properitoneal fat lines are mainta ined. Psoas margins are sharp. There are no concerning calcifications. There is severe degenerative d isc disease at L2-3. IMPRESSION: No acute findings in the abdomen. ACT 112: Negative or not required by law. The above report was generated using voice recognition software. It may contain grammatical, syntax o r spelling errors. Electronically signed by: Luisana Perera M.D. 02/11/2025 10:25 AM
--- NOTE | 2025-02-11 11:22 | Pharmacy Report ---
Pharmacy Glycemic Short Note 2 - Date of Service February 11, 2025 - Glycemic Short BSG Results (Last 24 hours): 02/10/25 02/10/25 02/10/25 12:11 17:05 20:21 POC Glucose 137 H 130 H 103 H 02/11/25 08:00 POC Glucose 155 H OUTPATIENT ANTIDIABETIC REGIMEN: * Semglee 32 units SQ daily * glipizide 5mg po BID HBA1c: 7.8% on 09-20-24, updated value ordered for 02/07 ASSESSMENT: 02/11: * Manjit received 30 units of insulin yesterday (20 were basal) * Fasting BSG this AM acceptable, x2 fasting BSGs below goal range, decreased basal insulin by 20%, will continue to monitor * Tightened carbohydrate coverage due to elevated post-prandials, will continue to monitor. He continues on Ancef. 02/09: * Manjit received 37 units of insulin yesterday (25 were basal) * Fasting BSG this AM elevated, yesterday fasting was below goal range, no changes to basal insulin at this time, will continue to trend * No changes to NovoLog at this time, he continues on Ancef. 02/06: * 74year old male admitted today for LLE cellulitis. Pharmacy has been consulted for glycemic management while he is admitted. * BSG was 156mg/dL on admit. A weight based bolus insulin regimen with a stress of ~2 has been ordered. No additional basal insulin will be ordered today, but need will be reassessed tomorrow morning. PLAN FOR INPATIENT GLYCEMIC CONTROL: * Hold outpatient diabetes medications * Basal insulin * Lantus 20 units SQ QAM * Bolus insulin * NovoLog per scale ACHS or Q6hrs while NPO * Goal Range: Low 110 mg/dL - High 140 mg/dL * Correction Factor: 30 mg/dL/unit * Nutritional / Prandial insulin per carb ratio of 1 unit per 9 grams CHO consumed
[2025-02-11 11:31] LABS: Hemoglobin 11.5 g/dl (14.0-18.0); Mean Corpuscular Hemoglobin 27.6 pg (25.0-34.0); Mean Corpuscular Hgb Conc 32.9 g/dL (32.0-36.0); Mean Corpuscular Volume 84.1 fL (80.0-100.0); Mean Platelet Volume 10.8 fL (9.4-12.4); Platelet Count 317 K/uL (130-400); RDW Coefficient of Variation 15.5 % (11.5-14.5); RDW Standard Deviation 47.5 fL (36.4-46.3); Red Blood Count 4.16 M/uL (4.70-6.10); White Blood Count 10.74 K/ul (4.8-10.8)
[2025-02-11 11:47] LABS: BUN Creatinine Ratio 19.1 (10-20); Calcium 8.2 mg/dl (8.6-10.3); Creatinine Clr Calc Pharmacy 84.3 ml/min; Magnesium 1.7 mg/dl (1.7-2.4); Potassium 3.7 mmol/L (3.5-5.1)
[2025-02-11] MEDS: OPTIRAY 320 100ml IV ONE (12:43)
--- NOTE | 2025-02-11 13:24 | CT Scan Report ---
CT tib/fib LT wo/w con HISTORY: 74 years-old Male cellulitis, worsening, eval deeper infection/other acute soft tissue infe ction of the left lower leg COMPARISON: None TECHNIQUE: Multiple axial CT images of the left tibia and fibula were obtained with and without IV co ntrast. A dose lowering technique was used consistent with the principals of VINNIE. FINDINGS: Chondrocalcinosis with severe osteoarthritis of the knee. Moderate osteoarthritis of the ankle and hi ndfoot. No acute fracture, dislocation or osseous erosion. Moderate to extensive cutaneous thickening with subcutaneous edema. Arterial calcifications. Small hugh int effusion of the knee with synovial thickening. No discrete fluid collections. Tendons and ligamen ts are not well seen by CT. IMPRESSION: 1. Extensive dermal thickening with subcutaneous edema throughout the lower leg, ankle and imaged hin dfoot. Differential considerations include cellulitis, venous stasis or lymphedema. 2. No discrete fluid collections. 3. No acute osseous abnormality. 4. Severe osteoarthritis of the knee with chondrocalcinosis and joint effusion. ACT 112: Negative or not required by law. The above report was generated using voice recognition software. It may contain grammatical, syntax o r spelling errors. Electronically signed by: Aureliano Brambila M.D. 02/11/2025 1:23 PM
[2025-02-11] MEDS: POTASSIUM CHLORIDE CRTAB 20 MEQ TABCR PO SCH (18:10)
[2025-02-12 07:24] LABS: Basophils # (auto) 0.03 K/uL (0.00-0.20); Basophils % (auto) 0.3 %; Eosinophils # (auto) 0.22 K/uL (0.00-0.50); Hematocrit (blood only) 35.6 % (42.0-52.0); Hemoglobin 11.7 g/dl (14.0-18.0); Immature Granulocytes % (auto) 0.9 %; Lymphocytes # (auto) 1.02 K/uL (1.20-3.40); Lymphocytes % (auto) 9.5 %; Mean Corpuscular Hemoglobin 27.1 pg (25.0-34.0); Mean Corpuscular Hgb Conc 32.9 g/dL (32.0-36.0); Mean Corpuscular Volume 82.4 fL (80.0-100.0); Mean Platelet Volume 10.6 fL (9.4-12.4); Monocytes # (auto) 0.74 K/uL (0.11-0.59); Monocytes % (auto) 6.9 %; Neutrophils # (auto) 8.66 K/uL (1.40-6.50); Neutrophils % (auto) 80.4 %; Platelet Count 327 K/uL (130-400); RDW Coefficient of Variation 15.8 % (11.5-14.5); RDW Standard Deviation 47.5 fL (36.4-46.3); Red Blood Count 4.32 M/uL (4.70-6.10); White Blood Count 10.77 K/ul (4.8-10.8)
--- NOTE | 2025-02-12 07:41 | Hospitalist Progress Note ---
Date of Service February 12, 2025 Assessment & Plan (1) Left leg cellulitis: (2) Diabetes mellitus, type 2: (3) Hyperlipidemia: Plan 74 year old gentleman with past medical history of Type 2 diabetes, hyperlipidemia, venous insufficiency, lower extremity edema, depression/anxiety presented to the ED from [facility] on 02/06/2025 with left lower extremity cellulitis, with associated warmth, erythema and edema, and streaking into groin region. Significant leukocytosis w/ WBC 22k, procal 1.6 on admission. Venous Doppler US NEGATIVE for DVT Started on vancomycin and Zosyn on admission. MRSA screen negative. Unfortunately when antibiotics were adjusted by pharmacy on 02/07, the Ancef was not started. Discussed with pharmacy on 02/08 and Ancef was started. CT left tib/fib obtained, extensive dermal thickening w/ subcu edema throughout lower leg, ankle, hindfoot. Ddx cellulitis, venous stasis or lymphedema. No fluid/abscess collection noted. Did have SMALL fluid collection at knee (lyme checked, negative) #Left leg cellulitis, lymphedema, venous stasis -stable, slight improvement but ongoing. Remains with redness/erythema but from knee down, no longer w/ extension to the groin Concerns for possible need for escalation in abx but remains within the markings, WBC 10.7k and has been AFEBRILE. Blood cx NGTD x 5 days CRP/procal checked for comparison and are IMPROVING CRP 23.3--> 16.2--> 12.6 Procal 1.9--> 1.5--> now 0.26 Discussed w/ supervising provider and would continue on ANCEF for now Continue elevation, pain control -- gabapentin 100mg PO x 1 and can continue if effective/titrate Mag 1.5, IV replacement ordered. Also suspect could be contributing to the cramping/discomfort as well as fatigue and will monitor. K 3.4, PO ordered w/ bumex use this morning Re diuretics- was placed on bumex 1mg PO BID for weight gain/edema and prior use metolazone/bumex w/ good response and stable renal function. Less hepatojugular reflex on exam and appears DRY today and will place on HOLD and monitor weights/exam. Weight back to 99kg w/ standing scale similar to "dry weight" w/ his mild LVOT obstruction on prior echo Good cap refill but monitor for need for arterial studies. Suspect benefit from outpt vasc f/u for venous ablation at some point for chronic venous stasis PT consult placed while inpatient DVT proph: lovenox SQ Labs/exam in AM #Nausea/Vomiting -resolved -reported 02/08, abd exam reported benign but placed on PPI BID, H2 BID and IVF @ 125cc/hr and was given ~2L IVF w/ hx need for diuretics and +JVD on exam. ?2nd to volume overload/hepatic congestion, worse w/ IVF but improved following diuretics KUB w/o obstruction, +BM Continue PPI/H2 but IVF have been STOPPED, bumex as above and improved/placed on hold as outlined Electrolyte replacement, antiemetics as needed #Type 2 DM- A1c 6.8, improved from prior 7.8. On Glipizide BID, Glargine 32 units daily as outpatient Pharmacy consulted and managing while inpatient and BSGs have been acceptable Continues on cymbalta for anxiety/depression but suspect also for neuropathic pain from DM and have added gabapentin 100mg/monitor response #Hypokalemia , now w/ hypomagnesemia as well replaced/normalized and staying replete 3.4 today w/ bumex use. Mag checked and LOW 1.5. Prior VT in september (none on telemetry) K/Mag IV replacement ordered Monitor levels in AM #Hyperlipidemia - continue atorvastatin 10 mg HS, placed on hold for now to see if any improvement in discomfort DVT proph: Lovenox 40 mg SQ continued Dispo: continued inpatient stay on IV abx, likely need extended course but WBC wnl/afebrile and inflammatory markers trending down and will continue on current course. Cap refill acceptable but can monitor for arterial studies if deemed appropriate. PT consult placed Hopeful dc back to [facility] in next 24-48hr on PO but if any worsening consideration for broader coverage (no hx MRSA noted but prisoner/group living, inc risk, no hx pseudomonas but is DM) Admission and Anticipated Discharge Date Admission Date: February 06, 2025 Supervising Physician Co-Signing Physician Notes The patient was not seen by me. The chart was reviewed. Case discussed with KEN Simmons. Agree with assessment and plan Subjective Eval after lunch, improved appetite w/ diuretics but reports feeling fatigued today, some sharp/shooting nerve type pain -will trial gabapentin PO x w/monitor. WBC stable, erythema within markings but remains red/tender. Inflammatory markers improved. Having wrinkling of the skin/less edema since diuretics as well as weights and slightly dry today, will hold off further diuretics for now but avoid additional IVF for meantime. No CP/SOB. Questions/concerns addressed at this time. Possible dc tomorrow if improvement w/ potential switch in abx . Physical Exam 2 Physical Exam: General: 74yo male sitting up in bed, 2 guards in room, NAD but reports fatigued feeling HEENT: head atraumatic, normocephalic, mmm, +hepatojugular reflex Resp: even/unlabored, slight diminished in the bases but no wheezing/rales, 96% on RA CV: NSR on telemetry, no significant m/r/g, 3+ pitting edema to LLE, less on the RLE. Erythema/cellulitis appears UNCHANGED, pulses present but diminished but acceptable cap refill GI: +BS, +distension but soft/nontender MSK/Neuro: nonfocal, moves extremities as able Skin: LLE cellulitis within markings but remains RED/erythematous (unchanged, +warmth), less tenderness/stable, no active drainage. +scaling/dryness Psych: AOx3, cooperative with exam Results & Data Results & Data Vital Signs (Past 12 Hours) Vital Signs Temp Pulse Pulse Resp BP Pulse Ox O2 Del Method 02/12/25 03:30 36.7 C 98 H 16 160/78 H 95 Room Air 02/11/25 23:37 72 02/11/25 23:21 36.7 C 98 H 16 154/82 H 96 Room Air 02/11/25 19:42 36.5 C 86 16 157/80 H 99 Room Air Laboratory Results 02/12/25 06:51 02/12/25 06:51 PG Care Time/CCT Total # of Minutes Spent Total Time Spent with Patient: Total time spent is greater than 50% in coordination of care (as documented) at patient's floor/unit and/or counseling patient: Coding Level of Care Code 99561 SUB INP/OBS CARE 3/50MIN Diagnoses Left leg cellulitis L03.116 Type 2 diabetes mellitus with diabetic polyneuropathy, with long-term current use of insulin E11.42; Z79.4 Diabetes mellitus complication detail: with polyneuropathy Diabetes mellitus complication status: with neurologic complications Diabetes mellitus long term care social worker insulin use: with long term care social worker use Hyperlipidemia, unspecified hyperlipidemia type E78.5 Hyperlipidemia type: unspecified (2) Diabetes mellitus, type 2 Diabetes mellitus complication detail: with polyneuropathy Diabetes mellitus complication status: with neurologic complications Diabetes mellitus assisted insulin use: with long term care social worker use Qualified Code(s): E11.42 - Type 2 diabetes mellitus with diabetic polyneuropathy; Z79.4 - lobsterman (current) use of insulin (3) Hyperlipidemia Hyperlipidemia type: unspecified Qualified Code(s): E78.5 - Hyperlipidemia, unspecified
[2025-02-12 07:46] LABS: Albumin Globulin Ratio 0.7 (0.9-2); Albumin Level 2.7 gm/dl (3.4-5.0); BUN Creatinine Ratio 14.7 (10-20); Bilirubin,Total 0.5 mg/dl (0.2-1.0); C Reactive Protein 12.62 mg/dl (0-0.5); Calcium 8.1 mg/dl (8.6-10.3); Creatinine Clr Calc Pharmacy 81.7 ml/min; Globulin 3.9 gm/dl (2.5-4.0); Magnesium 1.5 mg/dl (1.7-2.4); Potassium 3.4 mmol/L (3.5-5.1); Total Protein 6.6 gm/dl (6.0-8.3)
[2025-02-12] MEDS: POTASSIUM CHLORIDE CRTAB 20 MEQ TABCR PO STA (08:14)
[2025-02-12] MEDS: MAGNESIUM SULFATE / D5W 1 GM/100 ML BAG IV SCH (08:14)
[2025-02-12] MEDS: LANTUS PER UNIT CHARGE SC SCH (09:15)
[2025-02-12] MEDS: GABAPENTIN 100 MG CAP PO SCH (15:06)
[2025-02-13 07:28] LABS: Basophils # (auto) 0.03 K/uL (0.00-0.20); Basophils % (auto) 0.3 %; Eosinophils # (auto) 0.29 K/uL (0.00-0.50); Eosinophils % (auto) 2.9 %; Hematocrit (blood only) 36.7 % (42.0-52.0); Hemoglobin 12.2 g/dl (14.0-18.0); Immature Granulocytes # (auto) 0.07 K/uL (0.01-0.20); Immature Granulocytes % (auto) 0.7 %; Lymphocytes # (auto) 1.11 K/uL (1.20-3.40); Lymphocytes % (auto) 11.1 %; Mean Corpuscular Hemoglobin 27.6 pg (25.0-34.0); Mean Corpuscular Hgb Conc 33.2 g/dL (32.0-36.0); Mean Platelet Volume 10.7 fL (9.4-12.4); Monocytes # (auto) 0.83 K/uL (0.11-0.59); Monocytes % (auto) 8.3 %; Neutrophils # (auto) 7.67 K/uL (1.40-6.50); Neutrophils % (auto) 76.7 %; Platelet Count 339 K/uL (130-400); RDW Coefficient of Variation 15.5 % (11.5-14.5); RDW Standard Deviation 46.6 fL (36.4-46.3); Red Blood Count 4.42 M/uL (4.70-6.10)
--- NOTE | 2025-02-13 07:44 | Hospitalist Progress Note ---
Date of Service February 13, 2025 Assessment & Plan (1) Left leg cellulitis: (2) Diabetes mellitus, type 2: (3) Hyperlipidemia: Plan 74 year old gentleman with past medical history of Type 2 diabetes, hyperlipidemia, venous insufficiency, lower extremity edema, depression/anxiety presented to the ED from [facility] [place] on 02/06/2025 with left lower extremity cellulitis, with associated warmth, erythema and edema, and streaking into groin region. Significant leukocytosis w/ WBC 22k, procal 1.6 on admission. Venous Doppler US NEGATIVE for DVT Started on vancomycin and Zosyn on admission. MRSA screen negative. Unfortunately when antibiotics were adjusted by pharmacy on 02/07, the Ancef was not started. Discussed with pharmacy on 02/08 and Ancef was started. CT left tib/fib obtained, extensive dermal thickening w/ subcu edema throughout lower leg, ankle, hindfoot. Ddx cellulitis, venous stasis or lymphedema. No fluid/abscess collection noted. Did have SMALL fluid collection at knee (lyme checked, negative) #Left leg cellulitis, lymphedema, venous stasis -stable, slight improvement but ongoing. Remains with redness/erythema but from knee down, no longer w/ extension to the groin and slightly better 5/2 WBC stable 10k, afebrile. CRP/procal prior noted trending down, CRP 23--> 12.6. Procal 1.9--> 0.26 Possible may have just needed extended course IV abx initially, day 7 ancef given gap and if continue improvement can transition to keflex and plan for 14 day course Bumex 1mg BID stopped given weight back ~ baseline, slightly dry. Edema MUCH improved. Wound RN consulted/amlactin cream to be provided Continue elevation, pain control. Gabapentin 100mg daily added w/ improvement PT consult pending DVT proph: lovenox SQ Hopeful dc 5/3 on PO Keflex to complete course #Nausea/Vomiting - occured 02/08 w/ vomiting. ~2L IVF provided but appeared overloaded on exam and bumex BID until back to baseline w/ improvement and continued on PPI/H2 No vomiting reported, but poor appetitie/nausea and DIARRHEA ON ABX HOLD FURTHER PPI given new med/can cause cdiff Continue pepcid BID for now, zofran available CHECK CDIFF #Type 2 DM- A1c 6.8, improved from prior 7.8. On Glipizide BID, Glargine 32 units daily as outpatient which have been held and pharmacy managing, BSGs stable Continue cymbalta, added gabapentin for pain control w/ good results #Hypokalemia , now w/ hypomagnesemia as well replaced/normalized however low likely from bumex use and 20meq daily continued. Mag stable/improved to 1.9 (Hx VT in september, non on telemetry). Bumex on hold and monitor BMP AM for stability *If needs prn bumex at dc should have prn mag/K given hx in past #Hyperlipidemia - continue atorvastatin 10 mg HS, placed on hold for now to see if any improvement in discomfort and edema improved DVT proph: Lovenox 40 mg SQ continued Dispo: continued inpatient stay on Ancef, likely needed extended IV abx given severity of cellulitis. Possible transition to PO in am and dc w/ plan 10-14 day course Monitor for prn bumex, check cdiff given loose stools/nausea on abx. Amlactin BID for dry skin as using at [facility], wound RN consult placed Consider outpt ref for ablation studies Admission and Anticipated Discharge Date Admission Date: February 06, 2025 Supervising Physician Co-Signing Physician Notes The patient was not seen by me. The chart was reviewed. Case discussed with KEN Simmons. Agree with assessment and plan Subjective Eval this afternoon, pain stable w/ gabapentin, does not feel needs increase. Ongoing nausea/poor appetitie but no overt abd pain. Endorses liquid diarrhea/mucus appearance. RN to collect cdiff w/ next sample. Leg w slight improvement in edema/erythema, much improved as far as edema however. Typically uses ammonium lactate BID -- has been using moisurizer per nursing Will order amlactin, wound RN consult Discussed continued IV abx for infection and WBC improved and will continue current ancef for now. Possible transition to keflex tomorrow if continued improvement Bumex on hold, volume status acceptable. No CP/SOB at this time, only nausea but again no vomiting or abd pain but diarrhea as discussed. Physical Exam Physical Exam: General: 74yo male sitting up in bed, 2 guards in room, NAD but reports fatigued feeling HEENT: head atraumatic, normocephalic, mmm, +hepatojugular reflex Resp: even/unlabored, slight diminished in the bases but no wheezing/rales, 96% on RA CV: NSR on telemetry, no significant m/r/g, 3+ pitting edema to LLE, less on the RLE. Erythema/cellulitis appears UNCHANGED, pulses present but diminished but acceptable cap refill GI: +BS, +distension but soft/nontender MSK/Neuro: nonfocal, moves extremities as able Skin: LLE cellulitis within markings but remains RED/erythematous (EDEMA IMPROVED, erythema slightly improved) nchanged, +warmth), less tenderness/stable, no active drainage. +scaling/dryness Psych: AOx3, cooperative with exam Results & Data Results & Data Vital Signs (Past 12 Hours) Vital Signs Temp Pulse Pulse Resp BP Pulse Ox O2 Del Method 02/13/25 07:00 101 H 02/13/25 03:50 36.9 C 104 H 16 144/78 H 96 Room Air 02/13/25 00:05 36.7 C 103 H 18 156/88 H 94 Room Air 02/12/25 21:44 102 H PG Care Time/CCT Total # of Minutes Spent Total Time Spent with Patient: Total time spent is greater than 50% in coordination of care (as documented) at patient's floor/unit and/or counseling patient: Coding Level of Care Code 02634 SUB INP/OBS CARE 3/50MIN Diagnoses Left leg cellulitis L03.116 Type 2 diabetes mellitus with diabetic polyneuropathy, with long-term current use of insulin E11.42; Z79.4 Diabetes mellitus complication detail: with polyneuropathy Diabetes mellitus complication status: with neurologic complications Diabetes mellitus museum technician insulin use: with long-term use Hyperlipidemia, unspecified hyperlipidemia type E78.5 Hyperlipidemia type: unspecified (2) Diabetes mellitus, type 2 Diabetes mellitus complication detail: with polyneuropathy Diabetes mellitus complication status: with neurologic complications Diabetes mellitus museum technician insulin use: with museum technician use Qualified Code(s): E11.42 - Type 2 diabetes mellitus with diabetic polyneuropathy; Z79.4 - die repairer trimmer dies (current) use of insulin (3) Hyperlipidemia Hyperlipidemia type: unspecified Qualified Code(s): E78.5 - Hyperlipidemia, unspecified
[2025-02-13 07:56] LABS: BUN Creatinine Ratio 15.6 (10-20); Calcium 8.1 mg/dl (8.6-10.3); Creatinine Clr Calc Pharmacy 80.5 ml/min; Magnesium 1.9 mg/dl (1.7-2.4); Potassium 3.4 mmol/L (3.5-5.1)
--- NOTE | 2025-02-13 12:22 | Pharmacy Report ---
Pharmacy Glycemic Short Note 2 - Date of Service February 13, 2025 - Glycemic Short BSG Results (Last 24 hours): 02/12/25 02/12/25 02/13/25 16:45 20:14 06:48 Glucose 141 H POC Glucose 164 H 137 H 02/13/25 02/13/25 08:00 12:11 Glucose POC Glucose 135 H 120 H OUTPATIENT ANTIDIABETIC REGIMEN: * Semglee 32 units SQ daily * glipizide 5mg po BID HBA1c: 7.8% on 09-20-24, updated value ordered for 02/07 ASSESSMENT: 02/13: * Patient received a total of 21 units of insulin yesterday (18 units were basal and 3 units were bolus). * Lantus was decreased to 18 units yesterday as his BSG was dropping below the goal range in the evening. BSG last evening was 137mg/dL. * Fasting BSG was in goal range this morning. Basal and bolus insulin regimens will be continued without change. 02/11: * Manjit received 30 units of insulin yesterday (20 were basal) * Fasting BSG this AM acceptable, x2 fasting BSGs below goal range, decreased basal insulin by 20%, will continue to monitor * Tightened carbohydrate coverage due to elevated post-prandials, will continue to monitor. He continues on Ancef. 02/09: * Manjit received 37 units of insulin yesterday (25 were basal) * Fasting BSG this AM elevated, yesterday fasting was below goal range, no changes to basal insulin at this time, will continue to trend * No changes to NovoLog at this time, he continues on Ancef. 02/06: * 74year old male admitted today for LLE cellulitis. Pharmacy has been consulted for glycemic management while he is admitted. * BSG was 156mg/dL on admit. A weight based bolus insulin regimen with a stress of ~2 has been ordered. No additional basal insulin will be ordered today, but need will be reassessed tomorrow morning. PLAN FOR INPATIENT GLYCEMIC CONTROL: * Hold outpatient diabetes medications * Basal insulin * Lantus 18 units SQ QAM * Bolus insulin * NovoLog per scale ACHS or Q6hrs while NPO * Goal Range: Low 110 mg/dL - High 140 mg/dL * Correction Factor: 30 mg/dL/unit * Nutritional / Prandial insulin per carb ratio of 1 unit per 9 grams CHO consumed
[2025-02-13] MEDS: FAMOTIDINE 20 MG TAB PO SCH (21:25)
[2025-02-13] MEDS: AMMONIUM LACTATE 12% LOTION 225 GM BTL EXT SCH (23:39)
[2025-02-14 07:25] LABS: Basophils # (auto) 0.04 K/uL (0.00-0.20); Basophils % (auto) 0.5 %; Eosinophils # (auto) 0.34 K/uL (0.00-0.50); Eosinophils % (auto) 4.2 %; Hematocrit (blood only) 36.1 % (42.0-52.0); Hemoglobin 11.7 g/dl (14.0-18.0); Immature Granulocytes # (auto) 0.06 K/uL (0.01-0.20); Immature Granulocytes % (auto) 0.7 %; Lymphocytes # (auto) 1.09 K/uL (1.20-3.40); Lymphocytes % (auto) 13.5 %; Mean Corpuscular Hemoglobin 27.4 pg (25.0-34.0); Mean Corpuscular Hgb Conc 32.4 g/dL (32.0-36.0); Mean Corpuscular Volume 84.5 fL (80.0-100.0); Mean Platelet Volume 10.6 fL (9.4-12.4); Monocytes # (auto) 0.69 K/uL (0.11-0.59); Monocytes % (auto) 8.5 %; Neutrophils # (auto) 5.86 K/uL (1.40-6.50); Neutrophils % (auto) 72.6 %; Platelet Count 339 K/uL (130-400); RDW Coefficient of Variation 15.7 % (11.5-14.5); RDW Standard Deviation 47.9 fL (36.4-46.3); Red Blood Count 4.27 M/uL (4.70-6.10); White Blood Count 8.08 K/ul (4.8-10.8)
--- NOTE | 2025-02-14 07:43 | Hospitalist Progress Note ---
Date of Service February 14, 2025 Assessment & Plan (1) Left leg cellulitis: (2) Diabetes mellitus, type 2: (3) Hyperlipidemia: Plan 74 year old gentleman with past medical history of Type 2 diabetes, hyperlipidemia, venous insufficiency, lower extremity edema, depression/anxiety presented to the ED from [facility] [place] on 02/06/2025 with left lower extremity cellulitis, with associated warmth, erythema and edema, and streaking into groin region. Significant leukocytosis w/ WBC 22k, procal 1.6 on admission. Venous Doppler US NEGATIVE for DVT Started on vancomycin and Zosyn on admission. MRSA screen negative. Unfortunately when antibiotics were adjusted by pharmacy on 02/07, the Ancef was not started. Discussed with pharmacy on 02/08 and Ancef was started. CT left tib/fib obtained, extensive dermal thickening w/ subcu edema throughout lower leg, ankle, hindfoot. Ddx cellulitis, venous stasis or lymphedema. No fluid/abscess collection noted. Did have SMALL fluid collection at knee (lyme checked, negative) #Left leg cellulitis, lymphedema, venous stasis -stable, slight improvement but ongoing and suspect need for extended course IV abx prior to de-escalation given severity of cellulitis to groin, now from mid yost to foot Ancef IV (day 7) WBC 8k, wnl, afebrile CRP/procal decreased prior, will ensure CRP continued improvement in AM Ancef to be converted to KEFLEX 500mg QID for 02/14 given SIGNIFICANT improvement in edema/erythema today - would plan for 10-14 day course, more likely 14 given severity Cdiff w/ next BM, PPI discontinued. Nausea improved. Amlactin BID to legs, improved, continue Continue elevation, pain control - gabapentin 100mg w/ good results DVT proph: lovenox SQ Hopeful dc 02/15 if continued improvement w/ switch to PO abx #Nausea/Vomiting vomiting 02/08, 02/10 w/ reported benign abx exam but PPI BID/pepcid BID and IVF x 2L provided but appeared volume overloaed (see prior note) and bumex BID and back to baseline/dry prior and on hold PPI stopped, pepcid continued w/ zofran prn for nausea but w/ diarrhea checking cdiff. No abd pain/WBC improved and no fever and ?2nd to infection above and improved w/ continued tx Monitor for any recurrence/worsening #Type 2 DM- A1c 6.8, improved from prior 7.8. On Glipizide BID, Glargine 32 units daily as outpatient which have been held and pharmacy managing, BSGs stable Continue Cymbalta, added gabapentin for pain control w/ good results #Hypokalemia , now w/ hypomagnesemia as well replaced/normalized however again low 2nd to bumex use for overload and now on hold. K 3.6 and provided 20meq for today but will hold maría elena given no maría elena bumex at this time. Mag improved/stable 1.9 (hx VT last year, see prior note). Utilize bumex as needed and should have prn mag/K as rec in past if uses #Hyperlipidemia - atorvastatin placed on hold to see if improvement -- improved. CK checked/not elevated. Will hold for now/can resume at dc DVT proph: Lovenox 40 mg SQ continued Dispo: continued inpatient stay and monitoring for conitnued stability w/ de- escalation to PO abx. If continued improvement can plan to dc in AM 5/4 on continued keflex to complete course consideration for outpt ablation procedure in future for venous stasis, wound care and would continue amlactin BID Admission and Anticipated Discharge Date Admission Date: February 06, 2025 Supervising Physician Co-Signing Physician Notes The patient was not seen by me. The chart was reviewed. Case discussed with KEN Simmons. Agree with assessment and plan Subjective Eval this morning, cellulitis/edema much improved. Discussed switching to oral antibiotics. Some nausea but no vomiting. Ate eggs/toast but not rodriguez this morning. Protonix stopped but pepcid continued. Discussed if improvement w/ switch to oral will plan for 10-14 day course oral at dc and can dc in AM. Pain stable w/ gabapentin. Questions/concerns addressed at this time. Physical Exam 2 Physical Exam: General: 74yo male sitting up in bed, 2 guards in room, NAD, appears improved HEENT: head atraumatic, normocephalic, mmm Resp: even/unlabored, no wheezing, diminished in bases, on room air CV: NSR on telemetry, no significant m/r/g, DECREASED edema b/l LE, pulses present/cap refill wnl GI: +BS, slight distension but soft/nontender, no guarding/rebound MSK/Neuro: nonfocal, moves extremities as able Skin: LLE cellulitis/erythema DECREASED, receding from markings, no active drainage, +tenderness (decreased), +pulses/cap refill acceptable <3 seconds, improvement in scaly/dry w/ amlactin Psych: AOx3, cooperative with exam Results & Data Results & Data Vital Signs (Past 12 Hours) Vital Signs Temp Pulse Pulse Resp BP Pulse Ox O2 Del Method 02/14/25 07:40 36.6 C 92 H 18 144/77 H 95 Room Air 02/14/25 07:00 93 H 02/14/25 03:42 36.5 C 99 H 18 132/74 95 Room Air 02/13/25 23:41 36.7 C 98 H 18 145/79 H 96 Room Air 02/13/25 21:59 95 H Laboratory Results 02/14/25 06:57 02/14/25 06:57 PG Care Time/CCT Total # of Minutes Spent Total Time Spent with Patient: Total time spent is greater than 50% in coordination of care (as documented) at patient's floor/unit and/or counseling patient: Coding Level of Care Code 48784 SUB INP/OBS CARE 3/50MIN Diagnoses Left leg cellulitis L03.116 Type 2 diabetes mellitus with diabetic polyneuropathy, with long-term current use of insulin E11.42; Z79.4 Diabetes mellitus complication detail: with polyneuropathy Diabetes mellitus complication status: with neurologic complications Diabetes mellitus fci insulin use: with fci use Hyperlipidemia, unspecified hyperlipidemia type E78.5 Hyperlipidemia type: unspecified (2) Diabetes mellitus, type 2 Diabetes mellitus complication detail: with polyneuropathy Diabetes mellitus complication status: with neurologic complications Diabetes mellitus emt intermediate insulin use: with emt intermediate use Qualified Code(s): E11.42 - Type 2 diabetes mellitus with diabetic polyneuropathy; Z79.4 - [facility] (current) use of insulin (3) Hyperlipidemia Hyperlipidemia type: unspecified Qualified Code(s): E78.5 - Hyperlipidemia, unspecified
[2025-02-14 07:49] LABS: BUN Creatinine Ratio 17.5 (10-20); Calcium 8.2 mg/dl (8.6-10.3); Creatinine Clr Calc Pharmacy 75.3 ml/min; Magnesium 1.9 mg/dl (1.7-2.4); Potassium 3.6 mmol/L (3.5-5.1)
[2025-02-14] MEDS: LANTUS PER UNIT CHARGE SC SCH (09:33)
[2025-02-14 09:37] LABS: Thyroid Stimulating Hormone 2.49 uIu/ml (0.300-4.500)
[2025-02-14] MEDS: cephALEXin 500 MG CAP PO SCH (11:59)
[2025-02-15 07:02] LABS: Hematocrit (blood only) 36.7 % (42.0-52.0); Mean Corpuscular Hemoglobin 27.5 pg (25.0-34.0); Mean Corpuscular Hgb Conc 32.7 g/dL (32.0-36.0); Mean Corpuscular Volume 84.2 fL (80.0-100.0); Mean Platelet Volume 10.5 fL (9.4-12.4); Platelet Count 344 K/uL (130-400); RDW Coefficient of Variation 15.8 % (11.5-14.5); RDW Standard Deviation 48.3 fL (36.4-46.3); Red Blood Count 4.36 M/uL (4.70-6.10); White Blood Count 9.52 K/ul (4.8-10.8)
[2025-02-15 07:23] VITALS: RESP 18
[2025-02-15 07:30] LABS: BUN Creatinine Ratio 17.2 (10-20); C Reactive Protein 11.91 mg/dl (0-0.5); Calcium 8.3 mg/dl (8.6-10.3); Creatinine Clr Calc Pharmacy 83.4 ml/min; Magnesium 1.8 mg/dl (1.7-2.4); Potassium 4.1 mmol/L (3.5-5.1)
--- NOTE | 2025-02-15 07:35 | Hospitalist Progress Note ---
Date of Service February 15, 2025 Assessment & Plan (1) Left leg cellulitis: (2) Diabetes mellitus, type 2: (3) Hyperlipidemia: Plan 74 year old gentleman with past medical history of Type 2 diabetes, hyperlipidemia, venous insufficiency, lower extremity edema, depression/anxiety presented to the ED from [facility] [place] on 02/06/2025 with left lower extremity cellulitis, with associated warmth, erythema and edema, and streaking into groin region. Significant leukocytosis w/ WBC 22k, procal 1.6 on admission. Venous Doppler US NEGATIVE for DVT Started on vancomycin and Zosyn on admission. MRSA screen negative. Unfortunately when antibiotics were adjusted by pharmacy on 02/07, the Ancef was not started. Discussed with pharmacy on 02/08 and Ancef was started. CT left tib/fib obtained, extensive dermal thickening w/ subcu edema throughout lower leg, ankle, hindfoot. Ddx cellulitis, venous stasis or lymphedema. No fluid/abscess collection noted. Did have SMALL fluid collection at knee (lyme checked, negative) #Left leg cellulitis, lymphedema, venous stasis -stable, slight improvement but ongoing and suspect need for extended course IV abx prior to de-escalation given severity of cellulitis to groin, now from mid yost to foot Ancef IV (day 7) WBC 8k, wnl, afebrile CRP/procal decreased prior, will ensure CRP continued improvement in AM Ancef to be converted to KEFLEX 500mg QID for / given SIGNIFICANT improvement in edema/erythema today - would plan for 10-14 day course, more likely 14 given severity Cdiff w/ next BM, PPI discontinued. Nausea improved. Amlactin BID to legs, improved, continue Continue elevation, pain control - gabapentin 100mg w/ good results DVT proph: lovenox SQ Hopeful dc 02/15 if continued improvement w/ switch to PO abx Call to residential provider for sign out however being told they left for day already by 11am but attempting to reach someone if able to give sign out. Possible issues w/ ordering meds in and may req staying until tomorrow if not able to give medical provider sign out. #Nausea/Vomiting vomiting 02/08, 02/10 w/ reported benign abx exam but PPI BID/pepcid BID and IVF x 2L provided but appeared volume overloaed (see prior note) and bumex BID and back to baseline/dry prior and on hold PPI stopped, pepcid continued w/ zofran prn for nausea but w/ diarrhea checking cdiff. No abd pain/WBC improved and no fever and ?2nd to infection above and improved w/ continued tx Monitor for any recurrence/worsening #Type 2 DM- A1c 6.8, improved from prior 7.8. On Glipizide BID, Glargine 32 units daily as outpatient which have been held and pharmacy managing, BSGs stable Continue Cymbalta, added gabapentin for pain control w/ good results #Hypokalemia , now w/ hypomagnesemia as well replaced/normalized however again low 2nd to bumex use for overload and now on hold. K 3.6 and provided 20meq for today but will hold maría elena given no maría elena bumex at this time. Mag improved/stable 1.9 (hx VT last year, see prior note). Utilize bumex as needed and should have prn mag/K as rec in past if uses #Hyperlipidemia Atorvastatin placed on hold to see if improvement -- improved. CK checked/not elevated. Will hold for now/can resume at dc. DVT proph: Lovenox 40 mg SQ continued Dispo: continued inpatient stay and monitoring for continued stability w/ de- escalation to PO abx. If continued improvement can plan to dc in AM 5/4 on continued keflex to complete course consideration for outpt ablation procedure in future for venous stasis, wound care and would continue amlactin BID Admission and Anticipated Discharge Date Admission Date: February 06, 2025 Subjective Eval this morning, MUCH improved w/ switch to PO. No further diarrhea. Nursing to get hot soup for lunch (on safe tray, prior issues). Diet stable, WBC wnl and stable for dc. Physical Exam Physical Exam: General: 74yo male sitting up in bed, 2 guards in room, NAD, appears improved HEENT: head atraumatic, normocephalic, mmm Resp: even/unlabored, no wheezing, diminished in bases, on room air CV: NSR on telemetry, no significant m/r/g, DECREASED edema b/l LE, pulses present/cap refill wnl GI: +BS, slight distension but soft/nontender, no guarding/rebound MSK/Neuro: nonfocal, moves extremities as able Skin: LLE cellulitis/erythema DECREASED, receding from markings, no active drainage, +tenderness (decreased), +pulses/cap refill acceptable <3 seconds, improvement in scaly/dry w/ amlactin Psych: AOx3, cooperative with exam Results & Data Results & Data Vital Signs (Past 12 Hours) Vital Signs Temp Pulse Pulse Resp BP Pulse Ox O2 Del Method 02/15/25 07:22 36.6 C 88 18 145/82 H 91 Room Air 02/15/25 07:00 91 H 02/15/25 04:37 36.8 C 92 H 16 152/83 H 95 Room Air 02/14/25 22:55 36.6 C 94 H 16 131/70 95 Room Air 02/14/25 21:39 95 H PG Care Time/CCT Total # of Minutes Spent Total Time Spent with Patient: Total time spent is greater than 50% in coordination of care (as documented) at patient's floor/unit and/or counseling patient: Coding Diagnoses Left leg cellulitis L03.116 Type 2 diabetes mellitus with diabetic polyneuropathy, with long-term current use of insulin E11.42; Z79.4 Diabetes mellitus complication detail: with polyneuropathy Diabetes mellitus complication status: with neurologic complications Diabetes mellitus medical terminologist insulin use: with medical terminologist use Hyperlipidemia, unspecified hyperlipidemia type E78.5 Hyperlipidemia type: unspecified (2) Diabetes mellitus, type 2 Diabetes mellitus complication detail: with polyneuropathy Diabetes mellitus complication status: with neurologic complications Diabetes mellitus medical terminologist insulin use: with nursing home use Qualified Code(s): E11.42 - Type 2 diabetes mellitus with diabetic polyneuropathy; Z79.4 - care home (current) use of insulin (3) Hyperlipidemia Hyperlipidemia type: unspecified Qualified Code(s): E78.5 - Hyperlipidemia, unspecified
--- NOTE | 2025-02-15 08:37 | XRay Report ---
HISTORY: Congestive heart failure nausea. TECHNIQUE: Portable AP radiograph of the chest. COMPARISON: Chest CT dated 09/19/2024. Chest radiograph dated 09/19/2024. FINDINGS: Mild cardiomegaly with pulmonary vascular congestion. No alfredo pulmonary edema. No focal lung consolidation. No pneumothorax or pleural effusion. Degenerative changes of the shoulders and spine. Included upper abdomen is unremarkable. IMPRESSION: * Cardiomegaly with mild vascular congestion could represent early CHF. No alfredo pulmonary edema. * No focal consolidation, significant pleural effusion, or pneumothorax. Electronically signed by Sherwin Moreno 02-15-2025 08:37 AM
[2025-02-15] MEDS: LANTUS PER UNIT CHARGE SC SCH (09:37)
--- NOTE | 2025-02-15 10:52 | Discharge Summary ---
Discharge Summary Date of Service February 15, 2025 Principal Dx & Hospital Course #1 = Principal Diagnosis (1) Left leg cellulitis: (2) Diabetes mellitus, type 2: (3) Hyperlipidemia: Plan 74 year old gentleman with past medical history of Type 2 diabetes, hyperlipidemia, venous insufficiency, lower extremity edema, depression/anxiety presented to the ED from [facility] on 02/06/2025 with left lower extremity cellulitis, with associated warmth, erythema and edema, and streaking into groin region. #Left leg cellulitis, lymphedema/venous stasis -- SEVERE, w/ streaking up to groin on admission in patient w/ DM however no evidence for harrison's gangrene/gangrene. WBC 22k w/ procal 1.6 on admission. CRP 23.3 Blood cx obtained Venous doppler negative for DVT. Placed on Vanco/Zosyn, MRSA nares negative. CT tib/tib w/ extensive dermal thickening w/ subcu edema throughout lower leg, ankle, hindfoot. Ddx cellulitis, venous stasis or lymphedema. No fluid/abscess collection noted. Did have SMALL fluid collection at knee (lyme checked, negative) De-escalated to Ancef but suspected needed extended IV given severity and continued Ancef from 02/08- 02/14 and de-escalated to KEFLEX 500mg QID to complete 14 day course. WBC wnl, afebrile and blood cx NGTD x 5 days Notable did given several doses of bumex for weight gain/edema with IMPROVEMENT however dry following/held at dc however may benefit from 1-2x/wk benefit (would use mag/K w/use as discussed w/ fpc provider given hx mild LVOT on prior ECHO) Rec continue elevation, AmLactin BID, wound care and consider ablation in future. Rx gabapentin 100mg for pain and MUCH IMPROVED ON EXAM. To montior for any continued diarrhea on abx and would check cdiff. CRP, procal trended down on repeat testing --> 11.9, 0.26 DVT proph: Lovenox SQ while inpatient #Type 2 DM- A1c 6.8, improved from prior 7.8. Pharmacy consulted while inpatient and BSG AC/HS w/ SSI and continued on cymbalta for neuropathy, added gabapentin 100mg once daily. Resume home meds at dc/monitor blood sugars #Hypokalemia, Hypomag - suspect 2nd to bumex use, now on hold but as above consider 1-2x/daily. As discussed w/ medical provider should get mag/potassium if using bumex and consider as needed as prior recommended #N/v- prior, IVF x 2L provided but suspect med related/infection. IVF stopped and bumex provided w/ improvent. PO intake improved but issues w/ not getting hot items like soup w/ safe tray and has been removed. Stopped PPI given new med and abd w/o pain, KUB w/o constipation. Can continue pepcid BID but improved w/ tx infection above. #Hyperlipidemia - atorvastatin continued but held temp, CK not elevated and can resume at dc DVT proph: Lovenox 40 mg SQ while inpatient Notes For Next Care Provider Monitor for diarrhea on abx Consider bumex 2-3x/wk for volume status, suspect some n/v from hepatic congestion but improved w/ use but held at dc temp given significant improvement in edema for now Consider vascular for ablation, resumption compression once infection heals Consider probiotic Medication Changes From Visit Keflex 500mg QID x 14 day total course Gabapentin 100mg daily Pepcid BID Bumex 1mg prn Admission HPI Per Admitting Provider This is a 74 year old gentleman with past medical history of Type 2 diabetes, lower extremity edema who presented to the emergency department from [facility], [place] on 02/06/2025 with left lower extremity cellulitis. The patient was seen and examined. Correction guards present. He states that this morning he took his compression stocking off and noticed that his left lower leg was severely swollen and red. He also states that it was painful and tender to touch. He went to the [facility] at the present and the nurse had recommended that he report to the ER for further evaluation. He states that about 6 to 7 months ago he had a similar issue with his left lower leg and was treated for course of cellulitis. Prior to this he had been doing well. He denies any fevers or chills recently. He states that he does have lower extremity edema baseline but his left leg is more swollen than usual. He denies any nausea, vomiting, chest pain, shortness of breath, changes in bowel habits. He denies any urinary complaints. While in the emergency department he was found to have leukocytosis with a WBC of 22.89. His sodium was mildly low at 133, creatinine WNL. His total bilirubin was mildly elevated at 1.3, AST mildly elevated at 41. Procalcitonin elevated at 1.69. MRSA screen was pending. Blood cultures were obtained and pending. Left lower extremity DVT ordered and pending. He was given Vancomycin and Zosyn in the ED. Admission Exam Per Admitting Provider Constitutional: WD/WN, vitals as above Eyes: PERRL, conjunctivae normal, anicteric sclerae ENMT: external ear and nose normal, oropharynx normal Respiratory: normal respiratory effort, lungs clear to auscultation Cardiovascular: RRR, no murmur, no edema Gastrointestinal (Abdomen): normal bowel sounds, soft, nontender, no hepatosplenomegaly Skin: +erythema, warmth, edema to LLE. Erythem a streaking on interior of leg up to groin. No erythema noted in region/abdomen. Neurologic: PERRL, EOMI, accommodation nl, no face palsy, no dysarthria Psychiatric: A+Ox3, euthymic affect Discharge Exam General: 74yo male sitting up in bed, 2 guards in room, NAD, appears improved HEENT: head atraumatic, normocephalic, mmm Resp: even/unlabored, slight diminished in the bases but no wheezing, on room air CV: NSR on telemetry, no significant m/r/g, DECREASED edema b/l LE, pulses pre sent/cap refill wnl GI: +BS, slight distension but soft/nontender, no guarding/rebound MSK/Neuro: nonfocal, moves extremities as able Skin: LLE cellulitis/erythema MUCH DECREASED/improved, mid yost down, less tender, cap refill wnl, pulses present. skin less dry/flaky Psych: AOx3, cooperative with exam Discharge Plan Discharge Items Patient Disposition: [facility] Reason For Visit: LEFT LEG CELLULITIS Discharge Diagnosis: Left Leg Cellulitis Condition on Discharge: Fair Goals: You have been hospitalized for an acute medical problem. During your stay at [facility], we have made an effort to correct the problem that brought you to the hospital while keeping you as comfortable as possible. Medications were used to bring your condition under control and your discharge instructions will include directions for any medications you should take after leaving the hospital. Please make sure you see your Primary Care Provider as part of your follow up plan. Activity: As commented below Non-emergency contact: Primary Care Provider Call non-emergency contact if: you have any medication questions, your symptoms worsen, your pain is not controlled and your pain is worsening Follow-up/Referrals: [facility] LEVINE [Primary Care Provider] - Diet: Heart Healthy [place] Attending Provider Instructions: You have been hospitalized for left leg cellulitis. Imaging was negative for blood clot or fluid collection/abscess and you were treated with IV antibiotics, extended course, given extensive infection. We have transitioned to KEFLEX 500mg four times daily for a total 14 day course. End of treatment should be february 21. Monitor for diarrhea on antibioitics. Please continue to keep elevated and use AmLactin to keep stable. Consider referral to wound care as well as vascular for ablation in the future for venous insufficiency. Gabapentin 100mg daily for neuropathic pain continued. Pepcid twice daily for reflux. Follow up with medical providers at discharge. Return if worsening or having any symptoms concerning for you. [facility] [employer] Provider Instructions: DIABETES RECOMMENDATIONS: 1.) Due to frequent overnight hypoglycemia, recommend discontinue evening Glipizide vs. reduce glargine/Semglee by 20% --> 26 units. 2.) Aim to maintain BG values < 180 (ideally < 140 before meals) to support healing/continued recovery. Pending Studies at Discharge: No Stand-Alone Forms: My [facility] Skilled Items Patient informed of condition?: Yes Discharge Level of Care: Other Communicable Disease: No Discharge Prognosis: Stable Lines: None Urinary Catheter: No Medications and DC Order Prescriptions: New cephalexin 500 mg Capsule 500 mg PO Q6H 6 Days Qty: 24 0RF gabapentin 100 mg Capsule 100 mg PO QAM Qty: 30 0RF Lac-Hydrin Five 5 % Lotion 1 applic EXT BID Qty: 226 0RF famotidine [Pepcid] 20 mg tablet 20 mg PO BID Qty: 60 0RF bumetanide 1 mg tablet 1 mg PO DAILY PRN (Reason: weight gain or edema) Qty: 14 0RF Continued atorvastatin 10 mg Tablet 10 mg PO HS glipizide 5 mg Tablet 5 mg PO BID duloxetine 60 mg Capsule,Delayed Release(Dr/Ec) 60 mg PO BID Novolin R Regular U100 Insulin 100 unit/mL Solution 1 sliding scale dose SUBCUT USEASDIRECTD Rx Instructions: BSG 150-200=2 UNITS, 201-250=4 UNITS, 251-300=6 UNITS, 301-350=8 UNITS, 351- 400=10 UNITS, >400=CALL MD. ferrous sulfate 324 mg (65 mg iron) Tablet,Delayed Release (Dr/Ec) 324 mg PO Q OTHER DAY aspirin [Aspirin Childrens] 81 mg Tablet,Chewable 81 mg PO DAILY insulin glargine-yfgn [Semglee(insulin glargine-yfgn)] 100 unit/mL Solution 32 unit SUBCUT DAILY diclofenac sodium 50 mg Tablet,Delayed Release (Dr/Ec) 50 mg PO DAILY Discharge Orders: Discharge Order (Routine); Ordered 02/15/25 Ordered By: Carmen Ling Admission Data Admit Date/Time: 02/06/25 12:26 Attending Provider: Eduard Hampton Admit Provider: Manjit Cook Primary Care Provider: [facility] LEVINE Other Providers: Roberto Becerra Hospital Stay Data Consultations 02/06/25 12:08 ED Decision to Admit Stat Diagnostic Imagining Performed Venous Doppler Study 02/06/25 10:45 LEFT LOWER EXTREMITY VENOUS DOPPLER CLINICAL HISTORY: Left lower extremity pain and swelling. COMPARISON STUDY: Bilateral lower extremity venous Doppler ultrasound September 19, 2024. TECHNIQUE: Sonography of the deep venous system of the left lower extremity was performed. Compression and augmentation were evaluated. FINDINGS: The left common femoral, superficial femoral and popliteal veins were compressible. Augmentation was normal. Flow was shown within the deep calf vessels. Prominent left inguinal lymph node contains a fatty hilum and is elongated. This is likely benign. Left calf edema is noted. IMPRESSION: 1. No evidence of deep venous thrombus within the left lower extremity. 2. Left calf edema. ACT 112: Negative or not required by law. Electronically signed by: Honorio Santa M.D. 02/06/2025 1:22 PM KUB X-Ray 02/11/25 08:38 KUB HISTORY: n/v COMPARISON STUDY: None FINDINGS: 3 supine views of the abdomen are nonspecific. There is no evidence of bowel obstruction. There is no gastric distention. Stool burden is not pronounced. The properitoneal fat lines are maintained. Psoas margins are sharp. There are no concerning calcifications. There is severe degenerative disc disease at L2-3. IMPRESSION: No acute findings in the abdomen. ACT 112: Negative or not required by law. The above report was generated using voice recognition software. It may contain grammatical, syntax or spelling errors. Electronically signed by: Luisana Perera M.D. 02/11/2025 10:[address] 02/11/25 10:42 CT tib/fib LT wo/w con HISTORY: 74 years-old Male cellulitis, worsening, eval deeper infection/other acute soft tissue infection of the left lower leg COMPARISON: None TECHNIQUE: Multiple axial CT images of the left tibia and fibula were obtained with and without IV contrast. A dose lowering technique was used consistent with the principals of VINNIE. FINDINGS: Chondrocalcinosis with severe osteoarthritis of the knee. Moderate osteoarthritis of the ankle and hindfoot. No acute fracture, dislocation or osseous erosion. Moderate to extensive cutaneous thickening with subcutaneous edema. Arterial calcifications. Small joint effusion of the knee with synovial thickening. No discrete fluid collections. Tendons and ligaments are not well seen by CT. IMPRESSION: 1. Extensive dermal thickening with subcutaneous edema throughout the lower leg, ankle and imaged hindfoot. Differential considerations include cellulitis, v enous stasis or lymphedema. 2. No discrete fluid collections. 3. No acute osseous abnormality. 4. Severe osteoarthritis of the knee with chondrocalcinosis and joint effusion. ACT 112: Negative or not required by law. The above report was generated using voice recognition software. It may contain grammatical, syntax or spelling errors. Electronically signed by: Aureliano Brambila M.D. 02/11/2025 1:23 PM Chest X-Ray 02/15/25 07:34 HISTORY: Congestive heart failure nausea. TECHNIQUE: Portable AP radiograph of the chest. COMPARISON: Chest CT dated 09/19/2024. Chest radiograph dated 09/19/2024. FINDINGS: Mild cardiomegaly with pulmonary vascular congestion. No alfredo pulmonary edema. No focal lung consolidation. No pneumothorax or pleural effusion. Degenerative changes of the shoulders and spine. Included upper abdomen is unremarkable. IMPRESSION: * Cardiomegaly with mild vascular congestion could represent early CHF. No alfredo pulmonary edema. * No focal consolidation, significant pleural effusion, or pneumothorax. Electronically signed by Sherwin Moreno 02-15-2025 08:37 AM Discharge Instructions Given to Patient (Per Discharging Provider) You have been hospitalized for left leg cellulitis. Imaging was negative for blood clot or fluid collection/abscess and you were treated with IV antibiotics, extended course, given extensive infection. We have transitioned to KEFLEX 500mg four times daily for a total 14 day course. End of treatment should be february 21. Monitor for diarrhea on antibioitics. Please continue to keep elevated and use AmLactin to keep stable. Consider referral to wound care as well as vascular for ablation in the future for venous insufficiency. Gabapentin 100mg daily for neuropathic pain continued. Pepcid twice daily for reflux. Follow up with medical providers at discharge. Return if worsening or having any symptoms concerning for you. Supervising Physician Co-Signing Physician Notes The patient was not seen by me. The chart was reviewed. Case discussed with KEN Simmons. Agree with assessment and plan Total Time Total Time Spent Total Time Spent (In Minutes): 60 Coding Level of Care Code 05755 INP/OBS DISCH >30 MIN Diagnoses Left leg cellulitis L03.116 Type 2 diabetes mellitus with diabetic polyneuropathy, with long-term current use of insulin E11.42; Z79.4 Diabetes mellitus complication detail: with polyneuropathy Diabetes mellitus complication status: with neurologic complications Diabetes mellitus correction insulin use: with exterminator termite use Hyperlipidemia, unspecified hyperlipidemia type E78.5 Hyperlipidemia type: unspecified
[2025-02-15] MEDS ORDERED: Nursing to Pharmacy Communication SCH (11:15)
[2025-02-15] MEDS ORDERED: cephALEXin 500 MG CAP PO SCH (11:15)
[2025-02-15 11:54] VITALS: PULSE 94; TEMP 98.1; O2SAT 97
[2025-02-15 15:16] VITALS: BP 137/80
[2025-02-16] MEDS ORDERED: MAGNESIUM OXIDE 400 MG TAB PO SCH (09:00)
== END 2025-02-15 16:55 | DRG 603 ==
LOC: ED 10:14 → SUATTDRO 12:26 → EDINP 12:26 → 2W 14:30